=== PATIENT | female | born 1950 | race Caucasian/White ===

== ENCOUNTER 2022-04-02 15:48 | Inpatient (IN) ==
--- NOTE | 2022-04-02 16:11 | Emergency Department Note ---
HPI General Chief complaint: Recheck/Abnormal Lab/Rx Stated complaint: Covid Time Seen by Provider: 04/02/22 15:57 Source: patient Mode of arrival: wheelchair Limitations: no limitations History of Present Illness HPI Narrative: Narrative: This is a 71-year-old female who presents to the emergency department with a bnormal labs. Patient has been receiving IV daptomycin for a knee infection. She had lab work this morning that showed elevated kidney tests as well as elevated potassium. She was told to come to the emergency department for this. Patient states that her knee is doing better with the antibiotic. She denies any chest pain, shortness of breath, cough, nausea, vomiting, abdominal pain, or diarrhea. She had a mild sore throat this morning and took a home COVID test that was positive. She no longer has sore throat or any other COVID symptoms. Related Data Home Medications Medication Instructions Recorded Confirmed metoprolol succinate 50 mg capsule 50 mg PO QDAY 08/24/18 01/17/22 sprinkle, ext. release 24 hr losartan 50 mg tablet 50 mg PO QDAY 01/20/21 01/17/22 citalopram 40 mg tablet 40 mg PO QDAY 11/11/21 01/17/22 tramadol 50 mg tablet 50 mg PO TID PRN 11/11/21 01/17/22 Previous Rx's Medication Instructions Recorded albuterol sulfate 90 mcg/actuation 2 puff inhalation Q6H PRN 12/11/21 aerosol inhaler shortness of breath or wheezing #8.5 grams albuterol sulfate 90 mcg/actuation 2 puff inhalation .q4-6h PRN 01/17/22 aerosol inhaler (ProAir HFA) cough, shortness of breath, wheezing #8.5 grams prednisone 5 mg tablet See Rx Instructions PO .COMPLEX 01/17/22 #36 tabs Allergies Allergy/AdvReac Type Severity Reaction Status Date / Time Sulfa (Sulfonamide Allergy Severe ANAPHALAXIS Verified 04/02/22 15:55 Antibiotics) [SULFA (SULFONAMIDE ANTIBIOTICS)] latex [LATEX] Allergy Mild SWELLING/RE Verified 04/02/22 15:55 DNESS Cortisone Allergy Unknown "SICK" Verified 04/02/22 15:55 imiquimod Allergy Unknown Unknown Verified 04/02/22 15:55 sulfamethoxazole Allergy Unknown Unknown Verified 04/02/22 15:55 [From ] trimethoprim [From ] Allergy Unknown Unknown Verified 04/02/22 15:55 Carbonic Anhydrase Inhibitors AdvReac Unknown advise not Verified 04/02/22 15:55 to take due to r/o cdiff iv contrast Allergy Mild Hives Uncoded 01/17/22 13:55 Review of Systems ROS ROS Narrative: Narrative: All systems ED: reviewed and negative except as stated. [facility] Narrative Patient History Narrative: Narrative: Medical/Surgical/Family History All Active Problems (Updated 04/02/22 @ 22:37 by Philly Naqvi PA-C) COVID-19 (Acute) Hypoxia (Acute) Acute exacerbation of chronic obstructive pulmonary disease (Acute) Acute kidney injury (Acute) Acute hyperkalemia (Acute) Tinnitus (Acute) Headache (Acute) Sinusitis, acute (Acute) Cellulitis of right leg (Acute) History of arthroplasty of right knee (Acute) Acute exacerbation of chronic obstructive airways disease (Acute) Leg pain, right (Acute) Nocturnal hypoxia (Chronic) Hypersomnia (Chronic) Obesity (Chronic) Clostridium difficile colitis (Chronic) Chronic venous insufficiency (Chronic) Leg neuralgia (Chronic) Mixed incontinence urge and stress (Chronic) Recurrent acute sinusitis (Chronic) Generalized headaches (Chronic) Tremor, unspecified (Chronic) Nausea (Chronic) Bilateral thumb pain (Chronic) Abdominal pain, epigastric (Chronic) Dyspnea (Chronic) Incontinence of feces with fecal urgency (Chronic) Vesicular eczema of hands and feet (Chronic) Carpal tunnel syndrome, right upper limb (Chronic) Lumbar back pain (Chronic) Knee pain, right (Chronic) Basal cell carcinoma in situ of skin (Chronic) Dysuria (Chronic) Myalgia (Chronic) Pyelonephritis (Chronic) Anxiety (Chronic) Osteoarthrosis multiple sites, not specified as generalized (Chronic) COPD (chronic obstructive pulmonary disease) (Chronic) Paronychia (Acute) Abnormal liver function test (Chronic) Aortic aneurysm (Chronic) Dizziness (Chronic) Ocular migraine (Chronic) Stomach ache (Chronic) Recurrent Clostridium difficile diarrhea (Chronic) Hyperlipidemia (Chronic) Hypertension, essential (Chronic) Depression (Chronic) Joint pain (Chronic) Osteoarthritis (Chronic) Arthritis (Chronic) Tobacco use (Chronic) Medical History Abdominal pain, epigastric Abnormal liver function test Anxiety Aortic aneurysm Arthritis 2006 Basal cell carcinoma in situ of skin Shoulder Bilateral thumb pain Carpal tunnel syndrome, right upper limb Chronic venous insufficiency Clostridium difficile colitis COPD (chronic obstructive pulmonary disease) Depression 2006 Dizziness 2015 Dyspnea Dysuria Generalized headaches Headache Hepatitis HIV antibody positive Hyperlipidemia 2006 Hypersomnia Hypertension, essential 2006 Incontinence of feces with fecal urgency Joint pain 2006 Knee pain, right Leg neuralgia Lumbar back pain Mixed incontinence urge and stress Myalgia Nausea Nocturnal hypoxia Obesity Ocular migraine 2015 Osteoarthritis 2006 Osteoarthrosis multiple sites, not specified as generalized Pyelonephritis Recurrent acute sinusitis Recurrent Clostridium difficile diarrhea 2016 Sinusitis, acute Stomach ache 2016 following c-diff Tinnitus Tobacco use Tremor, unspecified Vesicular eczema of hands and feet Surgical History H/O colonoscopy (01/17/16) History of carpal tunnel surgery (~2012) Left History of total knee arthroplasty (~2012) Left S/P hip replacement (~2014) Left S/P knee replacement 2014 Family History Mother Arthritis Alzheimer's disease Stroke Heart disease Diabetes Father Arthritis Liver cancer Stroke Heart disease Sister Arthritis Alzheimer's disease Hypertension, essential Thyroid disease Social History Smoking Status: Current every day smoker Alcohol Intake Frequency: does not drink Substance Use: marijuana Exam Narrative Narrative: Narrative: General Limitations: no limitations General appearance: Present alert and obese Head Head: Present atraumatic and normocephalic Respiratory Respiratory: Present normal lung sounds bilaterally Cardiovascular Cardiovascular: Present regular rate, normal rhythm and normal heart sounds Adbominal Abdominal: Present soft; Absent tenderness Extremities Extremities: Present other (Well-healed scar over the left knee. Right knee has a Mepilex dressing over it. Mild swelling without erythema.) Course Vital Signs Vital signs: Vital Signs Temperature 97.0 F 04/02/22 15:51 Respiratory Rate 16 04/02/22 15:51 Blood Pressure 104/66 04/02/22 15:51 Oxygen Delivery Method Room Air 04/02/22 15:51 Temperature 97.0 F 04/02/22 15:51 Pulse Rate 82 04/02/22 20:29 Respiratory Rate 15 04/02/22 21:01 Blood Pressure 98/58 04/02/22 21:01 Pulse Oximetry (%) 92 04/02/22 20:29 Oxygen Delivery Method Room Air 04/02/22 15:51 MDM MDM Narrative Medical decision making narrative: Narrative: Chem-8 and EKG have been ordered. EKG is reviewed with the emergency room physician. There are no peaked T waves. Creatinine is 3.7, potassium 6. IV insulin, dextrose, and calcium gluconate were ordered. She is also treated with a liter of normal saline. I have discussed the patient with the emergency room physician. Plan is to admit the patient for acute kidney injury and hyper kalemia. Unfortunately there are no beds available at this hospital. I did speak with at [facility] in [facility]. He requested that a BMP be done at this time. If the patient's potassium and creatinine have improved she will be excepted at [facility]. A BMP was ordered. When results were available it became apparent that the labs were run on patient's original specimen. The results also showed a blood sugar of 29. This was rechecked and patient's blood sugar is 123 in the emergency department. I received a call while waiting on lab results from [facility] and after further discussion patient was not excepted at their hospital. A bed did not then become available at this hospital. I spoke with our bandoleer packer, Dr. Cisse, who stated that he would consult on this patient if the hospitalist were willing to admit this patient. I did speak with Dr. Lawson who is willing to accept this patient. Lab Data 04/02/22 16:58 Labs: Lab Results 04/02/22 04/02/22 04/02/22 Range/Units 16:28 16:58 18:11 WBC (4.5-11.0) K/mcL RBC (3.59-5.38) M/mcL Hgb (11.2-15.7) g/dL Hct (34.1-44.9) % POC Hct 26.0 L (36-48) MCV (80.0-100.0) fL MCH (26.0-34.0) pg MCHC (31.0-36.0) g/dL RDW (11.5-14.5) % Plt Count (140-440) K/mcL MPV (8.8-12.5) fL Immature Gran % (Auto) (0.0-0.5) % Neut % (Auto) (38.0-78.0) % Lymph % (Auto) (15.5-49.0) % [place] % (Auto) (1.0-12.0) % Eos % (Auto) (0.0-7.0) % Baso % (Auto) (0.0-2.0) % Lymph # (Auto) (1.50-4.80) K/mcL [place] # (Auto) (0.10-0.90) K/mcL Eos # (Auto) (0.00-0.70) K/mcL Baso # (Auto) (0.00-0.30) K/mcL Immature Gran # (0.00-0.05) K/mcl Absolute Neutrophils (1.80-8.00) K/mcL POC Sodium 134 (133-145) Sodium 133 (133-145) mmol/L POC Potassium 6.0 H* (3.3-5.1) Potassium 6.0 H* 5.7 H (3.3-5.1) mmol/L POC Chloride 104 (96-108) Chloride 100 (96-108) mmol/L Carbon Dioxide 23 (22-30) mmol/L POC Total CO2 25.0 (22-30) Anion Gap 10.0 (8.0-16.0) POC BUN 89 H (6-20) BUN 75 H (8-23) mg/dL Creatinine 2.9 H (0.6-1.1) mg/dL POC Creatinine 3.7 H (0.6-1.2) GFR Calculation 15 Glucose 99 (70-105) mg/dL POC Glucose 103 (70-105) Calcium 8.5 L (8.6-10.4) mg/dL POC WB Ioniz Calcium 1.18 (1.16-1.32) Total Bilirubin < 0.2 (0.1-1.0) mg/dL AST 15 (<32) U/L ALT 11 (<40) U/L Alkaline Phosphatase 138 H (39-117) U/L Total Protein 6.6 (5.9-8.4) gm/dL Albumin 3.0 L (3.2-5.2) gm/dL Globulin 3.6 (2.2-3.7) gm/dL Albumin/Globulin Ratio 0.8 L (1.0-2.3) 04/02/22 04/02/22 Range/Units 19:15 20:00 WBC 6.3 (4.5-11.0) K/mcL RBC 2.87 L (3.59-5.38) M/mcL Hgb 8.5 L (11.2-15.7) g/dL Hct 28.0 L (34.1-44.9) % POC Hct (36-48) MCV 97.6 (80.0-100.0) fL MCH 29.6 (26.0-34.0) pg MCHC 30.4 L (31.0-36.0) g/dL RDW 14.3 (11.5-14.5) % Plt Count 302 (140-440) K/mcL MPV 10.4 (8.8-12.5) fL Immature Gran % (Auto) 0.2 (0.0-0.5) % Neut % (Auto) 59.3 (38.0-78.0) % Lymph % (Auto) 22.2 (15.5-49.0) % [place] % (Auto) 11.5 (1.0-12.0) % Eos % (Auto) 6.3 (0.0-7.0) % Baso % (Auto) 0.5 (0.0-2.0) % Lymph # (Auto) 1.41 L (1.50-4.80) K/mcL [place] # (Auto) 0.73 (0.10-0.90) K/mcL Eos # (Auto) 0.40 (0.00-0.70) K/mcL Baso # (Auto) 0.03 (0.00-0.30) K/mcL Immature Gran # 0.01 (0.00-0.05) K/mcl Absolute Neutrophils 3.76 (1.80-8.00) K/mcL POC Sodium (133-145) Sodium 135 (133-145) mmol/L POC Potassium (3.3-5.1) Potassium 5.6 H (3.3-5.1) mmol/L POC Chloride (96-108) Chloride 101 (96-108) mmol/L Carbon Dioxide 22 (22-30) mmol/L POC Total CO2 (22-30) Anion Gap 12.0 (8.0-16.0) POC BUN (6-20) BUN 76 H (8-23) mg/dL Creatinine 3.0 H (0.6-1.1) mg/dL POC Creatinine (0.6-1.2) GFR Calculation 15 Glucose 29 L* (70-105) mg/dL POC Glucose (70-105) Calcium 8.8 (8.6-10.4) mg/dL POC WB Ioniz Calcium (1.16-1.32) Total Bilirubin (0.1-1.0) mg/dL AST (<32) U/L ALT (<40) U/L Alkaline Phosphatase (39-117) U/L Total Protein (5.9-8.4) gm/dL Albumin (3.2-5.2) gm/dL Globulin (2.2-3.7) gm/dL Albumin/Globulin Ratio (1.0-2.3) ED POC Tests ED POC Tests: PEDRO PABLO - SARS Antigen Negative Discharge Plan Patient/Caregiver Discharge Instructions Pt seen by FLIGHT SERVICE SPECIALIST/PA only: Yes Clinical Impression: Acute kidney injury, Acute hyperkalemia Patient Disposition: Xfer As Inpt ([facility]) Follow up with: Destiny Sarabia MD [Primary Care Provider] - Prescriptions: No Action metoprolol succinate 50 mg cap,susan,ER 24hr dose pack 50 mg PO QDAY citalopram 40 mg tablet 40 mg PO QDAY tramadol 50 mg tablet 50 mg PO TID PRN albuterol sulfate [ProAir HFA] 90 mcg/actuation HFA aerosol inhaler 2 puff inhalation .q4-6h PRN (Reason: cough, shortness of breath, wheezing) Qty: 8.5 0RF Rx Instructions: administer with spacer prednisone 5 mg tablet See Rx Instructions PO .COMPLEX Qty: 36 0RF Rx Instructions: prednisone 5 mg: take 8 tablets (40 mg) on Day 1; 7 tablets (35 mg) on Day 2; then decrease by 1 tablet every day until finished PO [id number] [Trelegy Ellipta] 100-62.5-25 mcg blister with device 1 inh inhalation QDAY 0RF losartan 50 mg tablet 50 mg PO QDAY albuterol sulfate 90 mcg/actuation HFA aerosol inhaler 2 puff inhalation Q6H PRN (Reason: shortness of breath or wheezing) Qty: 8.5 0RF
[2022-04-02 16:33] LABS: POC Calcium, Ionized 1.18 (1.16-1.32); POC Creatinine 3.7 (0.6-1.2)
[2022-04-02] MEDS ORDERED: INSULIN REGULAR, HUMAN 1 UNIT/0.01 ML UNIT IV ONE (16:46)
[2022-04-02] MEDS ORDERED: DEXTROSE 50% 50 ML VIAL IV ONE ×2 (16:46→20:54)
[2022-04-02] MEDS ORDERED: CALCIUM GLUCONATE 4.65 MEQ in DEXTROSE 5% IN WATER 50 ML IV ONE (16:54)
[2022-04-02 18:11] LABS: ALT/SGPT 11 U/L (<40); AST/SGOT 15 U/L (<32); Albumin/Globulin Ratio 0.8 (1.0-2.3); Alkaline Phosphatase 138 U/L (39-117); Bilirubin,Total < 0.2 mg/dL (0.1-1.0); Blood Urea Nitrogen 75 mg/dL (8-23); Calcium 8.5 mg/dL (8.6-10.4); Carbon Dioxide 23 mmol/L (22-30); Chloride 100 mmol/L (96-108); Globulin 3.6 gm/dL (2.2-3.7); Glomerular Filtration Rate 15; Glucose 99 mg/dL (70-105)
[2022-04-02] MEDS ORDERED: 0.9 % SODIUM CHLORIDE 1,000 ML IV ONE (18:34)
[2022-04-02 20:41] LABS: Basophils # (Auto) 0.03 K/mcL (0.00-0.30); Basophils % (Auto) 0.5 % (0.0-2.0); Eosinophils % (Auto) 6.3 % (0.0-7.0); Hemoglobin 8.5 g/dL (11.2-15.7); Lymphocytes # (Auto) 1.41 K/mcL (1.50-4.80); Lymphocytes % (Auto) 22.2 % (15.5-49.0); Mean Cell Volume 97.6 fL (80.0-100.0); Mean Corpuscular HGB Conc 30.4 g/dL (31.0-36.0); Mean Platelet Volume 10.4 fL (8.8-12.5); Monocytes # (Auto) 0.73 K/mcL (0.10-0.90); Monocytes % (Auto) 11.5 % (1.0-12.0); Neutrophils % (Auto) 59.3 % (38.0-78.0); Platelet Count 302 K/mcL (140-440); RBC 2.87 M/mcL (3.59-5.38); Red Cell Distribution Width 14.3 % (11.5-14.5); WBC 6.3 K/mcL (4.5-11.0)
[2022-04-02 20:55] LABS: Blood Urea Nitrogen 76 mg/dL (8-23); Calcium 8.8 mg/dL (8.6-10.4); Carbon Dioxide 22 mmol/L (22-30); Chloride 101 mmol/L (96-108); Glomerular Filtration Rate 15; Glucose 29 mg/dL (70-105)
[2022-04-02 21:29] LABS: Blood Urea Nitrogen 74 mg/dL (8-23); Calcium 8.2 mg/dL (8.6-10.4); Carbon Dioxide 22 mmol/L (22-30); Chloride 100 mmol/L (96-108); Glomerular Filtration Rate 16; Glucose 107 mg/dL (70-105)
--- NOTE | 2022-04-02 22:25 | Internal Med History&Physical ---
HPI History of Present Illness Patient information: Note initiated : 04/02/22 at 10:12 pm Service Date, if different from initiated Date: [] Patient: Corin Bryant a 71 y/o F admitted on for Covid. Chief Complaint: [] History of present illness: Ms. Bryant is a 71 year old F Patient presents to the ED sent in because she had abnormal labs. The labs were routine because she was on IV daptomycin for a knee infection. Patient had a revision of her right knee a week ago by Dr. Marcus at [place]. She was sent home on IV daptomycin infusions. Wound cultures that she showed grew MSSA. The only other new medications she started recently was torsemide several months ago when she started seeing Dr. Chowdhury for chronic kidney disease. She states that since she got out of the hospital she has had her good and bad days. She says since she has been out of the hospital she feels has not been drinking as much fluid as usual. She does have history of lower extremity edema which is improved since starting on the torsemide. She is found to have a creatinine of 2.9 and a potassium of 6.0. She received insulin and glucose in the ED. As well as calcium gluconate. She is also received IV fluids. Potassium did come down to 5.6. Patient also takes losartan. Review of Systems: Pertinent positives above plus constipation. Denies headache/fever/chills/nausea/vomiting/chest or abdominal pain/cough/dyspnea Remaining 10 point review of system reviewed negative PHYSICAL EXAM: General: Drowsy, Awakens, No acute Distress, obese Eyes/N/T: EOMI, no scleral icterus, PERRL, dry MM Head/Neck: neck supple, full ROM, normocephalic atraumatic CV: RRR, No murmurs, normal s1/s2 Pulm: Clear b/l, no wheezing/rhonchi/rales, no respiratory distress Abd: soft, nontender, +BS x4 Ext: no clubbing/cyanosis, trace b/l LE edema, Right knee incision dressing Neuro: Drowsy and sometimes forgetful or slow to respond, no focal deficits, moves all extremities, CN 2-12 grossly intact, sensations intact b/l upper/lower Psychiatric: Skin: warm/dry, normal color PFSH PFSH All Active Problems COVID-19 (Acute) Hypoxia (Acute) Acute exacerbation of chronic obstructive pulmonary disease (Acute) Tinnitus (Acute) Headache (Acute) Sinusitis, acute (Acute) Cellulitis of right leg (Acute) History of arthroplasty of right knee (Acute) Acute exacerbation of chronic obstructive airways disease (Acute) Leg pain, right (Acute) Nocturnal hypoxia (Chronic) Hypersomnia (Chronic) Obesity (Chronic) Clostridium difficile colitis (Chronic) Chronic venous insufficiency (Chronic) Leg neuralgia (Chronic) Mixed incontinence urge and stress (Chronic) Recurrent acute sinusitis (Chronic) Generalized headaches (Chronic) Tremor, unspecified (Chronic) Nausea (Chronic) Bilateral thumb pain (Chronic) Abdominal pain, epigastric (Chronic) Dyspnea (Chronic) Incontinence of feces with fecal urgency (Chronic) Vesicular eczema of hands and feet (Chronic) Carpal tunnel syndrome, right upper limb (Chronic) Lumbar back pain (Chronic) Knee pain, right (Chronic) Basal cell carcinoma in situ of skin (Chronic) Dysuria (Chronic) Myalgia (Chronic) Pyelonephritis (Chronic) Anxiety (Chronic) Osteoarthrosis multiple sites, not specified as generalized (Chronic) COPD (chronic obstructive pulmonary disease) (Chronic) Paronychia (Acute) Abnormal liver function test (Chronic) Aortic aneurysm (Chronic) Dizziness (Chronic) Ocular migraine (Chronic) Stomach ache (Chronic) Recurrent Clostridium difficile diarrhea (Chronic) Hyperlipidemia (Chronic) Hypertension, essential (Chronic) Depression (Chronic) Joint pain (Chronic) Osteoarthritis (Chronic) Arthritis (Chronic) Tobacco use (Chronic) Medical History Abdominal pain, epigastric Abnormal liver function test Anxiety Aortic aneurysm Arthritis 2006 Basal cell carcinoma in situ of skin Shoulder Bilateral thumb pain Carpal tunnel syndrome, right upper limb Chronic venous insufficiency Clostridium difficile colitis COPD (chronic obstructive pulmonary disease) Depression 2006 Dizziness 2015 Dyspnea Dysuria Generalized headaches Headache Hepatitis HIV antibody positive Hyperlipidemia 2006 Hypersomnia Hypertension, essential 2006 Incontinence of feces with fecal urgency Joint pain 2006 Knee pain, right Leg neuralgia Lumbar back pain Mixed incontinence urge and stress Myalgia Nausea Nocturnal hypoxia Obesity Ocular migraine 2015 Osteoarthritis 2006 Osteoarthrosis multiple sites, not specified as generalized Pyelonephritis Recurrent acute sinusitis Recurrent Clostridium difficile diarrhea 2016 Sinusitis, acute Stomach ache 2016 following c-diff Tinnitus Tobacco use Tremor, unspecified Vesicular eczema of hands and feet Surgical History H/O colonoscopy (01/17/16) History of carpal tunnel surgery (~2012) Left History of total knee arthroplasty (~2012) Left S/P hip replacement (~2014) Left S/P knee replacement 2014 Family History Mother Arthritis Alzheimer's disease Stroke Heart disease Diabetes Father Arthritis Liver cancer Stroke Heart disease Sister Arthritis Alzheimer's disease Hypertension, essential Thyroid disease Social History marital status: occupational status: employed occupation: [place] other: Children-4 smoking status: Current every day smoker tobacco type: cigarettes per day: 5 pack-years: 50 alcohol intake frequency: does not drink substance use type: marijuana MEDS/ALLERGIES Home Medications and Allergies Home Medications Medication Instructions Recorded Confirmed Type metoprolol succinate 50 mg capsule 50 mg PO QDAY 08/24/18 01/17/22 History sprinkle, ext. release 24 hr losartan 50 mg tablet 50 mg PO QDAY 01/20/21 01/17/22 History citalopram 40 mg tablet 40 mg PO QDAY 11/11/21 01/17/22 History tramadol 50 mg tablet 50 mg PO TID PRN 11/11/21 01/17/22 History albuterol sulfate 90 mcg/actuation 2 puff inhalation Q6H PRN 12/11/21 01/17/22 Rx aerosol inhaler shortness of breath or wheezing #8.5 grams albuterol sulfate 90 mcg/actuation 2 puff inhalation .q4-6h PRN 01/17/22 01/17/22 Rx aerosol inhaler (ProAir HFA) cough, shortness of breath, wheezing #8.5 grams prednisone 5 mg tablet See Rx Instructions PO .COMPLEX 01/17/22 01/17/22 Rx #36 tabs Allergies Allergy/AdvReac Type Severity Reaction Status Date / Time Sulfa (Sulfonamide Allergy Severe ANAPHALAXIS Verified 04/02/22 15:55 Antibiotics) [SULFA (SULFONAMIDE ANTIBIOTICS)] latex [LATEX] Allergy Mild SWELLING/RE Verified 04/02/22 15:55 DNESS Cortisone Allergy Unknown "SICK" Verified 04/02/22 15:55 imiquimod Allergy Unknown Unknown Verified 04/02/22 15:55 sulfamethoxazole Allergy Unknown Unknown Verified 04/02/22 15:55 [From ] trimethoprim [From ] Allergy Unknown Unknown Verified 04/02/22 15:55 Carbonic Anhydrase Inhibitors AdvReac Unknown advise not Verified 04/02/22 15:55 to take due to r/o cdiff iv contrast Allergy Mild Hives Uncoded 01/17/22 13:55 EXAM Constitutional Vitals: Temp Pulse Resp BP Pulse Ox O2 Del Method 97.0 F 82 16 96/82 92 Room Air 04/02/22 15:51 04/02/22 20:29 04/02/22 21:31 04/02/22 21:31 04/02/22 20:29 04/02/22 15:51 DATA Data Completed and Pending Labs: Labs from last 24 hours 04/02/22 04/02/22 04/02/22 20:00 20:00 19:15 WBC 6.3 RBC 2.87 L Hgb 8.5 L Hct 28.0 L POC Hct MCV 97.6 MCH 29.6 MCHC 30.4 L RDW 14.3 Plt Count 302 MPV 10.4 Immature Gran % (Auto) 0.2 Neut % (Auto) 59.3 Lymph % (Auto) 22.2 [place] % (Auto) 11.5 Eos % (Auto) 6.3 Baso % (Auto) 0.5 Lymph # (Auto) 1.41 L [place] # (Auto) 0.73 Eos # (Auto) 0.40 Baso # (Auto) 0.03 Immature Gran # 0.01 Absolute Neutrophils 3.76 POC Sodium Sodium 133 135 POC Potassium Potassium 5.8 H 5.6 H POC Chloride Chloride 100 101 Carbon Dioxide 22 22 POC Total CO2 Anion Gap 11.0 12.0 POC BUN BUN 74 H 76 H Creatinine 2.8 H 3.0 H POC Creatinine GFR Calculation 16 15 Glucose 107 H 29 L* POC Glucose Calcium 8.2 L 8.8 POC WB Ioniz Calcium Total Bilirubin AST ALT Alkaline Phosphatase Total Protein Albumin Globulin Albumin/Globulin Ratio 04/02/22 04/02/22 04/02/22 18:11 16:58 16:28 WBC RBC Hgb Hct POC Hct 26.0 L MCV MCH MCHC RDW Plt Count MPV Immature Gran % (Auto) Neut % (Auto) Lymph % (Auto) [place] % (Auto) Eos % (Auto) Baso % (Auto) Lymph # (Auto) [place] # (Auto) Eos # (Auto) Baso # (Auto) Immature Gran # Absolute Neutrophils POC Sodium 134 Sodium 133 POC Potassium 6.0 H* Potassium 5.7 H 6.0 H* POC Chloride 104 Chloride 100 Carbon Dioxide 23 POC Total CO2 25.0 Anion Gap 10.0 POC BUN 89 H BUN 75 H Creatinine 2.9 H POC Creatinine 3.7 H GFR Calculation 15 Glucose 99 POC Glucose 103 Calcium 8.5 L POC WB Ioniz Calcium 1.18 Total Bilirubin < 0.2 AST 15 ALT 11 Alkaline Phosphatase 138 H Total Protein 6.6 Albumin 3.0 L Globulin 3.6 Albumin/Globulin Ratio 0.8 L A/P Narrative A/P Narrative: A: *JORGE on CKD IV: 2/2 poor oral intake and volume depletion from diuretics + ARB *Hyperkalemia: 2/2 above, possibly component of daptomycin but more likely multifactorial from above *Encephalopathy(drowsy/forgetful): 2/2 above vs Uremia *Anemia, chronic: *HTN:soft on admit, monitor *COPD(not on home O2): cont home IH's, monitor *Depression/anxiety: cont ssri, monitor *s/p right knee revision d/t infection: on daptomycin outpt P: -IVF -kayexalate -hold ARB and BB for jorge and soft BP -hold torsemide -Monitor UOP, renal function, i/o -f/u chemistry/potassium, h&h -tele - -Home medication reconciliation -PT/OT -ppx: Heparin Time Spent With Patient Time: Total time spent is greater than 50% in coordination of care (as documented) at patient's floor/unit and/or counseling patient: Initial: Total time with patient: 75 - 90 minutes
[2022-04-03] MEDS ORDERED: SODIUM POLYSTYRENE SULFONATE 15 GM/60 ML SUSPENSION PO ONE ×2 (00:57→12:00)
[2022-04-03] MEDS ORDERED: 0.9 % SODIUM CHLORIDE 1,000 ML IV SCH ×2 (00:57→11:15)
[2022-04-03] MEDS ORDERED: ONDANSETRON 4 MG/2 ML VIAL IV PRN (00:57)
[2022-04-03] MEDS ORDERED: HYDROcodone/APAP 5/325MG TABLET PO PRN (00:57)
[2022-04-03] MEDS ORDERED: MAGNESIUM SULFATE 2 GM/50 ML BAG IV PRN (00:57)
[2022-04-03] MEDS ORDERED: POTASSIUM CHLORIDE 20 MEQ TABLET PO PRN ×2 (00:57)
[2022-04-03] MEDS ORDERED: LACTULOSE 20 GM/30 ML ORAL.SOL PO PRN (00:57)
[2022-04-03] MEDS ORDERED: POTASSIUM CHLORIDE 40 MEQ in DEXTROSE 5% IN WATER 500 ML IV PRN (00:57)
[2022-04-03] MEDS ORDERED: 0.9 % SODIUM CHLORIDE 500 ML IV ONE (00:57)
[2022-04-03] MEDS ORDERED: IPRATROPIUM/ALBUTEROL 3 ML AMPUL.NEB NEB PRN (00:57)
[2022-04-03] MEDS ORDERED: POLYETHYLENE GLYCOL 3350 17 GM PACKET PO PRN (00:57)
[2022-04-03] MEDS ORDERED: SENNOSIDES 1 TABLET PO PRN (00:57)
[2022-04-03] MEDS ORDERED: SODIUM POLYSTYRENE SULFONATE 15 GM/60 ML SUSPENSION ONE (01:09)
[2022-04-03] MEDS: 0.9 % SODIUM CHLORIDE 10 ML SYRINGE IV SCH ×6 (01:09→22:01)
[2022-04-03 06:20] LABS: Basophils # (Auto) 0.04 K/mcL (0.00-0.30); Basophils % (Auto) 0.6 % (0.0-2.0); Eosinophils # (Auto) 0.29 K/mcL (0.00-0.70); Eosinophils % (Auto) 4.4 % (0.0-7.0); Hematocrit 28.5 % (34.1-44.9); Hemoglobin 8.6 g/dL (11.2-15.7); Lymphocytes # (Auto) 1.76 K/mcL (1.50-4.80); Lymphocytes % (Auto) 26.8 % (15.5-49.0); Mean Cell Volume 96.9 fL (80.0-100.0); Mean Corpuscular HGB Conc 30.2 g/dL (31.0-36.0); Mean Platelet Volume 9.9 fL (8.8-12.5); Monocytes # (Auto) 0.78 K/mcL (0.10-0.90); Monocytes % (Auto) 11.9 % (1.0-12.0); Neutrophils % (Auto) 56.1 % (38.0-78.0); Platelet Count 268 K/mcL (140-440); RBC 2.94 M/mcL (3.59-5.38); Red Cell Distribution Width 14.5 % (11.5-14.5); WBC 6.6 K/mcL (4.5-11.0)
[2022-04-03 06:35] LABS: ALT/SGPT 14 U/L (<40); AST/SGOT 14 U/L (<32); Albumin/Globulin Ratio 0.8 (1.0-2.3); Alkaline Phosphatase 129 U/L (39-117); Bilirubin,Direct < 0.2 mg/dL (0-0.3); Bilirubin,Total 0.2 mg/dL (0.1-1.0); Blood Urea Nitrogen 68 mg/dL (8-23); Calcium 8.1 mg/dL (8.6-10.4); Carbon Dioxide 24 mmol/L (22-30); Chloride 103 mmol/L (96-108); Globulin 3.6 gm/dL (2.2-3.7); Glomerular Filtration Rate 18; Glucose 102 mg/dL (70-105); Lactate Dehydrogenase 263 U/L (135-225); Phosphorous 4.8 mg/dL (2.5-4.5); Triglycerides 207 mg/dL (<150); Uric Acid 7.9 mg/dL (2.5-8.0)
--- NOTE | 2022-04-03 07:17 | Nephrology Consult Note ---
HPI Date of Consult Consult Date: 04/03/22 Primary Care Provider: Destiny Sarabia Consult Narrative Chief complaint: Abnl Labs Reason for consult: Hyperkalemia and ARF on CKD 3 History of present illness: See Dr Lawson's note below: Patient presents to the ED sent in because she had abnormal labs. The labs were routine because she was on IV daptomycin for a knee infection. Patient had a revision of her right knee a week ago by Dr. Marcus at [place]. She was sent home on IV daptomycin infusions. Wound cultures that she showed grew MSSA. The only other new medications she started recently was torsemide several months ago when she started seeing Dr. Chowdhury for chronic kidney disease. She states that since she got out of the hospital she has had her good and bad days. She says since she has been out of the hospital she feels has not been drinking as much fluid as usual. She does have history of lower extremity edema which is improved since starting on the torsemide. She is found to have a creatinine of 2.9 and a potassium of 6.0. She received insulin and glucose in the ED. As well as calcium gluconate. She is also received IV fluids. Potassium did come down to 5.6. Patient also takes losartan. When I was called by ED staff, I was told BP 96/60. I advised the ER to stop LOSARTAN, Stop any NSAIDs and start to hydrate with IVF. More likely than ARF from Daptomycin would be ARF from diuresis, ARB, hypotension and vasodilation 2 /2 infection +/- NSAIDs. Also told 50% chance of needing Acute HD and if there is going to be improvement in GFR, it could take 72 hrs from last dose of losartan to see some improvement. Hears the history I was able to glean from the patient and some records from [facility]. Patient has a history of mild chronic kidney disease with creatinine about 1.[address] Chowdhury. When asked what her kidney disease is from all she can tell me is high blood pressure and smoking. Asked if she was 1 taking a lot of nonsteroidal anti-inflammatories for DJD she tells me no she has been told not to take those medicines. She does have obesity she apparently does not have diabetes or significant proteinuria. Orthopedic problems were initially addressed with right TKA in November [id number] by Dr. Marcus. When okay until she presented to the [facility] on 03/21/2022. There I see she was taking meloxicam 15 mg a day so this no doubt is an additional factor in her acute renal failure but the problem at that stay was that she had worsening knee pain swelling and redness she was placed on tramadol Percocet amoxicillin and Flagyl. Outpatient therapy apparently failed to improve her right knee pain. Hand notation in the chart on March 24, 2022 reports cultures from the knee with gram-positive cocci. On 03/24/2022 she will underwent a right knee irrigation and debridement and antibiotic bead placement and right knee revision with 1 component of the knee replaced. At time of opening the knee there was a gush of purulent fluid so there is no question of the diagnosis and the white count was 9800 at that time along with a BUN of 48 and a creatinine of 2.0 sodium was 132 potassium 4 9 albumin was 3.6 and cultures from the ninth were reported to grow Staph aureus which was pansensitive except for intermediate to tetracycline a PICC line was placed on the and ultimately she was placed on daptomycin every other day daily dosing. She was trained up to do it her self. When looking at the possibilities of how this could have been infected 2 years later it is obvious that this lady is having some sort of allergic reaction (meloxicam) and her body is covered with a red rash especially her lower extremities which is pruritic enough that she is excoriated and no doubt introduced bacteria into her knee by the rash and excoriation from itching. Also of the meloxicam is the missing link into why her renal function is declining as she is on both a Boone 2 inhibitor and a RAASI inhibitor which would lead to dysregulation of renal blood flow particularly if she had low blood pressure which she did in the emergency room as I was told of is in the 90s systolic. My advice would be absolutely no Boone 2 inhibitors aspirin or NSAIDs. Hydrate to get the blood pressure around 120/80 to 130/80 You can continue the metoprolol I will hold the tourism I had for a while Stop the losartan for at least 48 hours Since by history her rash started well before she was placed on daptomycin I would just continue without antibiotic unless she developed an eosinophilia or worsening renal function I expect both her kidney function and potassium to improve in 72 hours now that has been able to complete the history taking Serum Creatinine Serum Potassium cc:: CC: Ascencion Lawson Review of Systems Review of systems: As per Hx and Hospital med note Old records from ortho and [facility] reviewed (+) Meloxicam => RASH and now ARF on CKD 3 CKD 3 HTN and vascular disease [employer] Intern is [place]. PFSH PFSH All Active Problems (Updated 04/03/22 @ 14:29 by Ian Cisse MD) Infection of total knee replacement (Acute) Acute renal failure superimposed on chronic kidney disease (Acute) Allergic drug rash due to non-narcotic analgesic (Acute) Tobacco use (Chronic) Arthritis (Chronic) Osteoarthritis (Chronic) Joint pain (Chronic) Depression (Chronic) Hypertension, essential (Chronic) Hyperlipidemia (Chronic) Recurrent Clostridium difficile diarrhea (Chronic) Stomach ache (Chronic) Ocular migraine (Chronic) Dizziness (Chronic) Aortic aneurysm (Chronic) Abnormal liver function test (Chronic) Paronychia (Acute) COPD (chronic obstructive pulmonary disease) (Chronic) Osteoarthrosis multiple sites, not specified as generalized (Chronic) Anxiety (Chronic) Pyelonephritis (Chronic) Myalgia (Chronic) Dysuria (Chronic) Basal cell carcinoma in situ of skin (Chronic) Knee pain, right (Chronic) Lumbar back pain (Chronic) Carpal tunnel syndrome, right upper limb (Chronic) Vesicular eczema of hands and feet (Chronic) Incontinence of feces with fecal urgency (Chronic) Dyspnea (Chronic) Abdominal pain, epigastric (Chronic) Bilateral thumb pain (Chronic) Nausea (Chronic) Tremor, unspecified (Chronic) Generalized headaches (Chronic) Recurrent acute sinusitis (Chronic) Mixed incontinence urge and stress (Chronic) Leg neuralgia (Chronic) Chronic venous insufficiency (Chronic) Clostridium difficile colitis (Chronic) Obesity (Chronic) Hypersomnia (Chronic) Nocturnal hypoxia (Chronic) Leg pain, right (Acute) Cellulitis of right leg (Acute) History of arthroplasty of right knee (Acute) Acute exacerbation of chronic obstructive airways disease (Acute) Sinusitis, acute (Acute) Headache (Acute) Tinnitus (Acute) COVID-19 (Acute) Hypoxia (Acute) Acute exacerbation of chronic obstructive pulmonary disease (Acute) Acute kidney injury (Acute) Acute hyperkalemia (Acute) Medical History Abdominal pain, epigastric Abnormal liver function test Anxiety Aortic aneurysm Arthritis 2006 Basal cell carcinoma in situ of skin Shoulder Bilateral thumb pain Carpal tunnel syndrome, right upper limb Chronic venous insufficiency Clostridium difficile colitis COPD (chronic obstructive pulmonary disease) Depression 2006 Dizziness 2015 Dyspnea Dysuria Generalized headaches Headache Hepatitis HIV antibody positive Hyperlipidemia 2006 Hypersomnia Hypertension, essential 2006 Incontinence of feces with fecal urgency Joint pain 2006 Knee pain, right Leg neuralgia Lumbar back pain Mixed incontinence urge and stress Myalgia Nausea Nocturnal hypoxia Obesity Ocular migraine 2015 Osteoarthritis 2006 Osteoarthrosis multiple sites, not specified as generalized Pyelonephritis Recurrent acute sinusitis Recurrent Clostridium difficile diarrhea 2016 Sinusitis, acute Stomach ache 2016 following c-diff Tinnitus Tobacco use Tremor, unspecified Vesicular eczema of hands and feet Surgical History H/O colonoscopy (01/17/16) History of carpal tunnel surgery (~2012) Left History of total knee arthroplasty (~2012) Left S/P hip replacement (~2014) Left S/P knee replacement 2014 Family History Mother Arthritis Alzheimer's disease Stroke Heart disease Diabetes Father Arthritis Liver cancer Stroke Heart disease Sister Arthritis Alzheimer's disease Hypertension, essential Thyroid disease Social History marital status: occupational status: employed occupation: [place] other: Children-4 smoking status: Current every day smoker tobacco type: cigarettes per day: 5 pack-years: 50 alcohol intake frequency: does not drink substance use type: marijuana MEDS/ALLERGIES Home Medications and Allergies Home Medications Medication Instructions Recorded Confirmed Type metoprolol succinate 50 mg capsule 50 mg PO QDAY 08/24/18 04/03/22 History sprinkle, ext. release 24 hr losartan 50 mg tablet 50 mg PO QDAY 01/20/21 04/03/22 History citalopram 40 mg tablet 20 mg PO QDAY 11/11/21 04/03/22 History tramadol 50 mg tablet 50 mg PO TIDP PRN Pain 11/11/21 04/03/22 History albuterol sulfate 90 mcg/actuation 2 puff inhalation Q6H PRN 12/11/21 04/03/22 Rx aerosol inhaler shortness of breath or wheezing #8.5 grams albuterol sulfate 90 mcg/actuation 2 puff inhalation .q4-6h PRN 01/17/22 04/03/22 Rx aerosol inhaler (ProAir HFA) cough, shortness of breath, wheezing #8.5 grams aspirin 81 mg tablet 81 mg PO QHS 04/03/22 04/03/22 History cetirizine 10 mg tablet (Zyrtec) 10 mg PO QDAY 04/03/22 04/03/22 History daptomycin 425 mg IV 3XW 04/03/22 04/03/22 History gabapentin 300 mg capsule 300 mg PO QAM 04/03/22 04/03/22 History hydrocodone 10 mg-acetaminophen 1 - 2 tab PO Q4-6HP PRN Pain 04/03/22 04/03/22 History 325 mg tablet torsemide 20 mg tablet 40 mg PO QDAY 04/03/22 04/03/22 History Allergies Allergy/AdvReac Type Severity Reaction Status Date / Time Sulfa (Sulfonamide Allergy Severe ANAPHALAXIS Verified 04/02/22 15:55 Antibiotics) [SULFA (SULFONAMIDE ANTIBIOTICS)] latex [LATEX] Allergy Mild SWELLING/RE Verified 04/02/22 15:55 DNESS Cortisone Allergy Unknown "SICK" Verified 04/02/22 15:55 imiquimod Allergy Unknown Unknown Verified 04/02/22 15:55 sulfamethoxazole Allergy Unknown Unknown Verified 04/02/22 15:55 [From ] trimethoprim [From ] Allergy Unknown Unknown Verified 04/02/22 15:55 Carbonic Anhydrase Inhibitors AdvReac Unknown advise not Verified 04/02/22 15:55 to take due to r/o cdiff iv contrast Allergy Mild Hives Uncoded 01/17/22 13:55 Physical Examination Vital Signs Vital signs: Temp Pulse Resp BP Pulse Ox O2 Del Method 36.7 C 77 19 109/62 91 Room Air 04/03/22 04:01 04/03/22 04:01 04/03/22 06:01 04/03/22 06:01 04/03/22 06:01 04/03/22 00:31 General Appearance General appearance: appears started age and obese EENT EENT: ATNC and PERRL Neck Neck: no JVD and no carotid bruit Cardiovascular Cardiology: no murmurs, no rub and no gallops Gastrointestinal Gastrointestinal: normoactive bowel sounds and no tenderness Integumentary Integumentary: rash (Red rash involving the legs trunk and arms with excoriation from itching) Neurologic Neurologic: no focal deficit, no asterixis, strength 5/5 and CN 3-12 intact Musculoskeletal Musculoskeletal: deformities (Swollen right knee) and erythema Psychiatric Psychiatric: mood/affect appropriate Results Lab Results 04/03/22 05:30 04/03/22 05:30 Lab results: Most recent lab results Calcium 8.1 mg/dL (8.6-10.4) L 04/03/22 05:30 Phosphorus 4.8 mg/dL (2.5-4.5) H 04/03/22 05:30 Magnesium 1.6 mg/dL (1.6-2.5) 04/03/22 05:30 A/P Assessment and plan (1) Infection of total knee replacement: Status: Acute (2) Acute renal failure superimposed on chronic kidney disease: Status: Acute Comment: Acute renal failure seems likely due to the combination of meloxicam losartan and diuretics. Currently there is some low blood pressure in the ER which would add to renal hypoperfusion. Expect GFR to improve 24 to 72 hours after stopping losartan and meloxicam. Hydrate with normal saline Her underlying renal disease is mild and probably secondary to hypertension and/or vascular disease The differential diagnosis would be acute interstitial nephritis, acute renal hypoperfusion due to the combination of diuretics ARB's and meloxicam, ATN, or infective glomerular nephritis. The most likely explanation would be the drug combination and acute renal hypoperfusion (3) Allergic drug rash due to non-narcotic analgesic: Status: Acute Comment: By history this started before she began to use daptomycin, you have struggled before that was meloxicam Time Spent With Patient Time: Total time spent is greater than 50% in coordination of care (as documented) at patient's floor/unit and/or counseling patient: Initial: Total time with patient: 55 - 74 minutes
[2022-04-03] MEDS ORDERED: HYDROcodone/APAP 10/325MG TABLET PO PRN (08:12)
--- NOTE | 2022-04-03 08:13 | Internal Med Progress Note ---
SUBJECTIVE Subjective Patient information: Note initiated : 04/03/22 at 8:07 am Service Date, if different from initiated Date: [] Patient: Corin Bryant 71 y/o F admitted on 04/03/22 for Covid. Chief Complaint: [] Interval history: History of present illness: Ms. Bryant is a 71 year old F Patient presents to the ED sent in because she had abnormal labs. The labs were routine because she was on IV daptomycin for a knee infection. Patient had a revision of her right knee a week ago by Dr. Marcus at [place]. She was sent home on IV daptomycin infusions. Wound cultures that she showed grew MSSA. The only other new medications she started recently was torsemide several months ago when she started seeing Dr. Chowdhury for chronic kidney disease. She states that since she got out of the hospital she has had her good and bad days. She says since she has been out of the hospital she feels has not been drinking as much fluid as usual. She does have history of lower extremity edema which is improved since starting on the torsemide. She is found to have a creatinine of 2.9 and a potassium of 6.0. She received insulin and glucose in the ED. As well as calcium gluconate. She is also received IV fluids. Potassium did come down to 5.6. Patient also takes losartan. 04/03 Patient seems groggy this morning. Does awaken enough to answer questions. will hold gabapentin. Hemoglobin mid eights. Potassium still elevated but improvin g slowly. 5.6. Creatinine 2.5. Patient does report episode of diarrhea with the Kayexalate. Review of Systems: denies headache/fever/chills/nausea/vomiting/chest or abdominal pain/cough/dyspnea. Otherwise see above. PHYSICAL EXAM: General: Drowsy, Awakens, No acute Distress, obese Eyes/N/T: EOMI, no scleral icterus, Head/Neck: neck supple, full ROM, CV: RRR, No murmurs, Pulm: Clear b/l, no wheezing/rhonchi/rales, no respiratory distress Abd: soft, nontender, +BS x4 Ext: no clubbing/cyanosis, trace b/l LE edema, Right knee incision dressing Neuro: Drowsy and sometimes forgetful or slow to respond, no focal deficits, moves all extremities, sensations intact b/l upper/lower Psychiatric: Skin: warm/dry, normal color Constitutional Vitals: Vital Signs Temp Pulse Resp BP Pulse Ox O2 Del Method 98.1 F 77 19 109/62 91 Room Air 04/03/22 04:01 04/03/22 04:01 04/03/22 06:01 04/03/22 06:01 04/03/22 06:01 04/03/22 00:31 Period Temp Pulse Resp BP Sys/Mcmahon Pulse Ox O2 Del Method O2 Flow Rate Last 24 Hr 97.0 F-98.1 F 72-86 13-20 94-148/58-82 90-99 Room Air-Room Air Intake and Output 04/02/22 04/03/22 04/03/22 19:59 03:59 11:59 Intake Total 57 1503 Output Total 300 Balance 57 1203 Weight 65.771 kg 114.441 kg Intake & Output: Intake & Output 04/02/22 04/03/22 04/03/22 19:59 03:59 11:59 Intake Total 57 1503 Output Total 300 Balance 57 1203 Weight 65.771 kg 114.441 kg Intake: IV 57 1503 Sodium Chloride 0.9% 500 ml @ 1500 Wide Open IV BOLUS ONE Rx#: [id number] Calcium Gluconate 4.65 Meq In 57 3 Dextrose 5% in Water 50 ml @ 100 mls/hr IV ONCE ONE Rx#: [id number] Output: Void Amount 300 Other: Urine Appearance Cloudy Urine Color Bright Yellow Stool Size Copious Stool Color Brown Stool Consistency Soft Formed Liquid Watery Loose # Voids 1 # Bowel Movements 1 OBJ DATA Labs 04/03/22 05:30 04/03/22 05:30 Labs: Abnormal Lab Results 04/03/22 04/03/22 04/02/22 05:30 05:30 20:00 RBC 2.94 L Hgb 8.6 L Hct 28.5 L POC Hct MCHC 30.2 L Lymph # (Auto) POC Potassium Potassium 5.6 H 5.8 H POC BUN BUN 68 H 74 H Creatinine 2.5 H 2.8 H POC Creatinine Glucose 107 H Calcium 8.1 L 8.2 L Phosphorus 4.8 H Alkaline Phosphatase 129 H Lactate Dehydrogenase 263 H Albumin 3.0 L Albumin/Globulin Ratio 0.8 L Triglycerides 207 H 0204/02/22 04/02/22 20:00 19:15 18:11 RBC 2.87 L Hgb 8.5 L Hct 28.0 L POC Hct MCHC 30.4 L Lymph # (Auto) 1.41 L POC Potassium Potassium 5.6 H 5.7 H POC BUN BUN 76 H Creatinine 3.0 H POC Creatinine Glucose 29 L* Calcium Phosphorus Alkaline Phosphatase Lactate Dehydrogenase Albumin Albumin/Globulin Ratio Triglycerides 04/02/22 04/02/22 16:58 16:28 RBC Hgb Hct POC Hct 26.0 L MCHC Lymph # (Auto) POC Potassium 6.0 H* Potassium 6.0 H* POC BUN 89 H BUN 75 H Creatinine 2.9 H POC Creatinine 3.7 H Glucose Calcium 8.5 L Phosphorus Alkaline Phosphatase 138 H Lactate Dehydrogenase Albumin 3.0 L Albumin/Globulin Ratio 0.8 L Triglycerides Meds: Medications Acetaminophen (Acetaminophen 325 Mg Tablet) 650 mg PO Q6HP PRN; Protocol PRN Reason: Per Pain Protocol/Fever > 101 Hydrocodone Bitart/Acetaminophen (Hydrocodone/Apap 5/325mg Tablet) 1 tab PO Q4HP PRN PRN Reason: PAIN LEVEL 3-6 Albuterol/Ipratropium (Ipratropium/Albuterol 3 Ml Ampul.Neb) 3 ml NEB Q4HP PRN PRN Reason: Shortness Of Breath Docusate Sodium (Docusate Sodium 100 Mg Capsule) 100 mg PO BID [facility] Heparin Sodium (Porcine) (Heparin 5,000 Unit/Ml Vial) 5,000 unit SQ Q12 LOU Heparin Sodium (Porcine) (Heparin Flush 10 Units/Ml 5 Ml Syringe) 2 ml IV Q12 [facility] Potassium Chloride 40 meq/ (Dextrose) 520 mls @ 130 mls/hr IV UD PRN PRN Reason: Potassium < 3 Magnesium Sulfate (Magnesium Sulfate) 2 gm in 50 mls @ 50 mls/hr IV UD PRN PRN Reason: Magnesium </= 1.6 Sodium Chloride (Sodium Chloride 0.9%) 1,000 mls @ 100 mls/hr IV .Q10H [facility] Stop: 04/03/22 10:56 Last Admin: 04/03/22 01:09 Dose: 100 mls/hr Labetalol HCl (Labetalol 5 Mg/Ml Ml) 0 mg IV Q2HP PRN PRN Reason: Hypertension Lactulose (Lactulose 20 Gm/30 Ml Oral.Solange) 20 gm PO DAILYP PRN PRN Reason: Constipation Ondansetron HCl (Ondansetron 4 Mg/2 Ml Vial) 4 mg IV Q4HP PRN PRN Reason: Nausea And Vomiting Polyethylene Glycol (Polyethylene Glycol 3350 17 Gm Packet) 17 gm PO DAILYP PRN PRN Reason: Constipation Potassium Chloride (Potassium Chloride 20 Meq Tablet) 40 meq PO UD PRN PRN Reason: Potssium is 3-3.5 Potassium Chloride (Potassium Chloride 20 Meq Tablet) 40 meq PO UD PRN PRN Reason: Potassium < 3 Senna (Sennosides 1 Tablet) 2 tab PO DAILYP PRN PRN Reason: Constipation Sodium Chloride (0.9 % Sodium Chloride 10 Ml Syringe) 10 ml IV Q8 [facility] Last Admin: 04/03/22 05:37 Dose: 10 ml Sodium Chloride (0.9 % Sodium Chloride 10 Ml Syringe) 10 ml IV Q12 LOU A/P Narrative A/P Narrative: A: *JORGE on CKD IV: 2/2 poor oral intake and volume depletion from diuretics + ARB *Hyperkalemia: 2/2 above, possibly component of daptomycin but more likely multifactorial from above *Encephalopathy(drowsy/forgetful): 2/2 above vs Uremia *Anemia, chronic: *HTN:soft on admit, monitor *COPD(not on home O2): cont home IH's, monitor *Depression/anxiety: cont ssri, monitor *s/p right knee revision d/t infection: on daptomycin outpt *Obese: bmi 43 P: -IVF's -kayexalate -hold ARB and BB for jorge and soft BP -hold torsemide -Monitor UOP, renal function, i/o -f/u chemistry/potassium, h&h -tele - -PT/OT -ppx: Heparin Time Spent With Patient Time: Total time spent is greater than 50% in coordination of care (as documented) at patient's floor/unit and/or counseling patient: Subsequent: Total time with patient: 50 - 65 Minutes QUALITY VTE Deep Vein Thrombosis/Pulmonary Embolism Present on Admission: No
[2022-04-03] MEDS ORDERED: traMADol 50 MG TABLET PO PRN (08:20)
[2022-04-03] MEDS: DOCUSATE SODIUM 100 MG CAPSULE PO SCH ×2 (08:40→21:20)
[2022-04-03] MEDS: CITALOPRAM 20 MG TABLET PO SCH (08:48)
[2022-04-03] MEDS: HEPARIN 5,000 UNIT/ML VIAL SQ SCH ×2 (08:49→21:18)
[2022-04-03] MEDS ORDERED: GABAPENTIN 300 MG CAPSULE PO SCH (09:00)
[2022-04-03 11:01] LABS: Appearance,Urine SL CLOUDY (Clear); Bacteria,Urine MANY /hpf (0); Bilirubin,Urine NEGATIVE (Negative); Color,Urine LT. YELLOW; Culture Indicated,Urine yes; Glucose,Urine (UA) NEGATIVE (Negative); Ketones,Urine NEGATIVE (Negative); Leukocyte Esterase,Urine TRACE /uL (Negative); Nitrate,Urine Positive (Negative); PH,Urine 5.5 (5.0-9.0); Protein,Urine NEGATIVE (Negative); Urine Blood TRACE-INTACT ery/mcL (Negative); Urine Hyaline Cast 4 /lph (0-2); Urine RBC 1 /hpf (0-3); Urine Squamous Epithelial Cell 0 /hpf (0-4); Urine WBC 71 /hpf (0-4); Urobilinogen,Urine Normal
[2022-04-03] MEDS ORDERED: DAPTOMYCIN IV SCH (12:00)
[2022-04-03 13:48] LABS: Sodium, Urine Random 57 mmol/L
[2022-04-03 13:53] LABS: Creatinine,Urine Random 58.3 mg/dL (28.0-217.0)
[2022-04-03] MEDS ORDERED: DAPTOmycin 500 MG VIAL IV SCH (16:00)
[2022-04-03] MEDS: LABETALOL 5 MG/ML ML IV PRN (19:21)
[2022-04-03] MEDS ORDERED: ASPIRIN 81 MG TAB.CHEW PO SCH (21:00)
[2022-04-03] MEDS: BUDESONIDE 0.5 MG/2 ML AMPUL.NEB NEB SCH (21:25)
[2022-04-04] MEDS: ACETAMINOPHEN 325 MG TABLET PO PRN ×2 (02:36→07:34)
[2022-04-04] MEDS: 0.9 % SODIUM CHLORIDE 10 ML SYRINGE IV SCH ×2 (05:47→09:25)
[2022-04-04] MEDS: LABETALOL 5 MG/ML ML IV PRN (07:07)
[2022-04-04 07:08] LABS: Complement C3 131.6 mg/dL (90.0-180.0)
[2022-04-04 07:32] LABS: ALT/SGPT 10 U/L (<40); AST/SGOT 12 U/L (<32); Albumin 2.9 gm/dL (3.2-5.2); Albumin/Globulin Ratio 0.9 (1.0-2.3); Alkaline Phosphatase 115 U/L (39-117); Bilirubin,Direct < 0.2 mg/dL (0-0.3); Bilirubin,Total 0.2 mg/dL (0.1-1.0); Blood Urea Nitrogen 47 mg/dL (8-23); Calcium 8.6 mg/dL (8.6-10.4); Carbon Dioxide 24 mmol/L (22-30); Chloride 108 mmol/L (96-108); Globulin 3.1 gm/dL (2.2-3.7); Glomerular Filtration Rate 26; Glucose 86 mg/dL (70-105); Lactate Dehydrogenase 158 U/L (135-225); Phosphorous 3.8 mg/dL (2.5-4.5); Triglycerides 143 mg/dL (<150); Uric Acid 8.3 mg/dL (2.5-8.0)
--- NOTE | 2022-04-04 07:32 | EKG ---
[facility] Test Date: 2022-04-02 Pat Name: Corin Bryant Department: ED Room: Gender: Female Program Review Director: BERNIE : 1950 Requested By: Philly Naqvi Order Number: [id number] Reading MD: Benigno Beyer Measurements Intervals [place] Rate: 80 P: 145 ND: 192 QRS: 68 QRSD: 135 T: 34 QT: 361 QTc: 416 Interpretive Statements Sinus or ectopic atrial rhythm Right bundle branch block excessive artifact Electronically Signed On 04-04-2022 7:32:51 PST by Benigno Beyer /store/[id number]
--- NOTE | 2022-04-04 07:49 | Nephrology Progress Note ---
SUBJECTIVE Subjective Patient information: Note initiated : 04/04/22 at 7:47 am Service Date, if different from initiated Date: [] Patient: Corin Bryant 71 y/o F admitted on 04/03/22 for Covid-Hyper kalemia,Encephalopathy,JORGE. Chief Complaint:[ARF on CKD3] Principal diagnosis: ARF superimposed on CKD 3 with hyperkalemia Interval history: ARF on CKD [address] Chowdhury MSSA right need TKR with washout, ABx beads, component replacement and MSSA on cultue HTN on ARB Placed on MELOXICAM OUTPATIENT Developed rash arms, legs, trunk with itching and excoriation Placed on Daptomycin for infected knee Developed hyperkalemia and ARF For reasons not clear to me was sent to [facility] where none of the involved MDs work. ARF due to ARB, low BP (90's in ED), vasodilation from rash, meloxicam and torsemide. Fena <2% and TTKG c/w renal causes of hyperkalemia. No evidence of drug induced AIN. Rash is temporally related to Meloxicam. No lab evidence of infectious GN GFR better and hyperkalemia better and has received torsemide and losartan here. OK for discharge but if I strongly recommend STOPPING ACE1 and ARB as she is likely to have someone restart a NSAID or ROLLINS [address]. Also hold the furosemide since this was started about 3 months ago and could be inv olved in her drug-induced rash. Given some Solu-Medrol Dosepak as she has been on antibiotics 2 weeks ectomy is improving but the Rash is not. Pertinent ROS: itchy rash Additional PMFSH (Level 3 Only): N/A Constitutional Vitals: Vital Signs Temp Pulse Resp BP Pulse Ox O2 Del Method 36.6 C 100 H 16 162/87 95 Room Air 04/04/22 07:02 04/04/22 04:28 04/04/22 07:02 04/04/22 07:02 04/04/22 07:02 04/04/22 07:02 Period Temp Pulse Resp BP Sys/Mcmahon Pulse Ox O2 Del Method O2 Flow Rate Last 24 Hr 36.6 C-37.1 C 83-100 16-30 113-162/70-98 92-100 Room Air-Room Air Intake and Output 04/03/22 04/04/22 04/04/22 19:59 03:59 11:59 Intake Total 80 40 Output Total 725 15 Balance 80 -725 25 Weight 118.025 kg Intake & Output: Intake & Output 04/03/22 04/04/22 04/04/22 19:59 03:59 11:59 Intake Total 80 40 Output Total 725 15 Balance 80 -725 25 Weight 118.025 kg Intake: IV 50 IV - Manual Only 30 40 Output: Void Amount 725 Other 15 Other: Meal Lunch Percent of Meal Consumed 0% Urine Appearance Clear Cloudy Urine Color Yellow Yellow Urine Odor Normal Normal Stool Size Small Small Stool Color Yellow Brown Stool Consistency Soft Soft # Voids 2 # Bowel Movements 1 1 # of times incontinent of 1 Bowels General appearance: cooperative and obese Neck Neck exam: Present normal inspection; Absent lymphadenopathy or meningismus Respiratory Respiratory exam: Present CTAB Cardiovascular Cardiovascular exam: Present normal rate and rhythm, +S1 and +S2 GI/Abdominal GI/Abdominal exam: Present normal bowel sounds Extremities Exam Additional comments: Diffuse rash which is less red today and marked excoriations on the arms legs and trunk Neurological Exam Additional comments: Nonfocal Psychiatric Psychiatric exam: Present normal affect Skin Additional comments: Diffuse rash with excoriations involving trunk arms and legs A/P Assessment and plan (1) Infection of total knee replacement: Status: Acute (2) Acute renal failure superimposed on chronic kidney disease: Plan: Improving nicely Okay for discharge but stop the torsemide, losartan, and meloxicam which she states he does not think she was taking but it was clearly on her prescribed m edication list from the note at [facility] orthopedics 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 Currently there is some low blood pressure in the ER which would add to renal hypoperfusion. Expect GFR to improve 24 to 72 hours after stopping losartan and meloxicam. Hydrate with normal saline Her underlying renal disease is mild and probably secondary to hypertension and/or vascular disease The differential diagnosis would be acute interstitial nephritis, acute renal hypoperfusion due to the combination of diuretics ARB's and meloxicam, ATN, or infective glomerular nephritis. 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
--- NOTE | 2022-04-04 08:09 | Internal Med Progress Note ---
SUBJECTIVE Subjective Patient information: Note initiated : 04/04/22 at 8:05 am Service Date, if different from initiated Date: [] Patient: Corin Bryant 71 y/o F admitted on 04/03/22 for Covid-Hyper kalemia,Encephalopathy,JORGE. Chief Complaint: [] Principal diagnosis: ARF superimposed on CKD 3 with hyperkalemia Interval history: History of present illness: Ms. Bryant is a 71 year old F Patient presents to the ED sent in because she had abnormal labs. The labs were routine because she was on IV daptomycin for a knee infection. Patient had a revision of her right knee a week ago by Dr. Marcus at [place]. She was sent home on IV daptomycin infusions. Wound cultures that she showed grew MSSA. The only other new medications she started recently was torsemide several months ago when she started seeing Dr. Chowdhury for chronic kidney disease. She states that since she got out of the hospital she has had her good and bad days. She says since she has been out of the hospital she feels has not been drinking as much fluid as usual. She does have history of lower extremity edema which is improved since starting on the torsemide. She is found to have a creatinine of 2.9 and a potassium of 6.0. She received insulin and glucose in the ED. As well as calcium gluconate. She is also received IV fluids. Potassium did come down to 5.6. Patient also takes losartan. 04/03 Patient seems groggy this morning. Does awaken enough to answer questions. will hold gabapentin. Hemoglobin mid eights. Potassium still elevated but improving slowly. 5.6. Creatinine 2.5. Patient does report episode of diarrhea with the Kayexalate. 04/04 Patient seems to be feeling a bit better today. More alert and awake. Mentat ion more clear. She does not remember extremity from yesterday. Review of Systems: denies headache/fever/chills/nausea/vomiting/chest or abdominal pain/cough/dyspnea. Otherwise see above. PHYSICAL EXAM: General: Drowsy, Awakens, No acute Distress, obese Eyes/N/T: EOMI, no scleral icterus, Head/Neck: neck supple, full ROM, CV: RRR, No murmurs, Pulm: Clear b/l, no wheezing/rhonchi/rales, no respiratory distress Abd: soft, nontender, +BS x4 Ext: no clubbing/cyanosis, trace b/l LE edema, Right knee incision dressing Neuro: Drowsy and sometimes forgetful or slow to respond, no focal deficits, moves all extremities, sensations intact b/l upper/lower Psychiatric: Skin: warm/dry, normal color Constitutional Vitals: Vital Signs Temp Pulse Resp BP Pulse Ox O2 Del Method 97.9 F 100 H 16 162/87 95 Room Air 04/04/22 07:02 04/04/22 04:28 04/04/22 07:02 04/04/22 07:02 04/04/22 07:02 04/04/22 07:02 Period Temp Pulse Resp BP Sys/Mcmahon Pulse Ox O2 Del Method O2 Flow Rate Last 24 Hr 97.9 F-98.7 F 88-100 16-30 113-162/72-98 93-100 Room Air-Room Air Intake and Output 04/03/22 04/04/22 04/04/22 19:59 03:59 11:59 Intake Total 80 40 Output Total 725 15 Balance 80 -725 25 Weight 118.025 kg Intake & Output: Intake & Output 04/03/22 04/04/22 04/04/22 19:59 03:59 11:59 Intake Total 80 40 Output Total 725 15 Balance 80 -725 25 Weight 118.025 kg Intake: IV 50 IV - Manual Only 30 40 Output: Void Amount 725 Other 15 Other: Meal Lunch Percent of Meal Consumed 0% Urine Appearance Clear Cloudy Urine Color Yellow Yellow Urine Odor Normal Normal Stool Size Small Small Stool Color Yellow Brown Stool Consistency Soft Soft # Voids 2 # Bowel Movements 1 1 # of times incontinent of 1 Bowels OBJ DATA Labs 04/03/22 05:30 04/04/22 05:20 Labs: Abnormal Lab Results 04/04/22 04/03/22 04/03/22 05:20 09:40 09:40 RBC Hgb Hct POC Hct MCHC Lymph # (Auto) POC Potassium Potassium POC BUN BUN 47 H Creatinine 1.9 H POC Creatinine Glucose Uric Acid 8.3 H Calcium Phosphorus Alkaline Phosphatase Lactate Dehydrogenase Albumin 2.9 L Albumin/Globulin Ratio 0.9 L Triglycerides Urine Appearance Sl cloudy A Urine Occult Blood Trace-intact A Urine Nitrate Positive A Ur Leukocyte Esterase Trace A Urine WBC 71 H Urine Bacteria Many A Hyaline Casts 4 H Urine Eosinophils <1% A Ur Random Chloride 04/03/22 04/03/22 04/03/22 09:40 05:30 05:30 RBC 2.94 L Hgb 8.6 L Hct 28.5 L POC Hct MCHC 30.2 L Lymph # (Auto) POC Potassium Potassium 5.6 H POC BUN BUN 68 H Creatinine 2.5 H POC Creatinine Glucose Uric Acid Calcium 8.1 L Phosphorus 4.8 H Alkaline Phosphatase 129 H Lactate Dehydrogenase 263 H Albumin 3.0 L Albumin/Globulin Ratio 0.8 L Triglycerides 207 H Urine Appearance Urine Occult Blood Urine Nitrate Ur Leukocyte Esterase Urine WBC Urine Bacteria Hyaline Casts Urine Eosinophils Ur Random Chloride 43 L 04/02/22 04/02/22 04/02/22 20:00 20:00 19:15 RBC 2.87 L Hgb 8.5 L Hct 28.0 L POC Hct MCHC 30.4 L Lymph # (Auto) 1.41 L POC Potassium Potassium 5.8 H 5.6 H POC BUN BUN 74 H 76 H Creatinine 2.8 H 3.0 H POC Creatinine Glucose 107 H 29 L* Uric Acid Calcium 8.2 L Phosphorus Alkaline Phosphatase Lactate Dehydrogenase Albumin Albumin/Globulin Ratio Triglycerides Urine Appearance Urine Occult Blood Urine Nitrate Ur Leukocyte Esterase Urine WBC Urine Bacteria Hyaline Casts Urine Eosinophils Ur Random Chloride 04/02/22 04/02/22 04/02/22 18:11 16:58 16:28 RBC Hgb Hct POC Hct 26.0 L MCHC Lymph # (Auto) POC Potassium 6.0 H* Potassium 5.7 H 6.0 H* POC BUN 89 H BUN 75 H Creatinine 2.9 H POC Creatinine 3.7 H Glucose Uric Acid Calcium 8.5 L Phosphorus Alkaline Phosphatase 138 H Lactate Dehydrogenase Albumin 3.0 L Albumin/Globulin Ratio 0.8 L Triglycerides Urine Appearance Urine Occult Blood Urine Nitrate Ur Leukocyte Esterase Urine WBC Urine Bacteria Hyaline Casts Urine Eosinophils Ur Random Chloride Meds: Medications Acetaminophen (Acetaminophen 325 Mg Tablet) 650 mg PO Q6HP PRN; Protocol PRN Reason: Per Pain Protocol/Fever > 101 Last Admin: 04/04/22 07:34 Dose: 650 mg Albuterol/Ipratropium (Ipratropium/Albuterol 3 Ml Ampul.Neb) 3 ml NEB Q4HP PRN PRN Reason: Shortness Of Breath Aspirin (Aspirin 81 Mg Tab.Chew) 81 mg PO HS [facility] Last Admin: 04/03/22 21:21 Dose: 81 mg Budesonide (Budesonide 0.5 Mg/2 Ml Ampul.Neb) 0.5 mg NEB Q12 [facility] Last Admin: 04/03/22 21:25 Dose: 0.5 mg Citalopram Hydrobromide (Citalopram 20 Mg Tablet) 20 mg PO DAILY [facility] Last Admin: 04/03/22 08:48 Dose: 20 mg Daptomycin (Daptomycin 500 Mg Vial) 500 mg IV Q48H [facility]; Protocol Last Admin: 04/03/22 14:31 Dose: 500 mg Docusate Sodium (Docusate Sodium 100 Mg Capsule) 100 mg PO BID [facility] Last Admin: 04/03/22 21:20 Dose: Not Given Heparin Sodium (Porcine) (Heparin 5,000 Unit/Ml Vial) 5,000 unit SQ Q12 [facility] Last Admin: 04/03/22 21:18 Dose: 5,000 unit Heparin Sodium (Porcine) (Heparin Flush 10 Units/Ml 5 Ml Syringe) 2 ml IV Q12 [facility] Last Admin: 04/03/22 19:22 Dose: 2 ml Potassium Chloride 40 meq/ (Dextrose) 520 mls @ 130 mls/hr IV UD PRN PRN Reason: Potassium < 3 Magnesium Sulfate (Magnesium Sulfate) 2 gm in 50 mls @ 50 mls/hr IV UD PRN PRN Reason: Magnesium </= 1.6 Last Infusion: 04/03/22 17:45 Dose: Infused Labetalol HCl (Labetalol 5 Mg/Ml Ml) 0 mg IV Q2HP PRN PRN Reason: Hypertension Last Admin: 04/04/22 07:07 Dose: 5 mg Lactulose (Lactulose 20 Gm/30 Ml Oral.Solange) 20 gm PO DAILYP PRN PRN Reason: Constipation Ondansetron HCl (Ondansetron 4 Mg/2 Ml Vial) 4 mg IV Q4HP PRN PRN Reason: Nausea And Vomiting Polyethylene Glycol (Polyethylene Glycol 3350 17 Gm Packet) 17 gm PO DAILYP PRN PRN Reason: Constipation Potassium Chloride (Potassium Chloride 20 Meq Tablet) 40 meq PO UD PRN PRN Reason: Potssium is 3-3.5 Potassium Chloride (Potassium Chloride 20 Meq Tablet) 40 meq PO UD PRN PRN Reason: Potassium < 3 Senna (Sennosides 1 Tablet) 2 tab PO DAILYP PRN PRN Reason: Constipation Sodium Chloride (0.9 % Sodium Chloride 10 Ml Syringe) 10 ml IV Q8 [facility] Last Admin: 04/04/22 05:47 Dose: 10 ml Sodium Chloride (0.9 % Sodium Chloride 10 Ml Syringe) 10 ml IV Q12 [facility] Last Admin: 04/03/22 19:23 Dose: 10 ml Tramadol HCl (Tramadol 50 Mg Tablet) 50 mg PO TIDP PRN PRN Reason: Pain A/P Narrative A/P Narrative: A: *JORGE on CKD IV: 2/2 poor oral intake and volume depletion from diuretics + ARB + meloxicam -improved with IVF *Hyperkalemia: 2/2 above, possibly component of daptomycin but more likely multifactorial from above -improved *Encephalopathy(drowsy/forgetful): 2/2 above vs Uremia. better today *Anemia, chronic: *HTN:soft on admit, now high *COPD(not on home O2): cont home IH's, monitor *Depression/anxiety: cont ssri, monitor *s/p right knee revision d/t infection: on daptomycin outpt *Obese: bmi 43 P: -IVF's d/c -kayexalate yesterday -now bp up start BB and prn IV meds -hold torsemide -d/c home losartan, may switch to norvasc -Monitor UOP, renal function, i/o -f/u chemistry/potassium, h&h - -PT/OT -ppx: Heparin Plan of Treatment: As above Time Spent With Patient Time: Total time spent is greater than 50% in coordination of care (as documented) at patient's floor/unit and/or counseling patient: Subsequent: Total time with patient: 35 - 49 minutes QUALITY VTE Deep Vein Thrombosis/Pulmonary Embolism Present on Admission: No
[2022-04-04] MEDS ORDERED: METOPROLOL SUCCINATE 50 MG TAB.XL.24H PO SCH (09:00)
[2022-04-04] MEDS ORDERED: amLODIPine 5 MG TABLET PO SCH (09:00)
[2022-04-04] MEDS: DOCUSATE SODIUM 100 MG CAPSULE PO SCH (09:23)
[2022-04-04] MEDS: HEPARIN 5,000 UNIT/ML VIAL SQ SCH (09:23)
[2022-04-04] MEDS: CITALOPRAM 20 MG TABLET PO SCH (09:23)
--- NOTE | 2022-04-04 10:51 | Discharge Summary ---
Discharge Provider Provider IMPORTANT FOLLOW-UP INFORMATION FOR PCP: Patient information: Note initiated : 04/04/22 at 10:48 am Service Date, if different from initiated Date: [] Patient: Corin Bryant 71 y/o F admitted on 04/03/22 for Covid-Hyperkalemia,Encephalopathy,JORGE. Chief Complaint: [] Date of admission: 04/03/22 00:31 Discharge date: 04/04/22 Primary care physician: Destiny Sarabia Consults: 04/02/22 Consult to Physician [CONS] Stat Comment: Consulting Provider: Ascencion Lawson Reason For Exam: Physician to Consult Consult to Physician [CONS] Stat Comment: Consulting Provider: Ian Cisse Reason For Exam: Physician to Consult COURSE Hospital Course Hospital course: History of present illness: Ms. Bryant is a 71 year old F Patient presents to the ED sent in because she had abnormal labs. The labs were routine because she was on IV daptomycin for a knee infection. Patient had a revision of her right knee a week ago by Dr. Marcus at [place]. She was sent home on IV daptomycin infusions. Wound cultures that she showed grew MSSA. The only other new medications she started recently was torsemide several months ago when she started seeing Dr. Chowdhury for chronic kidney disease. She states that since she got out of the hospital she has had her good and bad days. She says since she has been out of the hospital she feels has not been drinking as much fluid as usual. She does have history of lower extremity edema which is improved since starting on the torsemide. She is found to have a creatinine of 2.9 and a potassium of 6.0. She received insulin and glucose in the ED. As well as calcium gluconate. She is also received IV fluids. Potassium did come down to 5.6. Patient also takes losartan. 04/03 Patient seems groggy this morning. Does awaken enough to answer questions. will hold gabapentin. Hemoglobin mid eights. Potassium still elevated but improving slowly. 5.6. Creatinine 2.5. Patient does report episode of diarrhea with the Kayexalate. 04/04 Patient seems to be feeling a bit better today. More alert and awake. Mentation more clear. She does not remember extremity from yesterday. A: *JORGE on CKD IV: 03/20 poor oral intake and volume depletion from diuretics + ARB + meloxicam (?was on) *Hyperkalemia: 2/2 above, possibly component of daptomycin but more likely multifactorial from above *Encephalopathy(drowsy/forgetful): 2/2 above vs Uremia. better today *Anemia, chronic: *HTN:soft on admit, now high *COPD(not on home O2): cont home IH's, monitor *Depression/anxiety: cont ssri, monitor *s/p right knee revision d/t infection: on daptomycin outpt *Obese: bmi 43 P: -d/c home losartan, switch to norvasc -Patient to monitor blood pressure twice daily, keep log and bring to PCP -f/u bmp Discharge diagnosis: Acute on chronic kidney disease hyperkalemia Encephalopathy Secondary discharge diagnosis: Chronic anemia hypertension COPD depression anxiety right knee revision on daptomycin obesity Time Spent with Patient Time attestation: Total time spent providing and/or coordinating discharge services: Time spent: Greater than 30 minutes EXAM Constitutional Vitals: Temp Pulse Resp BP Pulse Ox O2 Del Method 97.9 F 100 H 16 162/87 95 Room Air 04/04/22 07:02 04/04/22 04:28 04/04/22 07:02 04/04/22 07:02 04/04/22 07:02 04/04/22 07:02 Discharge Data Data Completed and Pending Labs on day of discharge: Labs from last 24 hours 04/04/22 04/04/22 04/04/22 05:20 05:20 05:20 ESR 61 H Sodium Potassium Chloride Carbon Dioxide Anion Gap BUN Creatinine GFR Calculation Glucose Uric Acid Calcium Phosphorus Magnesium Total Bilirubin Direct Bilirubin GGT AST ALT Alkaline Phosphatase Lactate Dehydrogenase Total Creatine Kinase 31 Total Protein Albumin Globulin Albumin/Globulin Ratio Triglycerides Urine Color Urine Appearance Urine pH Ur Specific Carleton Urine Protein Urine Glucose (UA) Urine Ketones Urine Occult Blood Urine Nitrate Urine Bilirubin Urine Urobilinogen Ur Leukocyte Esterase Urine RBC Urine WBC Ur Squamous Epith Cells Urine Bacteria Hyaline Casts Ur Culture Indicated? Urine Eosinophils Urine Osmolality Ur Random Creatinine Ur Random Sodium Ur Random Potassium Ur Random Chloride Complement C3 131.6 Complement C4 24.5 04/04/22 04/03/22 04/03/22 05:20 09:40 09:40 ESR Sodium 141 Potassium 4.5 Chloride 108 Carbon Dioxide 24 Anion Gap 9.0 BUN 47 H Creatinine 1.9 H GFR Calculation 26 Glucose 86 Uric Acid 8.3 H Calcium 8.6 Phosphorus 3.8 Magnesium 1.9 Total Bilirubin 0.2 Direct Bilirubin < 0.2 GGT 17 AST 12 ALT 10 Alkaline Phosphatase 115 Lactate Dehydrogenase 158 Total Creatine Kinase Total Protein 6.0 Albumin 2.9 L Globulin 3.1 Albumin/Globulin Ratio 0.9 L Triglycerides 143 Urine Color Lt. yellow Urine Appearance Sl cloudy A Urine pH 5.5 Ur Specific [place] 1.010 Urine Protein Negative Urine Glucose (UA) Negative Urine Ketones Negative Urine Occult Blood Trace-intact A Urine Nitrate Positive A Urine Bilirubin Negative Urine Urobilinogen Normal Ur Leukocyte Esterase Trace A Urine RBC 1 Urine WBC 71 H Ur Squamous Epith Cells 0 Urine Bacteria Many A Hyaline Casts 4 H Ur Culture Indicated? yes Urine Eosinophils <1% A Urine Osmolality Ur Random Creatinine Ur Random Sodium 57 Ur Random Potassium Ur Random Chloride Complement C3 Complement C4 04/03/22 09:40 ESR Sodium Potassium Chloride Carbon Dioxide Anion Gap BUN Creatinine GFR Calculation Glucose Uric Acid Calcium Phosphorus Magnesium Total Bilirubin Direct Bilirubin GGT AST ALT Alkaline Phosphatase Lactate Dehydrogenase Total Creatine Kinase Total Protein Albumin Globulin Albumin/Globulin Ratio Triglycerides Urine Color Urine Appearance Urine pH Ur Specific [place] Urine Protein Urine Glucose (UA) Urine Ketones Urine Occult Blood Urine Nitrate Urine Bilirubin Urine Urobilinogen Ur Leukocyte Esterase Urine RBC Urine WBC Ur Squamous Epith Cells Urine Bacteria Hyaline Casts Ur Culture Indicated? Urine Eosinophils Urine Osmolality 345 Ur Random Creatinine 58.3 Ur Random Sodium Ur Random Potassium 24.0 Ur Random Chloride 43 L Complement C3 Complement C4 Discharge Plan Patient/Caregiver Discharge Instructions Activity Restrictions/Additional Instructions: Monitor blood pressure twice daily, keep log and bring to PCP. Prescriptions: New amlodipine [Norvasc] 5 mg tablet 5 mg PO QDAY Qty: 30 0RF Continued metoprolol succinate 50 mg cappenniele,ER 24hr dose pack 50 mg PO QDAY citalopram 40 mg tablet 20 mg PO QDAY tramadol 50 mg tablet 50 mg PO TIDP PRN (Reason: Pain) albuterol sulfate [ProAir HFA] 90 mcg/actuation HFA aerosol inhaler 2 puff inhalation .q4-6h PRN (Reason: cough, shortness of breath, wheezing) Qty: 8.5 0RF Rx Instructions: administer with spacer [id number] [Trelegy Ellipta] 100-62.5-25 mcg blister with device 1 inh inhalation QDAY 0RF albuterol sulfate 90 mcg/actuation HFA aerosol inhaler 2 puff inhalation Q6H PRN (Reason: shortness of breath or wheezing) Qty: 8.5 0RF cetirizine [Zyrtec] 10 mg Tablet 10 mg PO QDAY hydrocodone-acetaminophen 10-325 mg Tablet 1 - 2 tab PO Q4-6HP PRN (Reason: Pain) gabapentin 300 mg capsule 300 mg PO QAM aspirin 81 mg Tablet 81 mg PO QHS daptomycin 425 mg IV 3XW Rx Instructions: Every other day. Dose due at 1600, 04/03/22. Changed torsemide 20 mg tablet 20 mg PO QDAY Qty: 1 0RF Discontinued losartan 50 mg tablet 50 mg PO QDAY Other Ambulatory Orders: Basic Metabolic Panel (Routine) Timeframe: 3 Days Facility: [facility] - Location: Laboratory Ordered By: Ascencion Lawson Follow Up Plan Follow up with: Destiny Sarabia MD [Primary Care Provider] - Patient Disposition: Home, Self-Care Plan of Treatment: As above Prognosis: Fair Overall status at discharge: patient is progressing back to baseline Discharge Orders: Discharge Order (Routine); Ordered 04/04/22 Ordered By: Ascencion Lawson QUALITY VTE Deep Vein Thrombosis/Pulmonary Embolism Present on Admission: No
[2022-04-04] MEDS: BUDESONIDE 0.5 MG/2 ML AMPUL.NEB NEB SCH (11:02)
[2022-04-05] MEDS ORDERED: methylPREDNISolone 1 PACKET TABLET PO SCH (09:00)
== END 2022-04-04 15:40 | disposition home health service (06) | DRG 682 ==
LOC: ED 15:48 → ICU 04-03 00:31 → MEDSUR 04-03 11:49
PROVIDERS: ADMIT Internal Medicine; ATTEND Internal Medicine

== ENCOUNTER 2022-04-18 22:13 | Inpatient (IN) ==
[2022-04-18] MEDS ORDERED: CALCIUM GLUCONATE 4.65 MEQ in DEXTROSE 5% IN WATER 50 ML IV ONE (22:34)
[2022-04-18] MEDS ORDERED: FUROSEMIDE 40 MG/4 ML VIAL IV ONE (22:34)
[2022-04-18] MEDS ORDERED: LACTATED RINGERS 500 ML IV ONE (22:40)
--- NOTE | 2022-04-18 22:48 | Emergency Department Note ---
HPI General Chief complaint: Recheck/Abnormal Lab/Rx Stated complaint: High K+ Time Seen by Provider: 04/18/22 22:17 Source: patient Mode of arrival: wheelchair Limitations: no limitations History of Present Illness HPI Narrative: Narrative: Patient presents the ED due to elevated potassium level. Patient states that her home health came out today and they checked labs and said that her potassium was 7.2 and advised to go to the ED right away. Patient denies any heart palpitation, cardiac chest pain, pain rating to her left arm or neck, shortness of breath, muscle spasms. Patient denies any other alleviating or aggravating factors. Patient reports that her potassium does go high from time to time. Related Data Home Medications Medication Instructions Recorded Confirmed metoprolol succinate 50 mg capsule 50 mg PO QDAY 08/24/18 04/03/22 sprinkle, ext. release 24 hr citalopram 40 mg tablet 20 mg PO QDAY 11/11/21 04/03/22 tramadol 50 mg tablet 50 mg PO TIDP PRN Pain 11/11/21 04/03/22 aspirin 81 mg tablet 81 mg PO QHS 04/03/22 04/03/22 cetirizine 10 mg tablet (Zyrtec) 10 mg PO QDAY 04/03/22 04/03/22 daptomycin 425 mg IV 3XW 04/03/22 04/03/22 gabapentin 300 mg capsule 300 mg PO QAM 04/03/22 04/03/22 hydrocodone 10 mg-acetaminophen 1 - 2 tab PO Q4-6HP PRN Pain 04/03/22 04/03/22 325 mg tablet Previous Rx's Medication Instructions Recorded albuterol sulfate 90 mcg/actuation 2 puff inhalation Q6H PRN 12/11/21 aerosol inhaler shortness of breath or wheezing #8.5 grams amlodipine 5 mg tablet (Norvasc) 5 mg PO QDAY #30 tabs 04/04/22 torsemide 20 mg tablet 20 mg PO QDAY #1 tab 04/04/22 Allergies Allergy/AdvReac Type Severity Reaction Status Date / Time Sulfa (Sulfonamide Allergy Severe ANAPHALAXIS Verified 04/18/22 22:23 Antibiotics) [SULFA (SULFONAMIDE ANTIBIOTICS)] latex [LATEX] Allergy Mild SWELLING/RE Verified 04/18/22 22:23 DNESS Cortisone Allergy Unknown "SICK" Verified 04/18/22 22:23 imiquimod Allergy Unknown Unknown Verified 04/18/22 22:23 sulfamethoxazole Allergy Unknown Unknown Verified 04/18/22 22:23 [From ] trimethoprim [From ] Allergy Unknown Unknown Verified 04/18/22 22:23 Carbonic Anhydrase Inhibitors AdvReac Unknown advise not Verified 04/18/22 22:23 to take due to r/o cdiff iv contrast Allergy Mild Hives Uncoded 01/17/22 13:55 Review of Systems ROS ROS Narrative: Narrative: All systems ED: reviewed and negative except as stated. [facility] Narrative Patient History Narrative: Narrative: Medical/Surgical/Family History All Active Problems (Updated 04/19/22 @ 06:57 by Lucien Jeffries DO) Tobacco use (Chronic) Arthritis (Chronic) Osteoarthritis (Chronic) Joint pain (Chronic) Depression (Chronic) Hypertension, essential (Chronic) Hyperlipidemia (Chronic) Recurrent Clostridium difficile diarrhea (Chronic) Stomach ache (Chronic) Ocular migraine (Chronic) Dizziness (Chronic) Aortic aneurysm (Chronic) Abnormal liver function test (Chronic) Paronychia (Acute) COPD (chronic obstructive pulmonary disease) (Chronic) Osteoarthrosis multiple sites, not specified as generalized (Chronic) Anxiety (Chronic) Pyelonephritis (Chronic) Myalgia (Chronic) Dysuria (Chronic) Basal cell carcinoma in situ of skin (Chronic) Knee pain, right (Chronic) Lumbar back pain (Chronic) Carpal tunnel syndrome, right upper limb (Chronic) Vesicular eczema of hands and feet (Chronic) Incontinence of feces with fecal urgency (Chronic) Dyspnea (Chronic) Abdominal pain, epigastric (Chronic) Bilateral thumb pain (Chronic) Nausea (Chronic) Tremor, unspecified (Chronic) Generalized headaches (Chronic) Recurrent acute sinusitis (Chronic) Mixed incontinence urge and stress (Chronic) Leg neuralgia (Chronic) Chronic venous insufficiency (Chronic) Clostridium difficile colitis (Chronic) Obesity (Chronic) Hypersomnia (Chronic) Nocturnal hypoxia (Chronic) Leg pain, right (Acute) Cellulitis of right leg (Acute) History of arthroplasty of right knee (Acute) Acute exacerbation of chronic obstructive airways disease (Acute) Sinusitis, acute (Acute) Headache (Acute) Tinnitus (Acute) COVID-19 (Acute) Hypoxia (Acute) Acute exacerbation of chronic obstructive pulmonary disease (Acute) Acute kidney injury (Acute) Acute hyperkalemia (Acute) Allergic drug rash due to non-narcotic analgesic (Acute) Acute renal failure superimposed on chronic kidney disease (Acute) Infection of total knee replacement (Acute) Acute hyperkalemia (Acute) Leukocytosis (Acute) Medical History Abdominal pain, epigastric Abnormal liver function test Anxiety Aortic aneurysm Arthritis 2006 Basal cell carcinoma in situ of skin Shoulder Bilateral thumb pain Carpal tunnel syndrome, right upper limb Chronic venous insufficiency Clostridium difficile colitis COPD (chronic obstructive pulmonary disease) Depression 2006 Dizziness 2015 Dyspnea Dysuria Generalized headaches Headache Hepatitis HIV antibody positive Hyperlipidemia 2006 Hypersomnia Hypertension, essential 2006 Incontinence of feces with fecal urgency Joint pain 2006 Knee pain, right Leg neuralgia Lumbar back pain Mixed incontinence urge and stress Myalgia Nausea Nocturnal hypoxia Obesity Ocular migraine 2015 Osteoarthritis 2006 Osteoarthrosis multiple sites, not specified as generalized Pyelonephritis Recurrent acute sinusitis Recurrent Clostridium difficile diarrhea 2016 Sinusitis, acute Stomach ache 2016 following c-diff Tinnitus Tobacco use Tremor, unspecified Vesicular eczema of hands and feet Surgical History H/O colonoscopy (01/17/16) History of carpal tunnel surgery (~2012) Left History of total knee arthroplasty (~2012) Left S/P hip replacement (~2014) Left S/P knee replacement 2014 Family History Mother Arthritis Alzheimer's disease Stroke Heart disease Diabetes Father Arthritis Liver cancer Stroke Heart disease Sister Arthritis Alzheimer's disease Hypertension, essential Thyroid disease Social History Smoking Status: Current every day smoker Alcohol Intake Frequency: does not drink Substance Use: marijuana Exam Narrative Narrative: Narrative: General Limitations: no limitations General appearance: Absent in distress ENT ENT: Present normal oropharynx and mucous membranes moist Chest Chest: Present normal inspection; Absent tenderness Respiratory Respiratory: Present normal lung sounds bilaterally; Absent respiratory distress Cardiovascular Cardiovascular: Present regular rate and normal rhythm Extremities Extremities: Present normal inspection and normal capillary refill Neurological Neurological: Present alert and oriented X3 Psychiatric Psychiatric: Present normal affect and normal mood Skin Skin: Present warm (WNL) and intact Course Course Course Narrative: Patient was evaluated after being sent over to the ED for complaints of elevated potassium. Patient's initial potassium was 6.9. Her renal function was near baseline there was no signs of acute kidney injury. Patient was bolused some IV fluids given IV insulin as well as IV dextrose bolus followed by dextrose drip. She also received Lasix calcium gluconate. Patient potassium initially trended down to 5.9. Then when it was later repeated increased up to 6.2. Patient blood sugar had dropped as low as 84 but stabilized at 90. Another round of IV insulin with dextrose bolus with continued dextrose drip was repeated. Unfortunately had no beds overnight to admit to the hospitalist but it seems that we may have some beds available later this morning so we will keep patient in the ED in hopes of admitting her to the hospitalist service. Patient will need her dose of daptomycin later today at 1600. Plan of care was discussed with patient and she expressed verbal understanding. Case will be signed out to Dr. Bonilla pending conversation with hospitalist later this morning for admission. Patient states that she has been getting daptomycin every 48 hours. Reevaluation(s) Reevaluation #1: Patient remains hemodynamically stable. No new complaints at this time. Time: 23:30 Vital Signs Vital signs: Vital Signs Temperature 97.7 F 04/18/22 22:14 Pulse Rate 90 04/18/22 22:14 Respiratory Rate 24 H 04/18/22 22:14 Blood Pressure 122/75 04/18/22 22:14 Pulse Oximetry (%) 95 04/18/22 22:14 Oxygen Delivery Method Room Air 04/18/22 22:14 Temperature 97.7 F 04/18/22 22:14 Pulse Rate 82 04/19/22 04:01 Respiratory Rate 15 04/19/22 06:31 Blood Pressure 112/88 04/19/22 06:31 Pulse Oximetry (%) 90 04/19/22 04:01 Oxygen Delivery Method Room Air 04/18/22 22:14 [facility] Narrative Medical decision making narrative: Narrative: Differential Diagnosis Differential Diagnosis: Hyperkalemia Medical Records Medical records reviewed: Yes I reviewed the patient's medical records. Lab Data Lab results reviewed: Yes I reviewed the patient's lab results. 04/18/22 22:35 Labs: Lab Results 04/18/22 04/18/22 04/19/22 Range/Units 22:35 23:59 00:00 WBC 20.9 H (4.5-11.0) K/mcL RBC 3.29 L (3.59-5.38) M/mcL Hgb 9.4 L (11.2-15.7) g/dL Hct 30.9 L (34.1-44.9) % POC Hct (36-48) MCV 93.9 (80.0-100.0) fL MCH 28.6 (26.0-34.0) pg MCHC 30.4 L (31.0-36.0) g/dL RDW 14.6 H (11.5-14.5) % Plt Count 516 H (140-440) K/mcL MPV 10.2 (8.8-12.5) fL Immature Gran % (Auto) 3.3 H (0.0-0.5) % Neut % (Auto) 82.9 H (38.0-78.0) % Lymph % (Auto) 7.9 L (15.5-49.0) % [place] % (Auto) 5.1 (1.0-12.0) % Eos % (Auto) 0.7 (0.0-7.0) % Baso % (Auto) 0.1 (0.0-2.0) % Lymph # (Auto) 1.66 (1.50-4.80) K/mcL [place] # (Auto) 1.07 H (0.10-0.90) K/mcL Eos # (Auto) 0.15 (0.00-0.70) K/mcL Baso # (Auto) 0.02 (0.00-0.30) K/mcL Immature Gran # 0.69 H (0.00-0.05) K/mcl Absolute Neutrophils 17.33 H (1.80-8.00) K/mcL POC Sodium (133-145) Sodium 133 (133-145) mmol/L POC Potassium (3.3-5.1) Potassium 6.6 H* (3.3-5.1) mmol/L POC Chloride (96-108) Chloride 98 (96-108) mmol/L Carbon Dioxide 26 (22-30) mmol/L POC Total CO2 (22-30) Anion Gap 9.0 (8.0-16.0) POC BUN (6-20) BUN 59 H (8-23) mg/dL Creatinine 1.9 H (0.6-1.1) mg/dL POC Creatinine (0.6-1.2) GFR Calculation 26 Glucose 90 (70-105) mg/dL POC Glucose (70-105) Calcium 9.3 (8.6-10.4) mg/dL POC WB Ioniz Calcium (1.16-1.32) Total Bilirubin < 0.2 (0.1-1.0) mg/dL AST 24 (<32) U/L ALT 41 H (<40) U/L Alkaline Phosphatase 201 H (39-117) U/L Total Protein 7.2 (5.9-8.4) gm/dL Albumin 3.1 L (3.2-5.2) gm/dL Globulin 4.1 H (2.2-3.7) gm/dL Albumin/Globulin Ratio 0.8 L (1.0-2.3) Procalcitonin 0.21 H (<0.10) ng/mL 04/19/22 04/19/22 04/19/22 Range/Units 00:37 03:46 06:34 WBC (4.5-11.0) K/mcL RBC (3.59-5.38) M/mcL Hgb (11.2-15.7) g/dL Hct (34.1-44.9) % POC Hct 28.0 L 26.0 L 31.0 L (36-48) MCV (80.0-100.0) fL MCH (26.0-34.0) pg MCHC (31.0-36.0) g/dL RDW (11.5-14.5) % Plt Count (140-440) K/mcL MPV (8.8-12.5) fL Immature Gran % (Auto) (0.0-0.5) % Neut % (Auto) (38.0-78.0) % Lymph % (Auto) (15.5-49.0) % [place] % (Auto) (1.0-12.0) % Eos % (Auto) (0.0-7.0) % Baso % (Auto) (0.0-2.0) % Lymph # (Auto) (1.50-4.80) K/mcL [place] # (Auto) (0.10-0.90) K/mcL Eos # (Auto) (0.00-0.70) K/mcL Baso # (Auto) (0.00-0.30) K/mcL Immature Gran # (0.00-0.05) K/mcl Absolute Neutrophils (1.80-8.00) K/mcL POC Sodium 133 134 134 (133-145) Sodium (133-145) mmol/L POC Potassium 6.9 H* 5.9 H* 6.3 H* (3.3-5.1) Potassium (3.3-5.1) mmol/L POC Chloride 101 103 100 (96-108) Chloride (96-108) mmol/L Carbon Dioxide (22-30) mmol/L POC Total CO2 29.0 28.0 29.0 (22-30) Anion Gap (8.0-16.0) POC BUN 56 H 55 H 56 H (6-20) BUN (8-23) mg/dL Creatinine (0.6-1.1) mg/dL POC Creatinine 2.4 H 2.2 H 2.1 H (0.6-1.2) GFR Calculation Glucose (70-105) mg/dL POC Glucose 96 72 91 (70-105) Calcium (8.6-10.4) mg/dL POC WB Ioniz Calcium 1.21 1.22 1.25 (1.16-1.32) Total Bilirubin (0.1-1.0) mg/dL AST (<32) U/L ALT (<40) U/L Alkaline Phosphatase (39-117) U/L Total Protein (5.9-8.4) gm/dL Albumin (3.2-5.2) gm/dL Globulin (2.2-3.7) gm/dL Albumin/Globulin Ratio (1.0-2.3) Procalcitonin (<0.10) ng/mL EKG Data EKG #1: EKG attestation: Yes I reviewed and interpreted this EKG. EKG shows normal: sinus rhythm Rate: normal Rhythm: NSR [place]/QRS: RBBB Heart block present: None ST segment elevation in: None ST segment depression in: None QTc: normal QRS morphology: Present normal When compared to previous EKG there are: no significant changes Interpretation: no acute changes Core Measures AMI Core Measures Followed: Yes Discharge Plan Patient/Caregiver Discharge Instructions Pt seen by PRODUCTION MACHINE TENDER/PA only: No Clinical Impression: Acute hyperkalemia, Leukocytosis Patient Disposition: Still a Patient Condition: Fair Follow up with: Destiny Sarabia MD [Primary Care Provider] - Prescriptions: No Action metoprolol succinate 50 mg cap,susan,ER 24hr dose pack 50 mg PO QDAY citalopram 40 mg tablet 20 mg PO QDAY tramadol 50 mg tablet 50 mg PO TIDP PRN (Reason: Pain) [id number] [Trelegy Ellipta] 100-62.5-25 mcg blister with device 1 inh inhalation QDAY 0RF albuterol sulfate 90 mcg/actuation HFA aerosol inhaler 2 puff inhalation Q6H PRN (Reason: shortness of breath or wheezing) Qty: 8.5 0RF cetirizine [Zyrtec] 10 mg Tablet 10 mg PO QDAY hydrocodone-acetaminophen 10-325 mg Tablet 1 - 2 tab PO Q4-6HP PRN (Reason: Pain) gabapentin 300 mg capsule 300 mg PO QAM aspirin 81 mg Tablet 81 mg PO QHS daptomycin 425 mg IV 3XW Rx Instructions: Every other day. Dose due at 1600, 04/03/22. amlodipine [Norvasc] 5 mg tablet 5 mg PO QDAY Qty: 30 0RF torsemide 20 mg tablet 20 mg PO QDAY Qty: 1 0RF
[2022-04-18 23:18] LABS: Basophils # (Auto) 0.02 K/mcL (0.00-0.30); Basophils % (Auto) 0.1 % (0.0-2.0); Eosinophils # (Auto) 0.15 K/mcL (0.00-0.70); Eosinophils % (Auto) 0.7 % (0.0-7.0); Hematocrit 30.9 % (34.1-44.9); Hemoglobin 9.4 g/dL (11.2-15.7); Lymphocytes # (Auto) 1.66 K/mcL (1.50-4.80); Lymphocytes % (Auto) 7.9 % (15.5-49.0); Mean Cell Volume 93.9 fL (80.0-100.0); Mean Corpuscular HGB Conc 30.4 g/dL (31.0-36.0); Mean Platelet Volume 10.2 fL (8.8-12.5); Monocytes # (Auto) 1.07 K/mcL (0.10-0.90); Monocytes % (Auto) 5.1 % (1.0-12.0); Neutrophils % (Auto) 82.9 % (38.0-78.0); Platelet Count 516 K/mcL (140-440); RBC 3.29 M/mcL (3.59-5.38); Red Cell Distribution Width 14.6 % (11.5-14.5); WBC 20.9 K/mcL (4.5-11.0)
[2022-04-19 00:33] LABS: ALT/SGPT 41 U/L (<40); AST/SGOT 24 U/L (<32); Albumin 3.1 gm/dL (3.2-5.2); Albumin/Globulin Ratio 0.8 (1.0-2.3); Alkaline Phosphatase 201 U/L (39-117); Bilirubin,Total < 0.2 mg/dL (0.1-1.0); Blood Urea Nitrogen 59 mg/dL (8-23); Calcium 9.3 mg/dL (8.6-10.4); Carbon Dioxide 26 mmol/L (22-30); Chloride 98 mmol/L (96-108); Globulin 4.1 gm/dL (2.2-3.7); Glomerular Filtration Rate 26; Glucose 90 mg/dL (70-105)
[2022-04-19 00:42] LABS: POC Calcium, Ionized 1.21 (1.16-1.32); POC Creatinine 2.4 (0.6-1.2); POC Potassium 6.9 (3.3-5.1)
[2022-04-19] MEDS ORDERED: INSULIN REGULAR, HUMAN 1 UNIT/0.01 ML UNIT IV ONE ×2 (00:48→06:39)
[2022-04-19] MEDS ORDERED: DEXTROSE 50% 50 ML SYRINGE IV ONE ×2 (00:53→06:39)
[2022-04-19] MEDS ORDERED: 0.9 % SODIUM CHLORIDE 1,000 ML IV ONE (00:55)
[2022-04-19] MEDS ORDERED: DEXTROSE 10 % IN WATER 1,000 ML IV SCH (01:00)
[2022-04-19 03:51] LABS: POC Calcium, Ionized 1.22 (1.16-1.32); POC Creatinine 2.2 (0.6-1.2); POC Potassium 5.9 (3.3-5.1)
[2022-04-19 06:36] LABS: POC Calcium, Ionized 1.25 (1.16-1.32); POC Creatinine 2.1 (0.6-1.2); POC Potassium 6.3 (3.3-5.1)
[2022-04-19] MEDS ORDERED: 0.9 % SODIUM CHLORIDE 500 ML IV ONE (06:39)
[2022-04-19] MEDS ORDERED: SODIUM POLYSTYRENE SULFONATE 15 GM/60 ML SUSPENSION PO ONE (08:21)
--- NOTE | 2022-04-19 08:28 | Emergency Department Note ---
Course Course Course Narrative: Patient is a 71-year-old female with a complex history who presents to the emergency department due to hyperkalemia. Patient was signed out to me by Dr. Jeffries. Briefly, patient was found to have high potassium outpatient, so was told to come to the emergency department. She continued to have high potassium in the emergency department. Overnight there were no beds available, so that availability was pending. Vital Signs Vital signs: Vital Signs Temperature 97.7 F 04/18/22 22:14 Pulse Rate 90 04/18/22 22:14 Respiratory Rate 24 H 04/18/22 22:14 Blood Pressure 122/75 04/18/22 22:14 Pulse Oximetry (%) 95 04/18/22 22:14 Oxygen Delivery Method Room Air 04/18/22 22:14 Temperature 97.7 F 04/18/22 22:14 Pulse Rate 82 04/19/22 04:01 Respiratory Rate 16 04/19/22 08:44 Blood Pressure 127/81 04/19/22 08:30 Pulse Oximetry (%) 90 04/19/22 04:01 Oxygen Delivery Method Room Air 04/18/22 22:14 [facility] MDM Narrative Medical decision making narrative: Narrative: Patient is a 71-year-old female who presented to the emergency department due to hyperkalemia. I have spoken with the warehouse supervisor who states that there are beds available now. I have spoken to Dr. Yepez who recommends [facility] and t hat he feels the patient can be accepted here. He will see the patient. I have spoken to Dr. Lawson who has agreed to see and evaluate patient for admission. Lab Data 04/18/22 22:35 04/19/22 00:00 Labs: Lab Results 04/18/22 04/18/22 04/19/22 Range/Units 22:35 23:59 00:00 WBC 20.9 H (4.5-11.0) K/mcL RBC 3.29 L (3.59-5.38) M/mcL Hgb 9.4 L (11.2-15.7) g/dL Hct 30.9 L (34.1-44.9) % POC Hct (36-48) MCV 93.9 (80.0-100.0) fL MCH 28.6 (26.0-34.0) pg MCHC 30.4 L (31.0-36.0) g/dL RDW 14.6 H (11.5-14.5) % Plt Count 516 H (140-440) K/mcL MPV 10.2 (8.8-12.5) fL Immature Gran % (Auto) 3.3 H (0.0-0.5) % Neut % (Auto) 82.9 H (38.0-78.0) % Lymph % (Auto) 7.9 L (15.5-49.0) % [place] % (Auto) 5.1 (1.0-12.0) % Eos % (Auto) 0.7 (0.0-7.0) % Baso % (Auto) 0.1 (0.0-2.0) % Lymph # (Auto) 1.66 (1.50-4.80) K/mcL [place] # (Auto) 1.07 H (0.10-0.90) K/mcL Eos # (Auto) 0.15 (0.00-0.70) K/mcL Baso # (Auto) 0.02 (0.00-0.30) K/mcL Immature Gran # 0.69 H (0.00-0.05) K/mcl Absolute Neutrophils 17.33 H (1.80-8.00) K/mcL POC Sodium (133-145) Sodium 133 (133-145) mmol/L POC Potassium (3.3-5.1) Potassium 6.6 H* (3.3-5.1) mmol/L POC Chloride (96-108) Chloride 98 (96-108) mmol/L Carbon Dioxide 26 (22-30) mmol/L POC Total CO2 (22-30) Anion Gap 9.0 (8.0-16.0) POC BUN (6-20) BUN 59 H (8-23) mg/dL Creatinine 1.9 H (0.6-1.1) mg/dL POC Creatinine (0.6-1.2) GFR Calculation 26 Glucose 90 (70-105) mg/dL POC Glucose (70-105) Calcium 9.3 (8.6-10.4) mg/dL POC WB Ioniz Calcium (1.16-1.32) Total Bilirubin < 0.2 (0.1-1.0) mg/dL AST 24 (<32) U/L ALT 41 H (<40) U/L Alkaline Phosphatase 201 H (39-117) U/L Total Protein 7.2 (5.9-8.4) gm/dL Albumin 3.1 L (3.2-5.2) gm/dL Globulin 4.1 H (2.2-3.7) gm/dL Albumin/Globulin Ratio 0.8 L (1.0-2.3) Procalcitonin 0.21 H (<0.10) ng/mL 04/19/22 04/19/22 04/19/22 Range/Units 00:37 03:46 06:34 WBC (4.5-11.0) K/mcL RBC (3.59-5.38) M/mcL Hgb (11.2-15.7) g/dL Hct (34.1-44.9) % POC Hct 28.0 L 26.0 L 31.0 L (36-48) MCV (80.0-100.0) fL MCH (26.0-34.0) pg MCHC (31.0-36.0) g/dL RDW (11.5-14.5) % Plt Count (140-440) K/mcL MPV (8.8-12.5) fL Immature Gran % (Auto) (0.0-0.5) % Neut % (Auto) (38.0-78.0) % Lymph % (Auto) (15.5-49.0) % [place] % (Auto) (1.0-12.0) % Eos % (Auto) (0.0-7.0) % Baso % (Auto) (0.0-2.0) % Lymph # (Auto) (1.50-4.80) K/mcL [place] # (Auto) (0.10-0.90) K/mcL Eos # (Auto) (0.00-0.70) K/mcL Baso # (Auto) (0.00-0.30) K/mcL Immature Gran # (0.00-0.05) K/mcl Absolute Neutrophils (1.80-8.00) K/mcL POC Sodium 133 134 134 (133-145) Sodium (133-145) mmol/L POC Potassium 6.9 H* 5.9 H* 6.3 H* (3.3-5.1) Potassium (3.3-5.1) mmol/L POC Chloride 101 103 100 (96-108) Chloride (96-108) mmol/L Carbon Dioxide (22-30) mmol/L POC Total CO2 29.0 28.0 29.0 (22-30) Anion Gap (8.0-16.0) POC BUN 56 H 55 H 56 H (6-20) BUN (8-23) mg/dL Creatinine (0.6-1.1) mg/dL POC Creatinine 2.4 H 2.2 H 2.1 H (0.6-1.2) GFR Calculation Glucose (70-105) mg/dL POC Glucose 96 72 91 (70-105) Calcium (8.6-10.4) mg/dL POC WB Ioniz Calcium 1.21 1.22 1.25 (1.16-1.32) Total Bilirubin (0.1-1.0) mg/dL AST (<32) U/L ALT (<40) U/L Alkaline Phosphatase (39-117) U/L Total Protein (5.9-8.4) gm/dL Albumin (3.2-5.2) gm/dL Globulin (2.2-3.7) gm/dL Albumin/Globulin Ratio (1.0-2.3) Procalcitonin (<0.10) ng/mL 04/19/22 Range/Units 08:28 WBC (4.5-11.0) K/mcL RBC (3.59-5.38) M/mcL Hgb (11.2-15.7) g/dL Hct (34.1-44.9) % POC Hct 29.0 L (36-48) MCV (80.0-100.0) fL MCH (26.0-34.0) pg MCHC (31.0-36.0) g/dL RDW (11.5-14.5) % Plt Count (140-440) K/mcL MPV (8.8-12.5) fL Immature Gran % (Auto) (0.0-0.5) % Neut % (Auto) (38.0-78.0) % Lymph % (Auto) (15.5-49.0) % [place] % (Auto) (1.0-12.0) % Eos % (Auto) (0.0-7.0) % Baso % (Auto) (0.0-2.0) % Lymph # (Auto) (1.50-4.80) K/mcL [place] # (Auto) (0.10-0.90) K/mcL Eos # (Auto) (0.00-0.70) K/mcL Baso # (Auto) (0.00-0.30) K/mcL Immature Gran # (0.00-0.05) K/mcl Absolute Neutrophils (1.80-8.00) K/mcL POC Sodium 135 (133-145) Sodium (133-145) mmol/L POC Potassium 6.1 H* (3.3-5.1) Potassium (3.3-5.1) mmol/L POC Chloride 101 (96-108) Chloride (96-108) mmol/L Carbon Dioxide (22-30) mmol/L POC Total CO2 27.0 (22-30) Anion Gap (8.0-16.0) POC BUN 54 H (6-20) BUN (8-23) mg/dL Creatinine (0.6-1.1) mg/dL POC Creatinine 2.0 H (0.6-1.2) GFR Calculation Glucose (70-105) mg/dL POC Glucose 90 (70-105) Calcium (8.6-10.4) mg/dL POC WB Ioniz Calcium 1.25 (1.16-1.32) Total Bilirubin (0.1-1.0) mg/dL AST (<32) U/L ALT (<40) U/L Alkaline Phosphatase (39-117) U/L Total Protein (5.9-8.4) gm/dL Albumin (3.2-5.2) gm/dL Globulin (2.2-3.7) gm/dL Albumin/Globulin Ratio (1.0-2.3) Procalcitonin (<0.10) ng/mL Discharge Plan Patient/Caregiver Discharge Instructions Pt seen by SMALL EQUIPMENT OPERATOR/PA only: No Clinical Impression: Acute hyperkalemia, Leukocytosis Patient Disposition: Xfer As Inpt ([facility]) Condition: Fair Follow up with: Destiny Sarabia MD [Primary Care Provider] - Prescriptions: No Action metoprolol succinate 50 mg cap,susan,ER 24hr dose pack 50 mg PO QDAY citalopram 40 mg tablet 20 mg PO QDAY tramadol 50 mg tablet 50 mg PO TIDP PRN (Reason: Pain) [id number] [Trelegy Ellipta] 100-62.5-25 mcg blister with device 1 inh inhalation QDAY 0RF albuterol sulfate 90 mcg/actuation HFA aerosol inhaler 2 puff inhalation Q6H PRN (Reason: shortness of breath or wheezing) Qty: 8.5 0RF cetirizine [Zyrtec] 10 mg Tablet 10 mg PO QDAY hydrocodone-acetaminophen 10-325 mg Tablet 1 - 2 tab PO Q4-6HP PRN (Reason: Pain) gabapentin 300 mg capsule 300 mg PO QAM aspirin 81 mg Tablet 81 mg PO QHS daptomycin 425 mg IV 3XW Rx Instructions: Every other day. Dose due at 1600, 04/03/22. amlodipine [Norvasc] 5 mg tablet 5 mg PO QDAY Qty: 30 0RF torsemide 20 mg tablet 20 mg PO QDAY Qty: 1 0RF
[2022-04-19 08:33] LABS: POC Calcium, Ionized 1.25 (1.16-1.32); POC Potassium 6.1 (3.3-5.1)
--- NOTE | 2022-04-19 08:42 | Nephrology Consult Note ---
HPI Date of Consult Consult Date: 04/19/22 Requesting physician: Ernie Bundy Primary Care Provider: Destiny Sarabia Consult Narrative Chief complaint: Hyperkalemia Reason for consult: Hyperkalemia History of present illness: Corin Bryant is a 71-year-old female with chronic kidney disease stage 3-4 who was sent to the emergency department for hyperkalemia. Patient has been receiving IV daptomycin for a knee infection. She was recently admitted for hyperkalemia at [facility] (04/02/22 to 04/04/22). It was attributed to losartan and meloxicam which were discontinued. Nephrology consultation was requested for hyperkalemia. cc:: CC: Constitutional Constitutional: Present weakness; Absent fever(s) EENT Nose, mouth and throat: Absent nasal congestion or sore throat Cardiovascular Cardiovascular: Absent chest pain or palpatations Respiratory Respiratory: Absent dyspnea or wheezing Gastrointestinal Gastrointestinal: Absent nausea or vomiting Integumentary Integumentary: Absent erythema or rash Neurological Neurological: Present weakness; Absent confusion Psychiatric Psychiatric: Absent anxiety or panic attacks Hematologic/Lymphatic Hematologic/Lymphatic: Absent easy bleeding or easy bruising Allergic/Immunologic Allergic/Immunologic: Absent tongue swelling or uticaria PFSH PFSH All Active Problems (Updated 04/19/22 @ 08:40 by Ella Martinez MD) CKD (chronic kidney disease) stage 4, GFR 15-29 ml/min (Chronic) Tobacco use (Chronic) Arthritis (Chronic) Osteoarthritis (Chronic) Joint pain (Chronic) Depression (Chronic) Hypertension, essential (Chronic) Hyperlipidemia (Chronic) Recurrent Clostridium difficile diarrhea (Chronic) Stomach ache (Chronic) Ocular migraine (Chronic) Dizziness (Chronic) Aortic aneurysm (Chronic) Abnormal liver function test (Chronic) Paronychia (Acute) COPD (chronic obstructive pulmonary disease) (Chronic) Osteoarthrosis multiple sites, not specified as generalized (Chronic) Anxiety (Chronic) Pyelonephritis (Chronic) Myalgia (Chronic) Dysuria (Chronic) Basal cell carcinoma in situ of skin (Chronic) Knee pain, right (Chronic) Lumbar back pain (Chronic) Carpal tunnel syndrome, right upper limb (Chronic) Vesicular eczema of hands and feet (Chronic) Incontinence of feces with fecal urgency (Chronic) Dyspnea (Chronic) Abdominal pain, epigastric (Chronic) Bilateral thumb pain (Chronic) Nausea (Chronic) Tremor, unspecified (Chronic) Generalized headaches (Chronic) Recurrent acute sinusitis (Chronic) Mixed incontinence urge and stress (Chronic) Leg neuralgia (Chronic) Chronic venous insufficiency (Chronic) Clostridium difficile colitis (Chronic) Obesity (Chronic) Hypersomnia (Chronic) Nocturnal hypoxia (Chronic) Leg pain, right (Acute) Cellulitis of right leg (Acute) History of arthroplasty of right knee (Acute) Acute exacerbation of chronic obstructive airways disease (Acute) Sinusitis, acute (Acute) Headache (Acute) Tinnitus (Acute) COVID-19 (Acute) Hypoxia (Acute) Acute exacerbation of chronic obstructive pulmonary disease (Acute) Acute kidney injury (Acute) Acute hyperkalemia (Acute) Allergic drug rash due to non-narcotic analgesic (Acute) Acute renal failure superimposed on chronic kidney disease (Acute) Infection of total knee replacement (Acute) Acute hyperkalemia (Acute) Leukocytosis (Acute) Medical History Abdominal pain, epigastric Abnormal liver function test Anxiety Aortic aneurysm Arthritis 2006 Basal cell carcinoma in situ of skin Shoulder Bilateral thumb pain Carpal tunnel syndrome, right upper limb Chronic venous insufficiency Clostridium difficile colitis COPD (chronic obstructive pulmonary disease) Depression 2006 Dizziness 2015 Dyspnea Dysuria Generalized headaches Headache Hepatitis HIV antibody positive Hyperlipidemia 2006 Hypersomnia Hypertension, essential 2006 Incontinence of feces with fecal urgency Joint pain 2006 Knee pain, right Leg neuralgia Lumbar back pain Mixed incontinence urge and stress Myalgia Nausea Nocturnal hypoxia Obesity Ocular migraine 2015 Osteoarthritis 2006 Osteoarthrosis multiple sites, not specified as generalized Pyelonephritis Recurrent acute sinusitis Recurrent Clostridium difficile diarrhea 2016 Sinusitis, acute Stomach ache 2016 following c-diff Tinnitus Tobacco use Tremor, unspecified Vesicular eczema of hands and feet Surgical History H/O colonoscopy (01/17/16) History of carpal tunnel surgery (~2012) Left History of total knee arthroplasty (~2012) Left S/P hip replacement (~2014) Left S/P knee replacement 2015 Family History Mother Arthritis Alzheimer's disease Stroke Heart disease Diabetes Father Arthritis Liver cancer Stroke Heart disease Sister Arthritis Alzheimer's disease Hypertension, essential Thyroid disease Social History marital status: occupational status: employed occupation: [employer] other: Children-4 smoking status: Current every day smoker tobacco type: cigarettes per day: 5 pa ck-years: 50 alcohol intake frequency: does not drink substance use type: marijuana MEDS/ALLERGIES Home Medications and Allergies Home Medications Medication Instructions Recorded Confirmed Type metoprolol succinate 50 mg capsule 50 mg PO QDAY 08/24/18 04/03/22 History sprinkle, ext. release 24 hr citalopram 40 mg tablet 20 mg PO QDAY 11/11/21 04/03/22 History tramadol 50 mg tablet 50 mg PO TIDP PRN Pain 11/11/21 04/03/22 History albuterol sulfate 90 mcg/actuation 2 puff inhalation Q6H PRN 12/11/21 04/03/22 Rx aerosol inhaler shortness of breath or wheezing #8.5 grams aspirin 81 mg tablet 81 mg PO QHS 04/03/22 04/03/22 History cetirizine 10 mg tablet (Zyrtec) 10 mg PO QDAY 04/03/22 04/03/22 History daptomycin 425 mg IV 3XW 04/03/22 04/03/22 History gabapentin 300 mg capsule 300 mg PO QAM 04/03/22 04/03/22 History hydrocodone 10 mg-acetaminophen 1 - 2 tab PO Q4-6HP PRN Pain 04/03/22 04/03/22 History 325 mg tablet amlodipine 5 mg tablet (Norvasc) 5 mg PO QDAY #30 tabs 04/04/22 Rx torsemide 20 mg tablet 20 mg PO QDAY #1 tab 04/04/22 Rx Allergies Allergy/AdvReac Type Severity Reaction Status Date / Time Sulfa (Sulfonamide Allergy Severe ANAPHALAXIS Verified 04/18/22 22:23 Antibiotics) [SULFA (SULFONAMIDE ANTIBIOTICS)] latex [LATEX] Allergy Mild SWELLING/RE Verified 04/18/22 22:23 DNESS Cortisone Allergy Unknown "SICK" Verified 04/18/22 22:23 imiquimod Allergy Unknown Unknown Verified 04/18/22 22:23 sulfamethoxazole Allergy Unknown Unknown Verified 04/18/22 22:23 [From ] trimethoprim [From ] Allergy Unknown Unknown Verified 04/18/22 22:23 Carbonic Anhydrase Inhibitors AdvReac Unknown advise not Verified 04/18/22 22:23 to take due to r/o cdiff iv contrast Allergy Mild Hives Uncoded 01/17/22 13:55 Physical Examination Vital Signs Vital signs: Temp Pulse Resp BP Pulse Ox O2 Del Method 97.7 F 82 15 120/67 90 Room Air 04/18/22 22:14 04/19/22 04:01 04/19/22 07:31 04/19/22 07:31 04/19/22 04:01 04/18/22 22:14 General Appearance General appearance: well-developed, well-nourished, appears started age and obese EENT EENT: mucous membranes moist Neck Neck: no JVD Respiratory Respiratory: clear Cardiovascular Cardiology: no edema, regular rate and regular rhythm Gastrointestinal Gastrointestinal: no tenderness Integumentary Integumentary: warm and dry Neurologic Neurologic: no focal deficit and alert and oriented x3 Psychiatric Psychiatric: mood/affect appropriate and cooperative Results Lab Results 04/18/22 22:35 04/19/22 00:00 Lab results: Most recent lab results Calcium 9.3 mg/dL (8.6-10.4) 04/19/22 00:00 A/P Assessment and plan (1) CKD (chronic kidney disease) stage 4, GFR 15-29 ml/min: Assessment and plan: Corin Bryant is a 71-year-old female with chronic kidney disease stage 3-4 who was sent to the emergency department for hyperkalemia. Patient has been receiving IV daptomycin for a knee infection. She was recently admitted for hyperkalemia at [facility] (04/02/22 to 04/04/22). It was attributed to losartan and meloxicam which were discontinued. Nephrology consultation was requested for hyperkalemia. Chronic kidney disease stage 3-4 with hyperkalemia, possible acute component, present on arrival. There is no recent history of IV contrast administration or NSAID use. Previous work up: Urinalysis on 04/03/22: Yellow, Cloudy, pH 5.5, SG 1.010, protein negative, blood trace-intact, leukocyte esterase trace. CT Abdomen and Pelvis without contrast on 10/13/22: There is mild parenchymal scarring in the upper pole the right kidney with atrophy. Exophytic 1.8 cm cyst is present in the lower pole the right kidney. Left kidney is normal. There is no kidney stone or hydronephrosis. 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 Urine eosinophil on 04/03/22: <1%. Progress: Serum creatinine 1.9 on 04/19/22. Baseline serum creatinine: 1.9 (eGFR 26) on 04/04/22. Urine output: 50 ml reported in the ED. Hyperkalemia. No fluid overload. No uremic symptoms. Recommendations/Plan: Avoid LR which contains potassium. No urgent acute hemodialysis need. Kayexalate 30 g PO x 1. Continue loop diuretics. Avoid BRYAN/ARB and potassium sparing diuretics. Avoid NSAIDs, nephrotoxic medications and IV contrast. Monitor BMP and urine output. Scheduled with Dr. Chowdhury for outpatient nephrology follow up. Status: Chronic Time Spent With Patient Time: Total time spent is greater than 50% in coordination of care (as documented) at patient's floor/unit and/or counseling patient:
[2022-04-19] MEDS ORDERED: 0.9 % SODIUM CHLORIDE 1,000 ML IV SCH ×2 (08:45→10:53)
[2022-04-19] MEDS ORDERED: IPRATROPIUM/ALBUTEROL 3 ML AMPUL.NEB NEB ONE ×2 (10:28→10:35)
[2022-04-19] MEDS ORDERED: 0.9 % SODIUM CHLORIDE 10 ML SYRINGE IV PRN (10:31)
--- NOTE | 2022-04-19 10:39 | Internal Med History&Physical ---
HPI History of Present Illness Patient information: Note initiated : 04/19/22 at 10:29 am Service Date, if different from initiated Date: [] Patient: Corin Bryant a 71 y/o F admitted on 04/19/22 for High K+. Chief Complaint: [] History of present illness: Ms. Bryant is a 71 year old F Patient sent to the emergency room for hyperkalemia which is reported as 7.2. Patient has a history of hyperkalemia and chronic kidney disease stage IV. She was seen in the ED and treated with IV fluids glucose and insulin and Lasix. Potassium come down to 6. Case was discussed with Dr. Martinez who requested admission and to give Kayexalate. She was recently admitted for acute kidney injury and was noted to have hyperkalemia on that admit as well but was felt was related to NSAID and ARB which were stopped. Patient is on IV daptomycin for knee infection. Patient denies any recent illnesses otherwise stating that sometimes she has good days and sometimes she has bad days. She does have occasional headaches. She has a chronic cough and shortness of breath but otherwise no new acute complaints Review of Systems: Pertinent positives as above. Denies fever/chills/nausea/vomiting/chest or abdominal pain/diarrhea. Remaining 10 point review of system reviewed negative. PHYSICAL EXAM General: Alert, Awake, No acute Distress, obese Eyes/N/T: EOMI, no scleral icterus, PERRL, MM Head/Neck: neck supple, full ROM, normocephalic atraumatic CV: RRR, No murmurs, normal s1/s2 Pulm: Few squeaks bilaterally but otherwise clear b/l, no wheezing, no respiratory distress Abd: soft, nontender, +BS x4 Ext: no clubbing/cyanosis, mild b/l LE edema, nontender, right knee dressings intact Neuro: Alert, no focal deficits, moves all extremities, CN 2-12 grossly intact, sensations intact b/l upper/lower Psychiatric: Skin: warm/dry, normal color PFSH PFSH All Active Problems (Updated 04/19/22 @ 08:40 by Ella Martinez MD) CKD (chronic kidney disease) stage 4, GFR 15-29 ml/min (Chronic) Tobacco use (Chronic) Arthritis (Chronic) Osteoarthritis (Chronic) Joint pain (Chronic) Depression (Chronic) Hypertension, essential (Chronic) Hyperlipidemia (Chronic) Recurrent Clostridium difficile diarrhea (Chronic) Stomach ache (Chronic) Ocular migraine (Chronic) Dizziness (Chronic) Aortic aneurysm (Chronic) Abnormal liver function test (Chronic) Paronychia (Acute) COPD (chronic obstructive pulmonary disease) (Chronic) Osteoarthrosis multiple sites, not specified as generalized (Chronic) Anxiety (Chronic) Pyelonephritis (Chronic) Myalgia (Chronic) Dysuria (Chronic) Basal cell carcinoma in situ of skin (Chronic) Knee pain, right (Chronic) Lumbar back pain (Chronic) Carpal tunnel syndrome, right upper limb (Chronic) Vesicular eczema of hands and feet (Chronic) Incontinence of feces with fecal urgency (Chronic) Dyspnea (Chronic) Abdominal pain, epigastric (Chronic) Bilateral thumb pain (Chronic) Nausea (Chronic) Tremor, unspecified (Chronic) Generalized headaches (Chronic) Recurrent acute sinusitis (Chronic) Mixed incontinence urge and stress (Chronic) Leg neuralgia (Chronic) Chronic venous insufficiency (Chronic) Clostridium difficile colitis (Chronic) Obesity (Chronic) Hypersomnia (Chronic) Nocturnal hypoxia (Chronic) Leg pain, right (Acute) Cellulitis of right leg (Acute) History of arthroplasty of right knee (Acute) Acute exacerbation of chronic obstructive airways disease (Acute) Sinusitis, acute (Acute) Headache (Acute) Tinnitus (Acute) COVID-19 (Acute) Hypoxia (Acute) Acute exacerbation of chronic obstructive pulmonary disease (Acute) Acute kidney injury (Acute) Acute hyperkalemia (Acute) Allergic drug rash due to non-narcotic analgesic (Acute) Acute renal failure superimposed on chronic kidney disease (Acute) Infection of total knee replacement (Acute) Acute hyperkalemia (Acute) Leukocytosis (Acute) Medical History Abdominal pain, epigastric Abnormal liver function test Anxiety Aortic aneurysm Arthritis 2006 Basal cell carcinoma in situ of skin Shoulder Bilateral thumb pain Carpal tunnel syndrome, right upper limb Chronic venous insufficiency Clostridium difficile colitis COPD (chronic obstructive pulmonary disease) Depression 2006 Dizziness 2015 Dyspnea Dysuria Generalized headaches Headache Hepatitis HIV antibody positive Hyperlipidemia 2006 Hypersomnia Hypertension, essential 2006 Incontinence of feces with fecal urgency Joint pain 2006 Knee pain, right Leg neuralgia Lumbar back pain Mixed incontinence urge and stress Myalgia Nausea Nocturnal hypoxia Obesity Ocular migraine 2015 Osteoarthritis 2006 Osteoarthrosis multiple sites, not specified as generalized Pyelonephritis Recurrent acute sinusitis Recurrent Clostridium difficile diarrhea 2016 Sinusitis, acute Stomach ache 2016 following c-diff Tinnitus Tobacco use Tremor, unspecified Vesicular eczema of hands and feet Surgical History H/O colonoscopy (01/17/16) History of carpal tunnel surgery (~2012) Left History of total knee arthroplasty (~2012) Left S/P hip replacement (~2014) Left S/P knee replacement 2014 Family History Mother Arthritis Alzheimer's disease Stroke Heart disease Diabetes Father Arthritis Liver cancer Stroke Heart disease Sister Arthritis Alzheimer's disease Hypertension, essential Thyroid disease Social History marital status: occupational status: employed occupation: [employer] other: Children-4 smoking status: Current every day smoker tobacco type: cigarettes per day: 5 pack-years: 50 alcohol intake frequency: does not drink substance use type: marijuana MEDS/ALLERGIES Home Medications and Allergies Home Medications Medication Instructions Recorded Confirmed Type metoprolol succinate 50 mg capsule 50 mg PO QDAY 08/24/18 04/19/22 History sprinkle, ext. release 24 hr citalopram 40 mg tablet 30 mg PO QDAY 11/11/21 04/19/22 History tramadol 50 mg tablet 50 mg PO TIDP PRN Pain 11/11/21 04/19/22 History albuterol sulfate 90 mcg/actuation 2 puff inhalation Q6H PRN 12/11/21 04/19/22 Rx aerosol inhaler shortness of breath or wheezing #8.5 grams aspirin 81 mg tablet 81 mg PO QHS 04/03/22 04/19/22 History cetirizine 10 mg tablet (Zyrtec) 10 mg PO QDAY 04/03/22 04/19/22 History daptomycin 425 mg IV Q48 04/03/22 04/19/22 History gabapentin 300 mg capsule 300 mg PO BID 04/03/22 04/19/22 History hydrocodone 10 mg-acetaminophen 1 - 2 tab PO Q4-6HP PRN Pain 04/03/22 04/19/22 History 325 mg tablet amlodipine 5 mg tablet (Norvasc) 5 mg PO QDAY #30 tabs 04/04/22 04/19/22 Rx torsemide 20 mg tablet 20 mg PO QDAY #1 tab 04/04/22 04/19/22 Rx Allergies Allergy/AdvReac Type Severity Reaction Status Date / Time Sulfa (Sulfonamide Allergy Severe ANAPHALAXIS Verified 04/19/22 10:41 Antibiotics) [SULFA (SULFONAMIDE ANTIBIOTICS)] latex [LATEX] Allergy Mild SWELLING/RE Verified 04/19/22 10:41 DNESS Cortisone Allergy Unknown "SICK" Verified 04/19/22 10:41 imiquimod Allergy Unknown Unknown Verified 04/19/22 10:41 sulfamethoxazole Allergy Unknown Unknown Verified 04/19/22 10:41 [From ] trimethoprim [From ] Allergy Unknown Unknown Verified 04/19/22 10:41 Carbonic Anhydrase Inhibitors AdvReac Unknown advise not Verified 04/19/22 10:41 to take due to r/o cdiff iv contrast Allergy Mild Hives Uncoded 01/17/22 13:55 EXAM Constitutional Vitals: Temp Pulse Resp BP Pulse Ox O2 Del Method 97.7 F 82 16 127/81 90 Room Air 04/18/22 22:14 04/19/22 04:01 04/19/22 09:28 04/19/22 08:30 04/19/22 04:01 04/18/22 22:14 DATA Data Completed and Pending Labs: Labs from last 24 hours 04/19/22 04/19/22 04/19/22 08:28 06:34 03:46 WBC RBC Hgb Hct POC Hct 29.0 L 31.0 L 26.0 L MCV MCH MCHC RDW Plt Count MPV Immature Gran % (Auto) Neut % (Auto) Lymph % (Auto) [place] % (Auto) Eos % (Auto) Baso % (Auto) Lymph # (Auto) [place] # (Auto) Eos # (Auto) Baso # (Auto) Immature Gran # Absolute Neutrophils POC Sodium 135 134 134 Sodium POC Potassium 6.1 H* 6.3 H* 5.9 H* Potassium POC Chloride 101 100 103 Chloride Carbon Dioxide POC Total CO2 27.0 29.0 28.0 Anion Gap POC BUN 54 H 56 H 55 H BUN Creatinine POC Creatinine 2.0 H 2.1 H 2.2 H GFR Calculation Glucose POC Glucose 90 91 72 Calcium POC WB Ioniz Calcium 1.25 1.25 1.22 Total Bilirubin AST ALT Alkaline Phosphatase Total Protein Albumin Globulin Albumin/Globulin Ratio Procalcitonin 04/19/22 04/19/22 04/18/22 00:37 00:00 23:59 WBC RBC Hgb Hct POC Hct 28.0 L MCV MCH MCHC RDW Plt Count MPV Immature Gran % (Auto) Neut % (Auto) Lymph % (Auto) [place] % (Auto) Eos % (Auto) Baso % (Auto) Lymph # (Auto) [place] # (Auto) Eos # (Auto) Baso # (Auto) Immature Gran # Absolute Neutrophils POC Sodium 133 Sodium 133 POC Potassium 6.9 H* Potassium 6.6 H* POC Chloride 101 Chloride 98 Carbon Dioxide 26 POC Total CO2 29.0 Anion Gap 9.0 POC BUN 56 H BUN 59 H Creatinine 1.9 H POC Creatinine 2.4 H GFR Calculation 26 Glucose 90 POC Glucose 96 Calcium 9.3 POC WB Ioniz Calcium 1.21 Total Bilirubin < 0.2 AST 24 ALT 41 H Alkaline Phosphatase 201 H Total Protein 7.2 Albumin 3.1 L Globulin 4.1 H Albumin/Globulin Ratio 0.8 L Procalcitonin 0.21 H 04/18/22 22:35 WBC 20.9 H RBC 3.29 L Hgb 9.4 L Hct 30.9 L POC Hct MCV 93.9 MCH 28.6 MCHC 30.4 L RDW 14.6 H Plt Count 516 H MPV 10.2 Immature Gran % (Auto) 3.3 H Neut % (Auto) 82.9 H Lymph % (Auto) 7.9 L [place] % (Auto) 5.1 Eos % (Auto) 0.7 Baso % (Auto) 0.1 Lymph # (Auto) 1.66 [place] # (Auto) 1.07 H Eos # (Auto) 0.15 Baso # (Auto) 0.02 Immature Gran # 0.69 H Absolute Neutrophils 17.33 H POC Sodium Sodium POC Potassium Potassium POC Chloride Chloride Carbon Dioxide POC Total CO2 Anion Gap POC BUN BUN Creatinine POC Creatinine GFR Calculation Glucose POC Glucose Calcium POC WB Ioniz Calcium Total Bilirubin AST ALT Alkaline Phosphatase Total Protein Albumin Globulin Albumin/Globulin Ratio Procalcitonin A/P Narrative A/P Narrative: A: *Hyperkalemia: -Patient found to have hyperkalemia on recent admission but had acute kidney injury as well and was on losartan and meloxicam and diuretics, which were stopped. Patient still on IV daptomycin for knee infection. *JORGE on CKD IV: *Leukocytosis/thrombocytosis: ?reactive, afebrile, nontoxic, pct low *Anemia, chronic: *HTN: *COPD(not on home O2): cont home IH's, monitor *Depression/anxiety: cont ssri, monitor *s/p right knee revision d/t infection (MSSA): on daptomycin outpt by Dr. Marcus *Obese: bmi 43 P: -Nephrology following -Kayexalate -f/u potassium -Avoid ACEI/ARB/potassium sparing diuretics/NSAIDs/nephrotoxic medications -diuretics per nephrology -May need to switch daptomycin to alternative antibiotic >> discussed with , will switch to cefazolin bid (renal) -Monitor UOP, renal function, I/O -IVF -check man diff and f/u cbc -cont norvasc/BB -Home medication reconciliation -PT/OT -ppx: Heparin Time Spent With Patient Time: Total time spent is greater than 50% in coordination of care (as documented) at patient's floor/unit and/or counseling patient:
[2022-04-19] MEDS ORDERED: IPRATROPIUM/ALBUTEROL 3 ML AMPUL.NEB NEB PRN (10:48)
[2022-04-19] MEDS ORDERED: POTASSIUM CHLORIDE 20 MEQ TABLET PO PRN ×2 (10:48)
[2022-04-19] MEDS ORDERED: POTASSIUM CHLORIDE 40 MEQ in DEXTROSE 5% IN WATER 500 ML IV PRN (10:48)
[2022-04-19] MEDS ORDERED: MAGNESIUM SULFATE 2 GM/50 ML BAG IV PRN (10:48)
[2022-04-19] MEDS ORDERED: SENNOSIDES 1 TABLET PO PRN (10:48)
[2022-04-19] MEDS ORDERED: ACETAMINOPHEN 325 MG TABLET PO PRN (10:48)
[2022-04-19] MEDS ORDERED: ONDANSETRON 4 MG/2 ML VIAL IV PRN (10:48)
[2022-04-19] MEDS ORDERED: POLYETHYLENE GLYCOL 3350 17 GM PACKET PO PRN (10:48)
[2022-04-19] MEDS: ceFAZolin 1 GM VIAL IP SCH ×2 (11:55→21:06)
--- NOTE | 2022-04-19 13:26 | Discharge Summary ---
Discharge Provider Provider IMPORTANT FOLLOW-UP INFORMATION FOR PCP: P: -Nephrology f/u for potassium monitoring -per nephro > stop ASA, stop BB and increase norvasc from 5mg to 10mg -switched daptomycin to cefazolin bid (renal) Patient information: Note initiated : 04/19/22 at 1:24 pm Service Date, if different from initiated Date: [] Patient: Corin Bryant 71 y/o F admitted on 04/19/22 for High K+. Chief Complaint: [] Date of admission: 04/19/22 10:10 Discharge date: 04/21/22 Primary care physician: Destiny Sarabia Consults: 04/19/22 Consult to Physician [CONS] Stat Comment: Consulting Provider: Ascencion Lawson Reason For Exam: Physician to Consult 04/19/22 08:59 Consult to Physician [CONS] Stat Comment: Consulting Provider: Ella Martinez Reason For Exam: Physician to Consult COURSE Hospital Course Hospital course: History of present illness: Ms. Bryant is a 71 year old F Patient sent to the emergency room for hyperkalemia which is reported as 7.2. Patient has a history of hyperkalemia and chronic kidney disease stage IV. She was seen in the ED and treated with IV fluids glucose and insulin and Lasix. Potassium come down to 6. Case was discussed with Dr. Martinez who requested admission and to give Kayexalate. She was recently admitted for acute kidney injury and was noted to have hyperkalemia on that admit as well but was felt was related to NSAID and ARB which were stopped. Patient is on IV daptomycin for knee infection. Patient denies any recent illnesses otherwise stating that sometimes she has good days and sometimes she has bad days. She does have occasional headaches. She has a chronic cough and shortness of breath but otherwise no new acute complaints 3/5 Leukocytosis improving without antibiotics, and no bandemia. Vital signs stable. Potassium down to 5.5. Further recommendations for treatment per nephrology. Renal function improving. Hypomagnesemia noted. Switch daptomycin to cefazolin twice daily and will discharge on this medication. Nurse did note that the patient desats while sleeping but has good oxygenation while awake. Patient will need referral to pulmonology for sleep study. 3/6 Patient doing well. Potassium down to 5.2. No overnight event or new complaints. Continue on cefazolin. Medication adjustments per nephrology recommendations. Leukocytosis resolved. Renal function now appears baseline A: *Hyperkalemia: improving -Patient found to have hyperkalemia on recent admission but had acute kidney injury as well and was on losartan and meloxicam which were stopped, was also on diuretics. Patient still on IV daptomycin for knee infection. *JORGE on CKD IV: improving *Leukocytosis(no bandemia)/thrombocytosis: ?reactive, afebrile, nontoxic, pct low, improving w/o abx *Anemia, chronic: *HTN: *COPD(not on home O2): cont home IH's, monitor -has been low at times *Depression/anxiety: cont ssri, monitor *s/p right knee revision d/t infection (MSSA): on daptomycin outpt by Dr. Marcus *Obese: bmi 43 *JAMIE likely: P: -Nephrology f/u for potassium monitoring -per nephro > stop ASA, stop BB and increase norvasc from 5mg to 10mg -switched daptomycin to cefazolin bid (renal) -home RT O2 eval Discharge diagnosis: Hyperkalemia acute on chronic kidney disease Secondary discharge diagnosis: Anemia hypertension COPD depression anxiety right knee infection on IV antibiotics outpatient obesity Time Spent with Patient Time attestation: Total time spent providing and/or coordinating discharge services: Time spent: Greater than 30 minutes EXAM Constitutional Vitals: Temp Pulse Resp BP Pulse Ox O2 Del Method O2 Flow Rate 97.5 F 89 18 97/58 96 Nasal Cannula 2 04/19/22 10:31 04/19/22 12:01 04/19/22 12:06 04/19/22 12:01 04/19/22 12:06 04/19/22 11:01 04/19/22 11:01 Discharge Data Data Completed and Pending Labs on day of discharge: Labs from last 24 hours 04/19/22 04/19/22 04/19/22 08:28 06:40 06:34 WBC RBC Hgb Hct POC Hct 29.0 L 31.0 L MCV MCH MCHC RDW Plt Count MPV Immature Gran % (Auto) Neut % (Auto) Lymph % (Auto) Worth % (Auto) Eos % (Auto) Baso % (Auto) Lymph # (Auto) Worth # (Auto) Eos # (Auto) Baso # (Auto) Immature Gran # Absolute Neutrophils Platelet Estimate Pending RBC Morphology Pending POC Sodium 135 134 Sodium POC Potassium 6.1 H* 6.3 H* Potassium POC Chloride 101 100 Chloride Carbon Dioxide POC Total CO2 27.0 29.0 Anion Gap POC BUN 54 H 56 H BUN Creatinine POC Creatinine 2.0 H 2.1 H GFR Calculation Glucose POC Glucose 90 91 Calcium POC WB Ioniz Calcium 1.25 1.25 Total Bilirubin AST ALT Alkaline Phosphatase Total Protein Albumin Globulin Albumin/Globulin Ratio Procalcitonin 04/19/22 04/19/22 04/19/22 03:46 00:37 00:00 WBC RBC Hgb Hct POC Hct 26.0 L 28.0 L MCV MCH MCHC RDW Plt Count MPV Immature Gran % (Auto) Neut % (Auto) Lymph % (Auto) Worth % (Auto) Eos % (Auto) Baso % (Auto) Lymph # (Auto) Worth # (Auto) Eos # (Auto) Baso # (Auto) Immature Gran # Absolute Neutrophils Platelet Estimate RBC Morphology POC Sodium 134 133 Sodium 133 POC Potassium 5.9 H* 6.9 H* Potassium 6.6 H* POC Chloride 103 101 Chloride 98 Carbon Dioxide 26 POC Total CO2 28.0 29.0 Anion Gap 9.0 POC BUN 55 H 56 H BUN 59 H Creatinine 1.9 H POC Creatinine 2.2 H 2.4 H GFR Calculation 26 Glucose 90 POC Glucose 72 96 Calcium 9.3 POC WB Ioniz Calcium 1.22 1.21 Total Bilirubin < 0.2 AST 24 ALT 41 H Alkaline Phosphatase 201 H Total Protein 7.2 Albumin 3.1 L Globulin 4.1 H Albumin/Globulin Ratio 0.8 L Procalcitonin 04/18/22 04/18/22 23:59 22:35 WBC 20.9 H RBC 3.29 L Hgb 9.4 L Hct 30.9 L POC Hct MCV 93.9 MCH 28.6 MCHC 30.4 L RDW 14.6 H Plt Count 516 H MPV 10.2 Immature Gran % (Auto) 3.3 H Neut % (Auto) 82.9 H Lymph % (Auto) 7.9 L Worth % (Auto) 5.1 Eos % (Auto) 0.7 Baso % (Auto) 0.1 Lymph # (Auto) 1.66 Worth # (Auto) 1.07 H Eos # (Auto) 0.15 Baso # (Auto) 0.02 Immature Gran # 0.69 H Absolute Neutrophils 17.33 H Platelet Estimate RBC Morphology POC Sodium Sodium POC Potassium Potassium POC Chloride Chloride Carbon Dioxide POC Total CO2 Anion Gap POC BUN BUN Creatinine POC Creatinine GFR Calculation Glucose POC Glucose Calcium POC WB Ioniz Calcium Total Bilirubin AST ALT Alkaline Phosphatase Total Protein Albumin Globulin Albumin/Globulin Ratio Procalcitonin 0.21 H Discharge Plan Patient/Caregiver Discharge Instructions Activity: increase activity as tolerated Diet: Regular Diet and Renal Instructions: Chronic Kidney Disease (DC), Chronic Kidney Disease Diet (DC), Hypertension (DC) Activity Restrictions/Additional Instructions: Follow-up with Dr. Marcus for the knee infection and antibiotics as needed. Home oxygen for underlying COPD. Prescriptions: New cefazolin 1 gram recon soln 1 g IV Q12H Qty: 28 0RF Continued citalopram 40 mg tablet 30 mg PO QDAY tramadol 50 mg tablet 50 mg PO TIDP PRN (Reason: Pain) [id number] [Trelegy Ellipta] 100-62.5-25 mcg blister with device 1 inh inhalation QDAY 0RF albuterol sulfate 90 mcg/actuation HFA aerosol inhaler 2 puff inhalation Q6H PRN (Reason: shortness of breath or wheezing) Qty: 8.5 0RF cetirizine [Zyrtec] 10 mg Tablet 10 mg PO QDAY hydrocodone-acetaminophen 10-325 mg Tablet 1 - 2 tab PO Q4-6HP PRN (Reason: Pain) Patient Comments: "has not been taking it for weeks." Was taking after her knee surgery. gabapentin 300 mg capsule 300 mg PO BID torsemide 20 mg tablet 20 mg PO QDAY Qty: 1 0RF Patient Comments: "arthritis pain" lamotrigine 25 mg tablet 25 mg PO QDAY Changed amlodipine [Norvasc] 5 mg tablet 10 mg PO QDAY Qty: 30 0RF Discontinued metoprolol succinate 50 mg susan hood,ER 24hr dose pack 50 mg PO QDAY aspirin 81 mg Tablet 81 mg PO QHS daptomycin 425 mg IV Q48 Rx Instructions: Every other day. Dose due at 1600, 04/19/22. losartan 50 mg tablet 50 mg PO QDAY Patient Comments: Pt told RN that she,"has not been taking this for weeks." Follow Up Plan Follow up with: Destiny Sarabia MD [Primary Care Provider] - 04/25/22 10:00 am (Hospital Follow up) Uriel Marcus MD [Physician] - 05/13/22 (This appt was already scheduled before hospital visit.Call office if any change and need to be seen sooner.) Ruben Chowdhury MD [Physician] - 04/22/22 4:00 pm () Patient Disposition: Home, Self-Care Plan of Treatment: ABOVE RENAL FOLLOW UP WITH DR CHOWDHURY Prognosis: Fair Overall status at discharge: patient is progressing back to baseline Discharge Orders: Discharge Order (Routine); Ordered 04/21/22 Ordered By: Ascencion Lawson
[2022-04-19] MEDS: 0.9 % SODIUM CHLORIDE 10 ML SYRINGE IV SCH ×3 (13:54→21:09)
[2022-04-19 15:06] LABS: Lymphocytes % 8 % (15-49); Monocytes % (Manual) 7 % (1-12); Platelet Estimate NORMAL (Normal); RBC Morphology NORMAL (Normal); Segmented Neutrophils % 85 % (38-78)
[2022-04-19] MEDS ORDERED: METOPROLOL SUCCINATE 50 MG TAB.XL.24H PO SCH (15:15)
[2022-04-19] MEDS ORDERED: TORSEMIDE 20 MG TABLET PO SCH (15:15)
[2022-04-19] MEDS ORDERED: HYDROcodone/APAP 10/325MG TABLET PO PRN (15:37)
[2022-04-19] MEDS ORDERED: traMADol 50 MG TABLET PO PRN (15:42)
[2022-04-19 16:22] LABS: POC Calcium, Ionized 1.17 (1.16-1.32); POC Creatinine 2.1 (0.6-1.2); POC Potassium 5.8 (3.3-5.1)
[2022-04-19] MEDS ORDERED: ASPIRIN 81 MG TAB.CHEW PO SCH (21:00)
[2022-04-19] MEDS: HEPARIN 5,000 UNIT/ML VIAL SQ SCH (21:06)
[2022-04-19] MEDS: GABAPENTIN 300 MG CAPSULE PO SCH (21:07)
[2022-04-19] MEDS: DOCUSATE SODIUM 100 MG CAPSULE PO SCH (21:07)
[2022-04-20] MEDS: 0.9 % SODIUM CHLORIDE 10 ML SYRINGE IV SCH ×5 (06:31→20:08)
[2022-04-20 07:09] LABS: Hematocrit 31.4 % (34.1-44.9); Hemoglobin 9.3 g/dL (11.2-15.7); Mean Cell Volume 96.9 fL (80.0-100.0); Mean Corpuscular HGB Conc 29.6 g/dL (31.0-36.0); Mean Platelet Volume 10.1 fL (8.8-12.5); Platelet Count 442 K/mcL (140-440); RBC 3.24 M/mcL (3.59-5.38); Red Cell Distribution Width 15.1 % (11.5-14.5); WBC 12.2 K/mcL (4.5-11.0)
[2022-04-20 07:46] LABS: ALT/SGPT 25 U/L (<40); AST/SGOT 17 U/L (<32); Albumin 2.8 gm/dL (3.2-5.2); Albumin/Globulin Ratio 0.8 (1.0-2.3); Alkaline Phosphatase 153 U/L (39-117); Bilirubin,Direct < 0.2 mg/dL (0-0.3); Bilirubin,Total < 0.2 mg/dL (0.1-1.0); Blood Urea Nitrogen 46 mg/dL (8-23); Carbon Dioxide 28 mmol/L (22-30); Chloride 99 mmol/L (96-108); Globulin 3.6 gm/dL (2.2-3.7); Glomerular Filtration Rate 32; Glucose 70 mg/dL (70-105); Lactate Dehydrogenase 182 U/L (135-225); Phosphorous 3.5 mg/dL (2.5-4.5); Triglycerides 185 mg/dL (<150); Uric Acid 6.3 mg/dL (2.5-8.0)
--- NOTE | 2022-04-20 08:27 | Internal Med Progress Note ---
SUBJECTIVE Subjective Patient information: Note initiated : 04/20/22 at 8:23 am Service Date, if different from initiated Date: [] Patient: Corin Bryant 71 y/o F admitted on 04/19/22 for High K+. Chief Complaint: [] Interval history: History of present illness: Ms. Bryant is a 71 year old F Patient sent to the emergency room for hyperkalemia which is reported as 7.2. Patient has a history of hyperkalemia and chronic kidney disease stage IV. She was seen in the ED and treated with IV fluids glucose and insulin and Lasix. Potassium come down to 6. Case was discussed with Dr. Martinez who requested admission and to give Kayexalate. She was recently admitted for acute kidney injury and was noted to have hyperkalemia on that admit as well but was felt was related to NSAID and ARB which were stopped. Patient is on IV daptomycin for knee infection. Patient denies any recent illnesses otherwise stating that sometimes she has good days and sometimes she has bad days. She does have occasional headaches. She has a chronic cough and shortness of breath but otherwise no new acute complaints 3/5 Leukocytosis improving without antibiotics, and no bandemia. Vital signs stable. Potassium down to 5.5. Further recommendations for treatment per nephrology. Renal function improving. Hypomagnesemia noted. Switch daptomycin to cefazolin twice daily and will discharge on this medication. Nurse did note that the patient desats while sleeping but has good oxygenation while awake. Patient will need referral to pulmonology for sleep study. Review of Systems: Denies fever/chills/nausea/vomiting/chest or abdominal pain/diarrhea. Oth erwise as above PHYSICAL EXAM General: Alert, Awake, No acute Distress, obese Eyes/N/T: EOMI, no scleral icterus, Head/Neck: neck supple, full ROM, CV: RRR, No murmurs, Pulm: clear b/l, no wheezing, no respiratory distress Abd: soft, nontender, +BS x4 Ext: no clubbing/cyanosis, mild b/l LE edema, nontender, right knee dressings intact Neuro: Alert, no focal deficits, moves all extremities, sensations intact b/l upper/lower Psychiatric: Constitutional Vitals: Vital Signs Temp Pulse Resp BP Pulse Ox O2 Del Method O2 Flow Rate 97.9 F 96 H 24 H 135/94 94 Nasal Cannula 2 04/20/22 08:02 04/20/22 08:02 04/20/22 08:02 04/20/22 08:02 04/20/22 08:02 04/20/22 07:21 04/20/22 07:21 Period Temp Pulse Resp BP Sys/Mcmahon Pulse Ox O2 Del Method O2 Flow Rate Last 24 Hr 97.5 F-98.7 F 85-106 15-24 93-142/58-94 84-98 Nasal Cannula- Room Air 2-2 Intake and Output 04/19/22 04/20/22 04/20/22 19:59 03:59 11:59 Intake Total 240 1240 Output Total 1975 1200 550 Balance -1735 40 -550 Weight 112.99 kg Intake & Output: Intake & Output 04/19/22 04/20/22 04/20/22 19:59 03:59 11:59 Intake Total 240 1240 Output Total 1975 1200 550 Balance -1735 40 -550 Weight 112.99 kg Intake: IV 1000 Sodium Chloride 0.9% 1,000 ml @ 1000 100 mls/hr IV .Q10H COUNTS INCLUDE 234 BEDS AT THE [facility] Rx#: [id number] Oral 240 240 Output: Void Amount 875 1150 550 Urine/Stool Mix 1000 Stool 100 50 Other: Meal Dinner Percent of Meal Consumed 100% Feeding Ability Independent Urine Appearance Clear Clear Clear Urine Color Yellow Pale Yellow Pale Pale Urine Odor Normal Normal Normal Stool Size Copious Stool Color Yellow Brown Stool Consistency Liquid Loose OBJ DATA Labs 04/20/22 05:26 04/20/22 05:25 Labs: Abnormal Lab Results 04/20/22 04/20/22 04/19/22 05:26 05:25 16:19 WBC 12.2 H RBC 3.24 L Hgb 9.3 L Hct 31.4 L POC Hct 28.0 L MCHC 29.6 L RDW 15.1 H Plt Count 442 H Immature Gran % (Auto) Neut % (Auto) Lymph % (Auto) Titus # (Auto) Seg Neutrophils % Lymphocytes % Immature Gran # Absolute Neutrophils POC Potassium 5.8 H Potassium 5.5 H POC BUN 50 H BUN 46 H Creatinine 1.6 H POC Creatinine 2.1 H Magnesium 1.5 L ALT Alkaline Phosphatase 153 H Albumin 2.8 L Globulin Albumin/Globulin Ratio 0.8 L Triglycerides 185 H Procalcitonin 03/04/23 03/04/23 03/04/23 08:28 06:40 06:34 WBC RBC Hgb Hct POC Hct 29.0 L 31.0 L MCHC RDW Plt Count Immature Gran % (Auto) Neut % (Auto) Lymph % (Auto) Titus # (Auto) Seg Neutrophils % 85 H Lymphocytes % 8 L Immature Gran # Absolute Neutrophils POC Potassium 6.1 H* 6.3 H* Potassium POC BUN 54 H 56 H BUN Creatinine POC Creatinine 2.0 H 2.1 H Magnesium ALT Alkaline Phosphatase Albumin Globulin Albumin/Globulin Ratio Triglycerides Procalcitonin 04/19/22 04/19/22 04/19/22 03:46 00:37 00:00 WBC RBC Hgb Hct POC Hct 26.0 L 28.0 L MCHC RDW Plt Count Immature Gran % (Auto) Neut % (Auto) Lymph % (Auto) Titus # (Auto) Seg Neutrophils % Lymphocytes % Immature Gran # Absolute Neutrophils POC Potassium 5.9 H* 6.9 H* Potassium 6.6 H* POC BUN 55 H 56 H BUN 59 H Creatinine 1.9 H POC Creatinine 2.2 H 2.4 H Magnesium ALT 41 H Alkaline Phosphatase 201 H Albumin 3.1 L Globulin 4.1 H Albumin/Globulin Ratio 0.8 L Triglycerides Procalcitonin 04/18/22 04/18/22 23:59 22:35 WBC 20.9 H RBC 3.29 L Hgb 9.4 L Hct 30.9 L POC Hct MCHC 30.4 L RDW 14.6 H Plt Count 516 H Immature Gran % (Auto) 3.3 H Neut % (Auto) 82.9 H Lymph % (Auto) 7.9 L Titus # (Auto) 1.07 H Seg Neutrophils % Lymphocytes % Immature Gran # 0.69 H Absolute Neutrophils 17.33 H POC Potassium Potassium POC BUN BUN Creatinine POC Creatinine Magnesium ALT Alkaline Phosphatase Albumin Globulin Albumin/Globulin Ratio Triglycerides Procalcitonin 0.21 H Meds: Medications Acetaminophen (Acetaminophen 325 Mg Tablet) 650 mg PO Q6HP PRN; Protocol PRN Reason: Per Pain Protocol/Fever > 101 Hydrocodone Bitart/Acetaminophen (Hydrocodone/Apap 10/325mg Tablet) 1 - 2 tab PO Q4-6HP PRN; Protocol PRN Reason: Pain Albuterol/Ipratropium (Ipratropium/Albuterol 3 Ml Ampul.Neb) 3 ml NEB Q4HP PRN PRN Reason: Shortness Of Breath Amlodipine Besylate (Amlodipine 5 Mg Tablet) 5 mg PO QDAY COUNTS INCLUDE 234 BEDS AT THE [facility] Aspirin (Aspirin 81 Mg Tab.Chew) 81 mg PO QHS COUNTS INCLUDE 234 BEDS AT THE [facility] Last Admin: 04/19/22 21:07 Dose: 81 mg Cefazolin Sodium (Cefazolin 1 Gm Vial) 1 gm IP Q12H COUNTS INCLUDE 234 BEDS AT THE [facility] Last Admin: 04/19/22 21:06 Dose: 1 gm Citalopram Hydrobromide (Citalopram 20 Mg Tablet) 30 mg PO QDAY COUNTS INCLUDE 234 BEDS AT THE [facility] Docusate Sodium (Docusate Sodium 100 Mg Capsule) 100 mg PO BID COUNTS INCLUDE 234 BEDS AT THE [facility] Last Admin: 04/19/22 21:07 Dose: 100 mg Gabapentin (Gabapentin 300 Mg Capsule) 300 mg PO BID COUNTS INCLUDE 234 BEDS AT THE [facility] Last Admin: 04/19/22 21:07 Dose: 300 mg Heparin Sodium (Porcine) (Heparin Flush 10 Units/Ml 5 Ml Syringe) 2 ml IV Q12 COUNTS INCLUDE 234 BEDS AT THE [facility] Last Admin: 04/19/22 21:07 Dose: 2 ml Heparin Sodium (Porcine) (Heparin 5,000 Unit/Ml Vial) 5,000 unit SQ Q12 COUNTS INCLUDE 234 BEDS AT THE [facility] Last Admin: 04/19/22 21:06 Dose: 5,000 unit Potassium Chloride 40 meq/ (Dextrose) 520 mls @ 130 mls/hr IV UD PRN PRN Reason: Potassium < 3 Magnesium Sulfate (Magnesium Sulfate) 2 gm in 50 mls @ 50 mls/hr IV UD PRN PRN Reason: Magnesium </= 1.6 Metoprolol Succinate (Metoprolol Succinate 50 Mg Tab.Xl.24h) 50 mg PO DAILY COUNTS INCLUDE 234 BEDS AT THE [facility] Ondansetron HCl (Ondansetron 4 Mg/2 Ml Vial) 4 mg IV Q4HP PRN PRN Reason: Nausea And Vomiting Last Admin: 04/19/22 11:14 Dose: 4 mg Polyethylene Glycol (Polyethylene Glycol 3350 17 Gm Packet) 17 gm PO DAILYP PRN PRN Reason: Constipation Potassium Chloride (Potassium Chloride 20 Meq Tablet) 40 meq PO UD PRN PRN Reason: Potssium is 3-3.5 Potassium Chloride (Potassium Chloride 20 Meq Tablet) 40 meq PO UD PRN PRN Reason: Potassium < 3 Senna (Sennosides 1 Tablet) 2 tab PO DAILYP PRN PRN Reason: Constipation Sodium Chloride (0.9 % Sodium Chloride 10 Ml Syringe) 10 ml IV Q12 COUNTS INCLUDE 234 BEDS AT THE [facility] Last Admin: 04/19/22 21:08 Dose: 10 ml Sodium Chloride (0.9 % Sodium Chloride 10 Ml Syringe) 10 ml IV UD PRN PRN Reason: FLUSH Sodium Chloride (0.9 % Sodium Chloride 10 Ml Syringe) 10 ml IV Q8 COUNTS INCLUDE 234 BEDS AT THE [facility] Last Admin: 04/20/22 06:31 Dose: Not Given Tramadol HCl (Tramadol 50 Mg Tablet) 50 mg PO TIDP PRN PRN Reason: Pain A/P Narrative A/P Narrative: A: *Hyperkalemia: improving -Patient found to have hyperkalemia on recent admission but had acute kidney injury as well and was on losartan and meloxicam which were stopped, was also on diuretics. Patient still on IV daptomycin for knee infection. *JORGE on CKD IV: improving *Leukocytosis(no bandemia)/thrombocytosis: ?reactive, afebrile, nontoxic, pct low, improving w/o abx *Anemia, chronic: *HTN: *COPD(not on home O2): cont home IH's, monitor *Depression/anxiety: cont ssri, monitor *s/p right knee revision d/t infection (MSSA): on daptomycin outpt by Dr. Marcus *Obese: bmi 43 *JAMIE likely: P: -Nephrology following, further recs per nephro -s/p Kayexalate yesterday -f/u potassium -Avoid ACEI/ARB/potassium sparing diuretics/NSAIDs/nephrotoxic medications -diuretics per nephrology -May need to switch daptomycin to alternative antibiotic >> discussed with , will switch to cefazolin bid (renal) -Monitor UOP, renal function, I/O -IVF d/c -cont norvasc/BB, d/c home ARB -PT/OT -Referral to pulmonology for sleep study -ppx: Heparin Time Spent With Patient Time: Total time spent is greater than 50% in coordination of care (as documented) at patient's floor/unit and/or counseling patient:
[2022-04-20 08:30] LABS: Band Neutrophils % 1 % (0-10); Eosinophils % (Manual) 12 % (0-7); Hypochromasia 1+ (None Seen); Lymphocytes % 16 % (15-49); Monocytes % (Manual) 4 % (1-12); Platelet Estimate INCREASED (Normal); RBC Morphology ABNORMAL (Normal); Segmented Neutrophils % 67 % (38-78)
[2022-04-20] MEDS ORDERED: TORSEMIDE 20 MG TABLET PO SCH (09:00)
[2022-04-20] MEDS ORDERED: METOPROLOL SUCCINATE 50 MG TAB.XL.24H PO SCH (09:00)
[2022-04-20] MEDS: ceFAZolin 1 GM VIAL IP SCH (09:00)
[2022-04-20] MEDS ORDERED: amLODIPine 5 MG TABLET PO SCH (09:00)
[2022-04-20] MEDS: DOCUSATE SODIUM 100 MG CAPSULE PO SCH ×2 (09:01→20:07)
[2022-04-20] MEDS: CITALOPRAM 20 MG TABLET PO SCH (09:01)
[2022-04-20] MEDS: GABAPENTIN 300 MG CAPSULE PO SCH ×2 (09:01→20:07)
[2022-04-20] MEDS: lamoTRIgine 25 MG TABLET PO SCH (09:01)
[2022-04-20] MEDS: HEPARIN 5,000 UNIT/ML VIAL SQ SCH ×2 (09:01→20:07)
--- NOTE | 2022-04-20 10:42 | Nephrology Progress Note ---
SUBJECTIVE Subjective Patient information: Note initiated : 04/20/22 at 10:42 am Service Date, if different from initiated Date: [] Patient: Corin Bryant 71 y/o F admitted on 04/19/22 for High K+. Chief Complaint: [high potassium level] Principal diagnosis: Hyperkalemia Interval history: Prior Consult 04/03/2022: Consult Narrative Chief complaint: Abnl Labs Reason for consult: Hyperkalemia and ARF on CKD 3 History of present illness: See Dr Lawson's note below: Patient presents to the ED sent in because she had abnormal labs. The labs were routine because she was on IV daptomycin for a knee infection. Patient had a revision of her right knee a week ago by Dr. Marcus at [facility]. She was sent home on IV daptomycin infusions. Wound cultures that she showed grew MSSA. The only other new medications she started recently was torsemide several months ago when she started seeing Dr. Chowdhury for chronic kidney disease. She states that since she got out of the hospital she has had her good and bad days. She says since she has been out of the hospital she feels has not been drinking as much fluid as usual. She does have history of lower extremity edema which is improved since starting on the torsemide. She is found to have a creatinine of 2.9 and a potassium of 6.0. She received insulin and glucose in the ED. As well as calcium gluconate. She is also received IV fluids. Potassium did come down to 5.6. Patient also takes losartan. When I was called by ED staff, I was told BP 96/60. I advised the ER to stop LOSARTAN, Stop any NSAIDs and start to hydrate with IVF. More likely than ARF from Daptomycin would be ARF from diuresis, ARB, hypotension and vasodilation 2/2 infection +/- NSAIDs. Also told 50% chance of needing Acute HD and if there is going to be improvement in GFR, it could take 72 hrs from last dose of losartan to see some improvement. Hears the history I was able to glean from the patient and some records from [facility]. Patient has a history of mild chronic kidney disease with creatinine about 1.[address] Chowdhury. When asked what her kidney disease is from all she can tell me is high blood pressure and smoking. Asked if she was 1 taking a lot of nonsteroidal anti-inflammatories for DJD she tells me no she has been told not to take those medicines. She does have obesity she apparently does not have diabetes or significant proteinuria. Orthopedic problems were initially addressed with right TKA in November [id number] by Dr. Marcus. When okay until she presented to the [facility] on 03/21/2022. There I see she was taking meloxicam 15 mg a day so this no doubt is an additional factor in her acute renal failure but the problem at that stay was that she had worsening knee pain swelling and redness she was placed on tramadol Percocet amoxicillin and Flagyl. Outpatient therapy apparently failed to improve her right knee pain. Hand notation in the chart on March 24, 2022 reports cultures from the knee with gram-positive cocci. On 03/24/2022 she will underwent a right knee irrigation and debridement and antibiotic bead placement and right knee revision with 1 component of the knee replaced. At time of opening the knee there was a gush of purulent fluid so there is no question of the diagnosis and the white count was 9800 at that time along with a BUN of 48 and a creatinine of 2.0 sodium was 132 potassium 4 9 albumin was 3.6 and cultures from the ninth were reported to grow Staph aureus which was pansensitive except for intermediate to tetracycline a PICC line was placed on the and ultimately she was placed on daptomycin every other day daily dosing. She was trained up to do it herself. When looking at the possibilities of how this could have been infected 2 years later it is obvious that this lady is having some sort of allergic reaction (meloxicam) and her body is covered with a red rash especially her lower extremities which is pruritic enough that she is excoriated and no doubt intro duced bacteria into her knee by the rash and excoriation from itching. Also of the meloxicam is the missing link into why her renal function is declining as she is on both a Rollins 2 inhibitor and a RAASI inhibitor which would lead to dysregulation of renal blood flow particularly if she had low blood pressure which she did in the emergency room as I was told of is in the 90s systolic. My advice would be absolutely no Rollins 2 inhibitors aspirin or NSAIDs. Hydrate to get the blood pressure around 120/80 to 130/80 You can continue the metoprolol I will hold the tourism I had for a while Stop the losartan for at least 48 hours Since by history her rash started well before she was placed on daptomycin I would just continue without antibiotic unless she developed an eosinophilia or worsening renal function I expect both her kidney function and potassium to improve in 72 hours now that has been able to complete the history taking Renal F/U: 04/04/22 Principal diagnosis: ARF superimposed on CKD 3 with hyperkalemia Interval history: ARF on CKD [address] Chowdhury MSSGeovanna right need TKR with washout, ABx beads, component replacement and MSSA on cultue HTN on ARB Placed on MELOXICAM OUTPATIENT Developed rash arms, legs, trunk with itching and excoriation Placed on Daptomycin for infected knee Developed hyperkalemia and ARF For reasons not clear to me was sent to [facility] where none of the involved MDs work. ARF due to ARB, low BP (90's in ED), vasodilation from rash, meloxicam and torsemide. Fena <2% and TTKG c/w renal causes of hyperkalemia. No evidence of drug induced AIN. Rash is temporally related to Meloxicam. No lab evidence of infectious GN GFR better and hyperkalemia better and has received torsemide and losartan here. OK for discharge but if I strongly recommend STOPPING ACE1 and ARB as she is lik ivan to have someone restart a NSAID or ROLLINS [address]. Also hold the furosemide since this was started about 3 months ago and could be involved in her drug-induced rash. Given some Solu-Medrol Dosepak as she has been on antibiotics 2 weeks ectomy is improving but the Rash is not. Nephrology consult 04/19/2021: Corin Bryant is a 71-year-old female with chronic kidney disease stage 3-4 who was sent to the emergency department for hyperkalemia. Patient has been receiving IV daptomycin for a knee infection. She was recently admitted for hyperkalemia at [facility] (04/02/22 to 04/04/22). It was attributed to losartan and meloxicam which were discontinued. Nephrology consultation was requested for hyperkalemia. Chronic kidney disease stage 3-4 with hyperkalemia, possible acute component, present on arrival. There is no recent history of IV contrast administration or NSAID use. Previous work up: Urinalysis on 04/03/22: Yellow, Cloudy, pH 5.5, SG 1.010, protein negative, blood trace-intact, leukocyte esterase trace. CT Abdomen and Pelvis without contrast on 10/13/22: There is mild parenchymal scarring in the upper pole the right kidney with atrophy. Exophytic 1.8 cm cyst is present in the lower pole the right kidney. Left kidney is normal. There is no kidney stone or hydronephrosis. 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 Urine eosinophil on 04/03/22: <1%. Progress: Serum creatinine 1.9 on 04/19/22. Baseline serum creatinine: 1.9 (eGFR 26) on 04/04/22. Urine output: 50 ml reported in the ED. Hyperkalemia. No fluid overload. No uremic symptoms. Recommendations/Plan: Avoid LR which contains potassium. No urgent acute hemodialysis need. Kayexalate 30 g PO x 1. Continue loop diuretics. Avoid BRYAN/ARB and potassium sparing diuretics. Avoid NSAIDs, nephrotoxic medications and IV contrast. Monitor BMP and urine output. Scheduled with Dr. Chowdhury for outpatient nephrology follow up. Serum Creatinine Serum Potassium So what's causing her hyperkalemia? Her son has ESRD so she knows all about dietary restriction of potassium ACEi, bactrim and ROLLINS II inbitors/ NSAIDs have beens stopped. Daptomycin has been associated with Rhabdomyolysis, ARF and hyperkalemia but this does not appear to be at play here. I'm left with B-blockers and interference with cellular uptake of potassium by fat , muscle, RBCs etc so stop metoprolol and increase amlodipine to 10 mg qD. Finally, PSEUDOHYPERKALEIA with THROMBOCYTOSIS and LYSIS OF PLATELETS dev drawn thru PICC LINE is possible. So peripheral blood draws at home are advised. OK for dischage home tomorrow on AMLODIPINE 10 mg nga;y, NO METOPROLOL, and periprheral blood draws no PICC line draws to avoid lysis of platelets. Pertinent ROS: Diet reviewd Home meds reviewed Patient unsatisfied with medication reconciliation at discharge leading to confusion but she knows what she is doing Additional PMFSH (Level 3 Only): Son with ESRD s/P RTX Constitutional Vitals: Vital Signs Temp Pulse Resp BP Pulse Ox O2 Del Method O2 Flow Rate 36.6 C 79 16 144/83 94 Nasal Cannula 2 04/20/22 08:02 04/20/22 10:00 04/20/22 10:00 04/20/22 10:00 04/20/22 10:00 04/20/22 07:21 04/20/22 07:21 Period Temp Pulse Resp BP Sys/Mcmahon Pulse Ox O2 Del Method O2 Flow Rate Last 24 Hr 36.4 C-37.1 C 79-106 16-24 93-144/58-94 84-98 Nasal Cannula- Nasal Cannula 2-2 Intake and Output 04/19/22 04/20/22 04/20/22 19:59 03:59 11:59 Intake Total 240 1240 Output Total 1974 1200 550 Balance -1735 40 -550 Weight 112.99 kg Intake & Output: Intake & Output 04/19/22 04/20/22 04/20/22 19:59 03:59 11:59 Intake Total 240 1240 Output Total 1974 1200 550 Balance -1735 40 -550 Weight 112.99 kg Intake: IV 1000 Sodium Chloride 0.9% 1,000 ml @ 1000 100 mls/hr IV .Q10H [facility] Rx#: [id number] Oral 240 240 Output: Void Amount 875 1150 550 Urine/Stool Mix 1000 Stool 100 50 Other: Meal Dinner Percent of Meal Consumed 100% Feeding Ability Independent Urine Appearance Clear Clear Clear Urine Color Yellow Pale Yellow Pale Pale Urine Odor Normal Normal Normal Stool Size Copious Stool Color Yellow Brown Stool Consistency Liquid Loose General appearance: average body habitus Head Head exam: Present normal inspection Eye Eye exam: Present EOMI and PERRL ENT ENT exam: Present mucous membranes moist Respiratory Respiratory exam: Present CTAB Cardiovascular Cardiovascular exam: Present normal rate and rhythm, +S1 and +S2; Absent JVD GI/Abdominal GI/Abdominal exam: Present normal bowel sounds Neurological Exam Neurological exam: Present CN II-XII intact Additional comments: nonfocal Psychiatric Psychiatric exam: Present normal affect A/P Assessment and plan (1) Hypertension, essential: Status: Chronic Comment: 2005 (2) Acute hyperkalemia: Status: Acute Comment: Drug effect Diet seems to NOT be the issue GFR has improved while K went back up before this re-admission DISCONTINUE B-BLOCKERS HIGH PLATELET COUNT COUNT CONTRIBUTE TO PSEUDOHYPERKALEMIA BY LYSIS OF PLATELETS WHEN DRAWN THRU A PICC CATHETER OR LONG TRANSPORT TIME - TELL HOME HEALTH TO DRAW BLOOD VIA PERIPHERAL VENIPUNCTURE AND TRANSPORT IMMEDIATELY TO LAB OR TRANSPORT ON ICE. USE 18 GAUGE NEEDLE OR LARGER TO AVOID LYSIS. Plan 1 Hyperkalemia: DISCONTINUE B-BLOCKERS HIGH PLATELET COUNT COUNT CONTRIBUTE TO PSEUDOHYPERKALEMIA BY LYSIS OF PLATELETS WHEN DRAWN THRU A PICC CATHETER OR LONG TRANSPORT TIME - TELL HOME HEALTH TO DRAW BLOOD VIA PERIPHERAL VENIPUNCTURE AND TRANSPORT IMMEDIATELY TO LAB OR TRANSPORT ON ICE. USE 18 GAUGE NEEDLE OR LARGER TO AVOID LYSIS. 2. HTN STOP METOPROLOL DISCHARGE ON AMLODIPINE 10 MG A DAY IN PLACE OF PRIOR DOSE OF 5 MG QD 3. ARF ON CKD 4 BACK TO BASELINE AVOID RAASI THERAPY GOAL BP 130/80 AVOIDING RASSI THERAPY AND B-BLOCKERS NO NSAIDS OR ROLLINS II INHIBITORS Narrative A/P Narrative: ABOVE Plan of Treatment: ABOVE RENAL FOLLOW UP WITH DR CHOWDHURY Time Spent With Patient Time: Total time spent is greater than 50% in coordination of care (as documented) at patient's floor/unit and/or counseling patient: Initial: Total time with patient: 40 - 54 minutes
[2022-04-20] MEDS: ceFAZolin 1 GM VIAL IV SCH (20:07)
--- NOTE | 2022-04-20 20:36 | EKG ---
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
[2022-04-21] MEDS: 0.9 % SODIUM CHLORIDE 10 ML SYRINGE IV SCH ×2 (05:27→09:00)
[2022-04-21 06:36] LABS: Basophils # (Auto) 0.04 K/mcL (0.00-0.30); Basophils % (Auto) 0.4 % (0.0-2.0); Eosinophils # (Auto) 1.73 K/mcL (0.00-0.70); Eosinophils % (Auto) 16.4 % (0.0-7.0); Hematocrit 28.9 % (34.1-44.9); Hemoglobin 8.6 g/dL (11.2-15.7); Lymphocytes # (Auto) 1.72 K/mcL (1.50-4.80); Lymphocytes % (Auto) 16.3 % (15.5-49.0); Mean Cell Volume 95.7 fL (80.0-100.0); Mean Corpuscular HGB Conc 29.8 g/dL (31.0-36.0); Mean Platelet Volume 9.9 fL (8.8-12.5); Monocytes # (Auto) 0.54 K/mcL (0.10-0.90); Monocytes % (Auto) 5.1 % (1.0-12.0); Neutrophils % (Auto) 59.5 % (38.0-78.0); Platelet Count 408 K/mcL (140-440); RBC 3.02 M/mcL (3.59-5.38); Red Cell Distribution Width 14.8 % (11.5-14.5); WBC 10.6 K/mcL (4.5-11.0)
[2022-04-21 07:10] LABS: ALT/SGPT 16 U/L (<40); AST/SGOT 16 U/L (<32); Albumin 2.5 gm/dL (3.2-5.2); Albumin/Globulin Ratio 0.7 (1.0-2.3); Alkaline Phosphatase 135 U/L (39-117); Bilirubin,Direct < 0.2 mg/dL (0-0.3); Bilirubin,Total < 0.2 mg/dL (0.1-1.0); Blood Urea Nitrogen 34 mg/dL (8-23); Calcium 8.9 mg/dL (8.6-10.4); Carbon Dioxide 28 mmol/L (22-30); Chloride 100 mmol/L (96-108); Globulin 3.5 gm/dL (2.2-3.7); Glomerular Filtration Rate 41; Glucose 86 mg/dL (70-105); Lactate Dehydrogenase 134 U/L (135-225); Phosphorous 3.3 mg/dL (2.5-4.5); Triglycerides 168 mg/dL (<150); Uric Acid 5.9 mg/dL (2.5-8.0)
[2022-04-21] MEDS ORDERED: SODIUM POLYSTYRENE SULFONATE 15 GM/60 ML SUSPENSION PO SCH (08:03)
[2022-04-21] MEDS: GABAPENTIN 300 MG CAPSULE PO SCH (08:32)
[2022-04-21] MEDS: lamoTRIgine 25 MG TABLET PO SCH (08:32)
[2022-04-21] MEDS: CITALOPRAM 20 MG TABLET PO SCH (08:32)
[2022-04-21] MEDS: ceFAZolin 1 GM VIAL IV SCH (08:33)
[2022-04-21] MEDS: HEPARIN 5,000 UNIT/ML VIAL SQ SCH (08:33)
[2022-04-21] MEDS: DOCUSATE SODIUM 100 MG CAPSULE PO SCH (09:00)
[2022-04-21] MEDS ORDERED: amLODIPine 10 MG TABLET PO SCH (09:00)
--- NOTE | 2022-04-21 12:26 | Nephrology Progress Note ---
SUBJECTIVE Subjective Patient information: Note initiated : 04/21/22 at 12:20 pm Service Date, if different from initiated Date: [] Patient: Corin Bryant 71 y/o F admitted on 04/19/22 for High K+. Chief Complaint: [Abnormal labs] Principal diagnosis: Hyperkalemia Interval history: Potassium to upper limit of normal. 1. Stop metoprolol due to its potential for increasing potassium by inhibiting cellular uptake 2. Increase the amlodipine from 5 to 10 mg daily to make up for the difference in metoprolol which was discontinued 3. Due to a platelet count greater than 500,000, the possibility exists that her platelets are lysing and releasing potassium elevating spuriously the serum potassium level... All blood work to be drawn from a peripheral stick with an 18-gauge or larger needle and avoid using her PICC line to do her serum chemistry labs. 4. Note the correlation between the development of thrombocytosis and hyperkalemia...This may all be pseudohyperkalemia Serum Potassium Platlete Count Pertinent ROS: Well versed on potassium restricted diet Additional PMFSH (Level 3 Only): Son with ESRD Her GFR is too good to explain her problems with potassium Constitutional Vitals: Vital Signs Temp Pulse Resp BP Pulse Ox O2 Del Method O2 Flow Rate 36.7 C 85 20 131/85 91 Nasal Cannula 2 04/21/22 11:30 04/21/22 11:30 04/21/22 11:30 04/21/22 11:30 04/21/22 11:30 04/21/22 11:30 04/21/22 11:30 Period Temp Pulse Resp BP Sys/Mcmahon Pulse Ox O2 Del Method O2 Flow Rate Last 24 Hr 36.2 C-36.8 C 84-91 16-20 113-143/63-89 88-97 Nasal Cannula- Room Air, Nasal Cannula 2-2 Intake and Output 04/21/22 04/21/22 04/21/22 03:59 11:59 19:59 Intake Total 750 Output Total 750 375 Balance 0 -375 Weight 111.221 kg Intake & Output: Intake & Output 04/21/22 04/21/22 04/21/22 03:59 11:59 19:59 Intake Total 750 Output Total 750 375 Balance 0 -375 Weight 111.221 kg Intake: IV 50 Oral 700 Output: Void Amount 750 375 Other: Urine Appearance Clear Clear Urine Color Bright Yellow Yellow General appearance: average body habitus Head Head exam: Present normal inspection Eye Eye exam: Present EOMI and PERRL ENT ENT exam: Present mucous membranes moist Respiratory Respiratory exam: Present CTAB Cardiovascular Cardiovascular exam: Present normal rate and rhythm, +S1 and +S2; Absent JVD GI/Abdominal GI/Abdominal exam: Present normal bowel sounds Neurological Exam Neurological exam: Present CN II-XII intact Additional comments: nonfocal Psychiatric Psychiatric exam: Present normal affect A/P Assessment and plan (1) Hypertension, essential: Status: Chronic Comment: 2005 (2) Acute hyperkalemia: Status: Acute Comment: Drug effect Diet seems to NOT be the issue GFR has improved while K went back up before this re-admission DISCONTINUE B-BLOCKERS HIGH PLATELET COUNT COUNT CONTRIBUTE TO PSEUDOHYPERKALEMIA BY LYSIS OF PLATELETS WHEN DRAWN THRU A PICC CATHETER OR LONG TRANSPORT TIME - TELL HOME HEALTH TO DRAW BLOOD VIA PERIPHERAL VENIPUNCTURE AND TRANSPORT IMMEDIATELY TO LAB OR TRANSPORT ON ICE. USE 18 GAUGE NEEDLE OR LARGER TO AVOID LYSIS. Plan 1 Hyperkalemia: DISCONTINUE B-BLOCKERS HIGH PLATELET COUNT COUNT CONTRIBUTE TO PSEUDOHYPERKALEMIA BY LYSIS OF PLATELETS WHEN DRAWN THRU A PICC CATHETER OR LONG TRANSPORT TIME - TELL HOME HEALTH TO DRAW BLOOD VIA PERIPHERAL VENIPUNCTURE AND TRANSPORT IMMEDIATELY TO LAB OR TRANSPORT ON ICE. USE 18 GAUGE NEEDLE OR LARGER TO AVOID LYSIS. 2. HTN STOP METOPROLOL DISCHARGE ON AMLODIPINE 10 MG A DAY IN PLACE OF PRIOR DOSE OF 5 MG QD 3. ARF ON CKD 4 BACK TO BASELINE AVOID RAASI THERAPY GOAL BP 130/80 AVOIDING RASSI THERAPY AND B-BLOCKERS NO NSAIDS OR ROLLINS II INHIBITORS Narrative A/P Narrative: ABOVE Plan of Treatment: ABOVE RENAL FOLLOW UP WITH DR MENDOZA No objection to discharge with medication changes and changes in technique of blood drawing as outlined above Time Spent With Patient Time: Total time spent is greater than 50% in coordination of care (as documented) at patient's floor/unit and/or counseling patient: Initial: Total time with patient: 40 - 54 minutes
== END 2022-04-21 12:40 | disposition home or self-care (01) | DRG 641 ==
LOC: ED 22:13 → ICU 04-19 10:10
PROVIDERS: ADMIT Internal Medicine; ATTEND Internal Medicine

== ENCOUNTER 2022-05-27 01:24 | Inpatient (IN) ==
[2022-05-27 01:51] LABS: POC Blood Urea Nitrogen 38 (6-20); POC Calcium, Ionized 0.97 (1.16-1.32); POC Chloride 98 (96-108); POC Creatinine 2.9 (0.6-1.2); POC Glucose, Random 90 (70-105); POC Potassium < 2.0 (3.3-5.1); POC Sodium 137 (133-145)
[2022-05-27] MEDS ORDERED: POTASSIUM CHLORIDE 20 MEQ in DEXTROSE 5% IN WATER 250 ML IV ONE (02:27)
[2022-05-27] MEDS ORDERED: 0.9 % SODIUM CHLORIDE 500 ML IV ONE (02:27)
[2022-05-27] MEDS ORDERED: POTASSIUM CHLORIDE 20 MEQ TABLET PO ONE ×2 (02:27→09:24)
[2022-05-27 02:57] LABS: Basophils # (Auto) 0.05 K/mcL (0.00-0.30); Basophils % (Auto) 0.6 % (0.0-2.0); Eosinophils # (Auto) 0.19 K/mcL (0.00-0.70); Eosinophils % (Auto) 2.2 % (0.0-7.0); Hematocrit 24.6 % (34.1-44.9); Hemoglobin 8.1 g/dL (11.2-15.7); Lymphocytes % (Auto) 14.8 % (15.5-49.0); Mean Cell Volume 89.5 fL (80.0-100.0); Mean Corpuscular HGB Conc 32.9 g/dL (31.0-36.0); Mean Platelet Volume 9.7 fL (8.8-12.5); Monocytes # (Auto) 0.75 K/mcL (0.10-0.90); Monocytes % (Auto) 8.5 % (1.0-12.0); Neutrophils % (Auto) 73.4 % (38.0-78.0); Platelet Count 421 K/mcL (140-440); RBC 2.75 M/mcL (3.59-5.38); Red Cell Distribution Width 16.5 % (11.5-14.5); WBC 8.8 K/mcL (4.5-11.0)
[2022-05-27] MEDS ORDERED: MAGNESIUM SULFATE 2 GM/50 ML BAG IV ONE (03:32)
--- NOTE | 2022-05-27 03:33 | Emergency Department Note ---
Recheck HPI General Chief Complaint: Recheck/Abnormal Lab/Rx Stated Complaint: Hypokalemia Time Seen by Provider: 05/27/22 01:50 Source: family Mode of arrival: wheelchair History of Present Illness HPI Narrative: The patient is a 72-year-old female with a history of CKD, COPD, aortic aneurysm, recurrent C. 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 Patient was sent in after her home health nurse found her to be hypokalemic on routine labs at home. The patient has no complaints. Specifically, she denies any palpitations, dizziness, weakness, paralysis. She has actually been hospitalized here twice over the last few months with hyperkalemia thought to be secondary to her antibiotics her blood pressure medications versus pseudo hyperkalemia secondary to thrombocytosis. Her metoprolol was recently stopped and her amlodipine was increased from 5 to 10 mg. She was also changed to a different antibiotic for her recurrent right knee infection (cefazolin). Related Data Home Medications Medication Instructions Recorded Confirmed citalopram 40 mg tablet 30 mg PO QDAY 11/11/21 05/27/22 tramadol 50 mg tablet 50 mg PO TIDP PRN Pain 11/11/21 05/27/22 cetirizine 10 mg tablet (Zyrtec) 10 mg PO QDAY 04/03/22 05/27/22 gabapentin 300 mg capsule 300 mg PO BID 04/03/22 05/27/22 hydrocodone 10 mg-acetaminophen 1 - 2 tab PO Q4-6HP PRN Pain 04/03/22 05/27/22 325 mg tablet lamotrigine 25 mg tablet 25 mg PO QDAY 04/20/22 05/27/22 Previous Rx's Medication Instructions Recorded albuterol sulfate 90 mcg/actuation 2 puff inhalation Q6H PRN 12/11/21 aerosol inhaler shortness of breath or wheezing #8.5 grams torsemide 20 mg tablet 20 mg PO QDAY #1 tab 04/04/22 cefazolin 1 gram solution for 1 g IV Q12H #28 ea 04/21/22 injection Allergies Allergy/AdvReac Type Severity Reaction Status Date / Time Sulfa (Sulfonamide Allergy Severe ANAPHALAXIS Verified 04/19/22 10:41 Antibiotics) [SULFA (SULFONAMIDE ANTIBIOTICS)] latex [LATEX] Allergy Mild SWELLING/RE Verified 04/19/22 10:41 DNESS Cortisone Allergy Unknown "SICK" Verified 04/19/22 10:41 imiquimod Allergy Unknown Unknown Verified 04/19/22 10:41 sulfamethoxazole Allergy Unknown Unknown Verified 04/19/22 10:41 [From ] trimethoprim [From ] Allergy Unknown Unknown Verified 04/19/22 10:41 Carbonic Anhydrase Inhibitors AdvReac Unknown advise not Verified 04/19/22 10:41 to take due to r/o cdiff iv contrast Allergy Mild Hives Uncoded 01/17/22 13:55 Review of Systems ROS ROS Narrative: Narrative: All systems ED: reviewed and negative except as stated. (10 point ROS) PFSH Narrative Patient History Narrative: Narrative: Medical/Surgical/Family History All Active Problems (Updated 05/27/22 @ 04:57 by Chandrakant Parks MD) Acute hypokalemia (Acute) QT prolongation (Acute) CKD (chronic kidney disease) stage 4, GFR 15-29 ml/min (Chronic) Tobacco use (Chronic) Arthritis (Chronic) Osteoarthritis (Chronic) Joint pain (Chronic) Depression (Chronic) Hypertension, essential (Chronic) Hyperlipidemia (Chronic) Recurrent Clostridium difficile diarrhea (Chronic) Stomach ache (Chronic) Ocular migraine (Chronic) Dizziness (Chronic) Aortic aneurysm (Chronic) Abnormal liver function test (Chronic) Paronychia (Acute) COPD (chronic obstructive pulmonary disease) (Chronic) Osteoarthrosis multiple sites, not specified as generalized (Chronic) Anxiety (Chronic) Pyelonephritis (Chronic) Myalgia (Chronic) Dysuria (Chronic) Basal cell carcinoma in situ of skin (Chronic) Knee pain, right (Chronic) Lumbar back pain (Chronic) Carpal tunnel syndrome, right upper limb (Chronic) Vesicular eczema of hands and feet (Chronic) Incontinence of feces with fecal urgency (Chronic) Dyspnea (Chronic) Abdominal pain, epigastric (Chronic) Bilateral thumb pain (Chronic) Nausea (Chronic) Tremor, unspecified (Chronic) Generalized headaches (Chronic) Recurrent acute sinusitis (Chronic) Mixed incontinence urge and stress (Chronic) Leg neuralgia (Chronic) Chronic venous insufficiency (Chronic) Clostridium difficile colitis (Chronic) Obesity (Chronic) Hypersomnia (Chronic) Nocturnal hypoxia (Chronic) Leg pain, right (Acute) Cellulitis of right leg (Acute) History of arthroplasty of right knee (Acute) Acute exacerbation of chronic obstructive airways disease (Acute) Sinusitis, acute (Acute) Headache (Acute) Tinnitus (Acute) COVID-19 (Acute) Hypoxia (Acute) Acute exacerbation of chronic obstructive pulmonary disease (Acute) Acute kidney injury (Acute) Acute hyperkalemia (Acute) Allergic drug rash due to non-narcotic analgesic (Acute) Acute renal failure superimposed on chronic kidney disease (Acute) Infection of total knee replacement (Acute) Acute hyperkalemia (Acute) Leukocytosis (Acute) Medical History Abdominal pain, epigastric Abnormal liver function test Anxiety Aortic aneurysm Arthritis 2006 Basal cell carcinoma in situ of skin Shoulder Bilateral thumb pain Carpal tunnel syndrome, right upper limb Chronic venous insufficiency Clostridium difficile colitis COPD (chronic obstructive pulmonary disease) Depression 2006 Dizziness 2015 Dyspnea Dysuria Generalized headaches Headache Hepatitis HIV antibody positive Hyperlipidemia 2006 Hypersomnia Hypertension, essential 2006 Incontinence of feces with fecal urgency Joint pain 2006 Knee pain, right Leg neuralgia Lumbar back pain Mixed incontinence urge and stress Myalgia Nausea Nocturnal hypoxia Obesity Ocular migraine 2015 Osteoarthritis 2006 Osteoarthrosis multiple sites, not specified as generalized Pyelonephritis Recurrent acute sinusitis Recurrent Clostridium difficile diarrhea 2016 Sinusitis, acute Stomach ache 2016 following c-diff Tinnitus Tobacco use Tremor, unspecified Vesicular eczema of hands and feet Surgical History H/O colonoscopy (01/17/16) History of carpal tunnel surgery (~2012) Left History of total knee arthroplasty (~2012) Left S/P hip replacement (~2014) Left S/P knee replacement 2015 Family History Mother Arthritis Alzheimer's disease Stroke Heart disease Diabetes Father Arthritis Liver cancer Stroke Heart disease Sister Arthritis Alzheimer's disease Hypertension, essential Thyroid disease Social History Smoking Status: Current every day smoker Alcohol Intake Frequency: does not drink Substance Use: marijuana Exam Narrative Narrative: Constitutional: Well-nourished, well-developed. No acute distress. HEENT: Normocephalic. Atraumatic. EOMI. Conjunctive are clear bilaterally. OP clear. Uvula midline. Tacky mucous membranes. Cardiovascular: Regular rate and rhythm. No murmurs, rubs, gallops. Pulmonary: No increased work of breathing. Lung sounds clear to auscultation bilaterally. No wheezing, rales, or rhonchi. Abdomen: Soft, nondistended, nontender. No HSM. Musculoskeletal: Normal muscular development. 2+ right lower extremity edema. 1+ left lower extremity edema. Large surgical incision site appreciated over the right anterior knee with david in place. Incision site is closed and well approximated and seems to be healing appropriately. She has circumferential erythema in the right lower extremity from the ankle to the knee. Skin: Warm, dry. See above. Neurologic: Awake, alert, and oriented. Motor function grossly intact. Afocal. Course Course Course Narrative: The patient is HD stable. 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 She does have a prolonged QTc interval at 603 ms. QRS also prolonged at 162 ms. Patient's QRS on her EKG on 04/18/2022 was 146 ms and her QTc was WNL at that time. Right bundle branch block is not new. Patient's creatinine is 2.9 today. Creatinine has ranged from 1.6-3.7 over the past 1 year. Potassium is now 1.9. Mg 1.6. Platelets 421. Hemoglobin stable at 8.1. The patient is HD stable. Her blood pressures have been soft which she states has been the case at home for the last several days. She states that her right knee is actually feeling much better. She has no fevers. She was given 500 cc NS, 20 mEq IV potassium and 40 mEq of p.o. potassium here in the ED as well as 2 mg IV magnesium. She does not take a potassium supplement but does take daily torsemide. Her beta-eliane was recently stopped and her antibiotic was changed to cefazolin due to concern that these may have been contributing to her previous episodes of hyperkalemia. Nonetheless she is hypokalemic today with changes on her EKG and given her CKD and history of hyperkalemia as well as EKG changes, Dr. Rocha did agree to admit the patient for further observation and treatment. Reevaluation(s) Reevaluation #1: Patient remains HD stable. Blood pressure 98/50 when sleeping. Patient has no complaints at this time. Time: 04:45 Consultations Consultation #1: Dr. Rocha, hospitalist agrees to admit patient for hypokalemia Time: 04:50 Vital Signs Vital signs: Vital Signs Temperature 97.3 F 05/27/22 01:26 Pulse Rate 68 05/27/22 01:26 Respiratory Rate 14 05/27/22 01:26 Blood Pressure 93/53 05/27/22 01:26 Pulse Oximetry (%) 95 05/27/22 01:26 Oxygen Delivery Method Room Air 05/27/22 01:26 Temperature 97.3 F 05/27/22 01:26 Pulse Rate 87 05/27/22 04:46 Respiratory Rate 17 05/27/22 04:46 Blood Pressure 98/50 05/27/22 04:46 Pulse Oximetry (%) 93 05/27/22 04:46 Oxygen Delivery Method Room Air 05/27/22 01:26 MDM MDM Narrative Medical decision making narrative: Narrative: Differential Diagnosis Differential Diagnosis: Bradycardia, QRS prolongation, QT prolongation, arrhythmia Medical Records Medical records reviewed: Yes I reviewed the patient's medical records. Medical records narrative: I reviewed the patient's previous hospitalization notes including her discharge summary from 04/21/2022 as well as her nephrology progress note from 04/21/2022 when patient was hospitalized here with hyperkalemia. Her beta-eliane was stopped. Her amlodipine was increased. Her antibiotic was recently changed to cefazolin. Lab Data Lab results reviewed: Yes I reviewed the patient's lab results. 05/27/22 02:23 05/27/22 03:33 Labs: Lab Results 05/27/22 05/27/22 05/27/22 Range/Units 01:46 02:23 02:23 WBC 8.8 (4.5-11.0) K/mcL RBC 2.75 L (3.59-5.38) M/mcL Hgb 8.1 L (11.2-15.7) g/dL Hct 24.6 L (34.1-44.9) % POC Hct 27.0 L (36-48) MCV 89.5 (80.0-100.0) fL MCH 29.5 (26.0-34.0) pg MCHC 32.9 (31.0-36.0) g/dL RDW 16.5 H (11.5-14.5) % Plt Count 421 (140-440) K/mcL MPV 9.7 (8.8-12.5) fL Immature Gran % (Auto) 0.5 (0.0-0.5) % Neut % (Auto) 73.4 (38.0-78.0) % Lymph % (Auto) 14.8 L (15.5-49.0) % Ward % (Auto) 8.5 (1.0-12.0) % Eos % (Auto) 2.2 (0.0-7.0) % Baso % (Auto) 0.6 (0.0-2.0) % Lymph # (Auto) 1.30 L (1.50-4.80) K/mcL Ward # (Auto) 0.75 (0.10-0.90) K/mcL Eos # (Auto) 0.19 (0.00-0.70) K/mcL Baso # (Auto) 0.05 (0.00-0.30) K/mcL Immature Gran # 0.04 (0.00-0.05) K/mcl Absolute Neutrophils 6.46 (1.80-8.00) K/mcL POC Sodium 137 (133-145) Sodium (133-145) mmol/L POC Potassium < 2.0 L* (3.3-5.1) Potassium (3.3-5.1) mmol/L POC Chloride 98 (96-108) Chloride (96-108) mmol/L Carbon Dioxide (22-30) mmol/L POC Total CO2 25.0 (22-30) Anion Gap (8.0-16.0) POC BUN 38 H (6-20) BUN (8-23) mg/dL Creatinine (0.6-1.1) mg/dL POC Creatinine 2.9 H (0.6-1.2) GFR Calculation Glucose (70-105) mg/dL POC Glucose 90 (70-105) Calcium (8.6-10.4) mg/dL POC WB Ioniz Calcium 0.97 L (1.16-1.32) Magnesium 1.6 (1.6-2.5) mg/dL Total Bilirubin (0.1-1.0) mg/dL AST (<32) U/L ALT (<40) U/L Alkaline Phosphatase (39-117) U/L Total Protein (5.9-8.4) gm/dL Albumin (3.2-5.2) gm/dL Globulin (2.2-3.7) gm/dL Albumin/Globulin Ratio (1.0-2.3) 05/27/22 Range/Units 03:33 WBC (4.5-11.0) K/mcL RBC (3.59-5.38) M/mcL Hgb (11.2-15.7) g/dL Hct (34.1-44.9) % POC Hct (36-48) MCV (80.0-100.0) fL MCH (26.0-34.0) pg MCHC (31.0-36.0) g/dL RDW (11.5-14.5) % Plt Count (140-440) K/mcL MPV (8.8-12.5) fL Immature Gran % (Auto) (0.0-0.5) % Neut % (Auto) (38.0-78.0) % Lymph % (Auto) (15.5-49.0) % Ward % (Auto) (1.0-12.0) % Eos % (Auto) (0.0-7.0) % Baso % (Auto) (0.0-2.0) % Lymph # (Auto) (1.50-4.80) K/mcL Ward # (Auto) (0.10-0.90) K/mcL Eos # (Auto) (0.00-0.70) K/mcL Baso # (Auto) (0.00-0.30) K/mcL Immature Gran # (0.00-0.05) K/mcl Absolute Neutrophils (1.80-8.00) K/mcL POC Sodium (133-145) Sodium 134 (133-145) mmol/L POC Potassium (3.3-5.1) Potassium 1.9 L* (3.3-5.1) mmol/L POC Chloride (96-108) Chloride 94 L (96-108) mmol/L Carbon Dioxide 23 (22-30) mmol/L POC Total CO2 (22-30) Anion Gap 17.0 H (8.0-16.0) POC BUN (6-20) BUN 40 H (8-23) mg/dL Creatinine 2.4 H (0.6-1.1) mg/dL POC Creatinine (0.6-1.2) GFR Calculation 19 Glucose 88 (70-105) mg/dL POC Glucose (70-105) Calcium 7.5 L (8.6-10.4) mg/dL POC WB Ioniz Calcium (1.16-1.32) Magnesium (1.6-2.5) mg/dL Total Bilirubin 0.3 (0.1-1.0) mg/dL AST 20 (<32) U/L ALT 7 (<40) U/L Alkaline Phosphatase 109 (39-117) U/L Total Protein 6.0 (5.9-8.4) gm/dL Albumin 3.0 L (3.2-5.2) gm/dL Globulin 3.0 (2.2-3.7) gm/dL Albumin/Globulin Ratio 1.0 (1.0-2.3) EKG Data EKG #1: EKG attestation: Yes I reviewed and interpreted this EKG. EKG results narrative: Sinus rhythm. Rate 80s. Normal axis. Right bundle branch block (unchanged from previous EKG). Nonspecific lateral ST changes. QTc 603 ms. Premature atrial complex. Discharge Plan Patient/Caregiver Discharge Instructions Pt seen by VIDEOTAPE OPERATOR/PA only: No Clinical Impression: Acute hypokalemia, QT prolongation Patient Disposition: Xfer As Inpt ([facility]) Condition: Good Follow up with: Destiny Sarabia MD [Primary Care Provider] - Prescriptions: No Action citalopram 40 mg tablet 30 mg PO QDAY tramadol 50 mg tablet 50 mg PO TIDP PRN (Reason: Pain) [id number] [Trelegy Ellipta] 100-62.5-25 mcg blister with device 1 inh inhalation QDAY 0RF albuterol sulfate 90 mcg/actuation HFA aerosol inhaler 2 puff inhalation Q6H PRN (Reason: shortness of breath or wheezing) Qty: 8.5 0RF cetirizine [Zyrtec] 10 mg Tablet 10 mg PO QDAY hydrocodone-acetaminophen 10-325 mg Tablet 1 - 2 tab PO Q4-6HP PRN (Reason: Pain) Patient Comments: "has not been taking it for weeks." Was taking after her knee surgery. gabapentin 300 mg capsule 300 mg PO BID torsemide 20 mg tablet 20 mg PO QDAY Qty: 1 0RF Patient Comments: "arthritis pain" lamotrigine 25 mg tablet 25 mg PO QDAY cefazolin 1 gram recon soln 1 g IV Q12H Qty: 28 0RF
[2022-05-27 04:03] LABS: ALT/SGPT 7 U/L (<40); AST/SGOT 20 U/L (<32); Alkaline Phosphatase 109 U/L (39-117); Bilirubin,Total 0.3 mg/dL (0.1-1.0); Blood Urea Nitrogen 40 mg/dL (8-23); Calcium 7.5 mg/dL (8.6-10.4); Carbon Dioxide 23 mmol/L (22-30); Chloride 94 mmol/L (96-108); Glomerular Filtration Rate 19; Glucose 88 mg/dL (70-105)
--- NOTE | 2022-05-27 04:58 | Internal Med History&Physical ---
HPI History of Present Illness Patient information: Note initiated : 05/27/22 at 4:56 am Service Date, if different from initiated Date: [] Patient: Corin Bryant 72 y/o F admitted on for Hypokalemia. Chief Complaint: [] History of present illness: Ms. Bryant is a 72 year old female with a history of hypertension, CKD stage 4, chronic anemia, aortic aneurysm, COPD, obesity, prosthetic right knee infection which she says currently in the first stage of a two-stage revision knee replacement and on prolonged IV antibiotic therapy with cefazolin via a right upper extremity PICC line. The patient presented to the emergency department after a home health nurse lab draw resulted in hypokalemia. In the emergency department, the patient had a potassium level of 1.9. EKG showed a prolonged QT interval, prolonged QRS. The patient received oral and IV potassium in the ED. Hospital medicine asked to admit the patient for hypokalemia. The patient says that she has been feeling okay, she did recently double the dose of torsemide from torsemide 20 mg to torsemide 40 mg once a day however she does not recall when she did that. The patient does have a history of hyperkalemia for which she was hospitalized in April 2022. At that time, the patient's metoprolol was discontinued due to the possibility of it causing high potassium. The patient was started on amlodipine instead for hypertension. The patient was discharged with torsemide 20 mg once a day, sometime between day of discharge which was 04/21/2022 and this hospital admission the dose had been increased to torsemide 40 mg daily. Suspect that reason for hypokalemia is the recent increase in loop diuretic dose. Review of systems Constitutional: no fever, fatigue, or weight loss Eyes: no vision changes or pain Cardiovascular: no chest pain, no palpitations Respiratory: no cough or dyspnea Gastrointestinal: no abdominal pain, no nausea, vomiting, or diarrhea Genitourinary: no dysuria or difficulty voiding Musculoskeletal: Bilateral lower extremity edema, right knee tenderness. Integumentary: Right knee redness. Neurological: no focal weakness or numbness Psychiatric: no anxiety or depression Physical exam Head: Atraumatic, normal inspection. Eyes: normal appearance, no scleral icterus. Neck: full ROM Respiratory: no respiratory distress. Cardiovascular: normal rate and rhythm, S1, S2. GI/Abdominal: soft, nontender, no guarding. Extremities: Bilateral extremity lower edema, left greater than right. Neurological: CN II-XII intact, intact motor, intact sensation. Psychiatric: normal mood. Skin: Surgical incision at right knee present, redness and tenderness over right knee. PFSH PFSH All Active Problems (Updated 05/27/22 @ 04:57 by Chandrakant Parks MD) Acute hypokalemia (Acute) QT prolongation (Acute) CKD (chronic kidney disease) stage 4, GFR 15-29 ml/min (Chronic) Tobacco use (Chronic) Arthritis (Chronic) Osteoarthritis (Chronic) Joint pain (Chronic) Depression (Chronic) Hypertension, essential (Chronic) Hyperlipidemia (Chronic) Recurrent Clostridium difficile diarrhea (Chronic) Stomach ache (Chronic) Ocular migraine (Chronic) Dizziness (Chronic) Aortic aneurysm (Chronic) Abnormal liver function test (Chronic) Paronychia (Acute) COPD (chronic obstructive pulmonary disease) (Chronic) Osteoarthrosis multiple sites, not specified as generalized (Chronic) Anxiety (Chronic) Pyelonephritis (Chronic) Myalgia (Chronic) Dysuria (Chronic) Basal cell carcinoma in situ of skin (Chronic) Knee pain, right (Chronic) Lumbar back pain (Chronic) Carpal tunnel syndrome, right upper limb (Chronic) Vesicular eczema of hands and feet (Chronic) Incontinence of feces with fecal urgency (Chronic) Dyspnea (Chronic) Abdominal pain, epigastric (Chronic) Bilateral thumb pain (Chronic) Nausea (Chronic) Tremor, unspecified (Chronic) Generalized headaches (Chronic) Recurrent acute sinusitis (Chronic) Mixed incontinence urge and stress (Chronic) Leg neuralgia (Chronic) Chronic venous insufficiency (Chronic) Clostridium difficile colitis (Chronic) Obesity (Chronic) Hypersomnia (Chronic) Nocturnal hypoxia (Chronic) Leg pain, right (Acute) Cellulitis of right leg (Acute) History of arthroplasty of right knee (Acute) Acute exacerbation of chronic obstructive airways disease (Acute) Sinusitis, acute (Acute) Headache (Acute) Tinnitus (Acute) COVID-19 (Acute) Hypoxia (Acute) Acute exacerbation of chronic obstructive pulmonary disease (Acute) Acute kidney injury (Acute) Acute hyperkalemia (Acute) Allergic drug rash due to non-narcotic analgesic (Acute) Acute renal failure superimposed on chronic kidney disease (Acute) Infection of total knee replacement (Acute) Acute hyperkalemia (Acute) Leukocytosis (Acute) Medical History Abdominal pain, epigastric Abnormal liver function test Anxiety Aortic aneurysm Arthritis 2006 Basal cell carcinoma in situ of skin Shoulder Bilateral thumb pain Carpal tunnel syndrome, right upper limb Chronic venous insufficiency Clostridium difficile colitis COPD (chronic obstructive pulmonary disease) Depression 2006 Dizziness 2015 Dyspnea Dysuria Generalized headaches Headache Hepatitis HIV antibody positive Hyperlipidemia 2006 Hypersomnia Hypertension, essential 2006 Incontinence of feces with fecal urgency Joint pain 2006 Knee pain, right Leg neuralgia Lumbar back pain Mixed incontinence urge and stress Myalgia Nausea Nocturnal hypoxia Obesity Ocular migraine 2015 Osteoarthritis 2006 Osteoarthrosis multiple sites, not specified as generalized Pyelonephritis Recurrent acute sinusitis Recurrent Clostridium difficile diarrhea 2016 Sinusitis, acute Stomach ache 2016 following c-diff Tinnitus Tobacco use Tremor, unspecified Vesicular eczema of hands and feet Surgical History H/O colonoscopy (01/17/16) History of carpal tunnel surgery (~2012) Left History of total knee arthroplasty (~2012) Left S/P hip replacement (~2014) Left S/P knee replacement 2015 Family History Mother Arthritis Alzheimer's disease Stroke Heart disease Diabetes Father Arthritis Liver cancer Stroke Heart disease Sister Arthritis Alzheimer's disease Hypertension, essential Thyroid disease Social History marital status: occupational status: employed occupation: [place] other: Children-4 smoking status: Current every day smoker tobacco type: cigarettes per day: 5 pack-years: 50 alcohol intake frequency: does not drink substance use type: marijuana MEDS/ALLERGIES Home Medications and Allergies Home Medications Medication Instructions Recorded Confirmed Type citalopram 40 mg tablet 30 mg PO QDAY 11/11/21 05/27/22 History tramadol 50 mg tablet 50 mg PO TIDP PRN Pain 11/11/21 05/27/22 History albuterol sulfate 90 mcg/actuation 2 puff inhalation Q6H PRN 12/11/21 05/27/22 Rx aerosol inhaler shortness of breath or wheezing #8.5 grams cetirizine 10 mg tablet (Zyrtec) 10 mg PO QDAY 04/03/22 05/27/22 History gabapentin 300 mg capsule 300 mg PO BID 04/03/22 05/27/22 History hydrocodone 10 mg-acetaminophen 1 - 2 tab PO Q4-6HP PRN Pain 04/03/22 05/27/22 History 325 mg tablet torsemide 20 mg tablet 20 mg PO QDAY #1 tab 04/04/22 05/27/22 Rx lamotrigine 25 mg tablet 25 mg PO QDAY 04/20/22 05/27/22 History cefazolin 1 gram solution for 1 g IV Q12H #28 ea 04/21/22 05/27/22 Rx injection Allergies Allergy/AdvReac Type Severity Reaction Status Date / Time Sulfa (Sulfonamide Allergy Severe ANAPHALAXIS Verified 04/19/22 10:41 Antibiotics) [SULFA (SULFONAMIDE ANTIBIOTICS)] latex [LATEX] Allergy Mild SWELLING/RE Verified 04/19/22 10:41 DNESS Cortisone Allergy Unknown "SICK" Verified 04/19/22 10:41 imiquimod Allergy Unknown Unknown Verified 04/19/22 10:41 sulfamethoxazole Allergy Unknown Unknown Verified 04/19/22 10:41 [From ] trimethoprim [From ] Allergy Unknown Unknown Verified 04/19/22 10:41 Carbonic Anhydrase Inhibitors AdvReac Unknown advise not Verified 04/19/22 10:41 to take due to r/o cdiff iv contrast Allergy Mild Hives Uncoded 01/17/22 13:55 EXAM Constitutional Vitals: Temp Pulse Resp BP Pulse Ox O2 Del Method 97.3 F 87 17 98/50 93 Room Air 05/27/22 01:26 05/27/22 04:46 05/27/22 04:46 05/27/22 04:46 05/27/22 04:46 05/27/22 01:26 DATA Data Completed and Pending Labs: Labs from last 24 hours 05/27/22 05/27/22 05/27/22 03:33 02:23 02:23 WBC 8.8 RBC 2.75 L Hgb 8.1 L Hct 24.6 L POC Hct MCV 89.5 MCH 29.5 MCHC 32.9 RDW 16.5 H Plt Count 421 MPV 9.7 Immature Gran % (Auto) 0.5 Neut % (Auto) 73.4 Lymph % (Auto) 14.8 L [place] % (Auto) 8.5 Eos % (Auto) 2.2 Baso % (Auto) 0.6 Lymph # (Auto) 1.30 L [place] # (Auto) 0.75 Eos # (Auto) 0.19 Baso # (Auto) 0.05 Immature Gran # 0.04 Absolute Neutrophils 6.46 POC Sodium Sodium 134 POC Potassium Potassium 1.9 L* POC Chloride Chloride 94 L Carbon Dioxide 23 POC Total CO2 Anion Gap 17.0 H POC BUN BUN 40 H Creatinine 2.4 H POC Creatinine GFR Calculation 19 Glucose 88 POC Glucose Calcium 7.5 L POC WB Ioniz Calcium Magnesium 1.6 Total Bilirubin 0.3 AST 20 ALT 7 Alkaline Phosphatase 109 Total Protein 6.0 Albumin 3.0 L Globulin 3.0 Albumin/Globulin Ratio 1.0 05/27/22 01:46 WBC RBC Hgb Hct POC Hct 27.0 L MCV MCH MCHC RDW Plt Count MPV Immature Gran % (Auto) Neut % (Auto) Lymph % (Auto) [place] % (Auto) Eos % (Auto) Baso % (Auto) Lymph # (Auto) [place] # (Auto) Eos # (Auto) Baso # (Auto) Immature Gran # Absolute Neutrophils POC Sodium 137 Sodium POC Potassium < 2.0 L* Potassium POC Chloride 98 Chloride Carbon Dioxide POC Total CO2 25.0 Anion Gap POC BUN 38 H BUN Creatinine POC Creatinine 2.9 H GFR Calculation Glucose POC Glucose 90 Calcium POC WB Ioniz Calcium 0.97 L Magnesium Total Bilirubin AST ALT Alkaline Phosphatase Total Protein Albumin Globulin Albumin/Globulin Ratio A/P Narrative A/P Narrative: Assessment: 72 year old female with a history of hypertension, CKD stage 4, chronic anemia, aortic aneurysm, COPD, obesity, prosthetic right knee infection currently on cefazolin treatment admitted for severe hypokalemia. #Severe hypokalemia #Hypervolemia #CKD stage 4 #Hypertension #COPD #Aortic aneurysm #Chronic prosthetic right knee infection currently undergoing two-stage revision treatment #Chronic right knee pain on opioid #History of C difficile infection #Obesity Plan: -Potassium supplement with caution cautiously as the patient has CKD. -Monitor potassium closely until normal. -Monitor magnesium level. -Transthoracic echocardiogram. -Bilateral lower venous extremity duplex. -Analgesics as needed. -Hold Torsemide for now, will need to be restarted on a diuretic after potassium is normal. -Continue Cefazolin for right prosthetic knee infection. -Home medication reconciliation. -ekg monitor. -Regular diet. -DVT prophylaxis: Heparin SQ -Disposition: Inpatient MedSurg. Time Spent With Patient Time: Total time spent is greater than 50% in coordination of care (as documented) at patient's floor/unit and/or counseling patient: QUALITY Stroke Symptom Onset Unknown: No
--- NOTE | 2022-05-27 05:31 | Emergency Department Note ---
Recheck HPI General Chief Complaint: Recheck/Abnormal Lab/Rx Stated Complaint: Hypokalemia Time Seen by Provider: 05/27/22 01:50 Source: family Mode of arrival: wheelchair History of Present Illness HPI Narrative: Narrative: Related Data Home Medications Medication Instructions Recorded Confirmed citalopram 40 mg tablet 30 mg PO QDAY 11/11/21 05/27/22 tramadol 50 mg tablet 50 mg PO TIDP PRN Pain 11/11/21 05/27/22 cetirizine 10 mg tablet (Zyrtec) 10 mg PO QDAY 04/03/22 05/27/22 gabapentin 300 mg capsule 300 mg PO BID 04/03/22 05/27/22 hydrocodone 10 mg-acetaminophen 1 - 2 tab PO Q4-6HP PRN Pain 04/03/22 05/27/22 325 mg tablet lamotrigine 25 mg tablet 25 mg PO QDAY 04/20/22 05/27/22 Previous Rx's Medication Instructions Recorded albuterol sulfate 90 mcg/actuation 2 puff inhalation Q6H PRN 12/11/21 aerosol inhaler shortness of breath or wheezing #8.5 grams torsemide 20 mg tablet 20 mg PO QDAY #1 tab 04/04/22 cefazolin 1 gram solution for 1 g IV Q12H #28 ea 04/21/22 injection Allergies Allergy/AdvReac Type Severity Reaction Status Date / Time Sulfa (Sulfonamide Allergy Severe ANAPHALAXIS Verified 04/19/22 10:41 Antibiotics) [SULFA (SULFONAMIDE ANTIBIOTICS)] latex [LATEX] Allergy Mild SWELLING/RE Verified 04/19/22 10:41 DNESS Cortisone Allergy Unknown "SICK" Verified 04/19/22 10:41 imiquimod Allergy Unknown Unknown Verified 04/19/22 10:41 sulfamethoxazole Allergy Unknown Unknown Verified 04/19/22 10:41 [From Octra] trimethoprim [From Octra] Allergy Unknown Unknown Verified 04/19/22 10:41 Carbonic Anhydrase Inhibitors AdvReac Unknown advise not Verified 04/19/22 10:41 to take due to r/o cdiff iv contrast Allergy Mild Hives Uncoded 01/17/22 13:55 Review of Systems ROS ROS Narrative: Narrative: PFSH Narrative Patient History Narrative: Narrative: Medical/Surgical/Family History All Active Problems (Updated 05/27/22 @ 04:57 by Chandrakant Parks MD) Acute hypokalemia (Acute) QT prolongation (Acute) CKD (chronic kidney disease) stage 4, GFR 15-29 ml/min (Chronic) Tobacco use (Chronic) Arthritis (Chronic) Osteoarthritis (Chronic) Joint pain (Chronic) Depression (Chronic) Hypertension, essential (Chronic) Hyperlipidemia (Chronic) Recurrent Clostridium difficile diarrhea (Chronic) Stomach ache (Chronic) Ocular migraine (Chronic) Dizziness (Chronic) Aortic aneurysm (Chronic) Abnormal liver function test (Chronic) Paronychia (Acute) COPD (chronic obstructive pulmonary disease) (Chronic) Osteoarthrosis multiple sites, not specified as generalized (Chronic) Anxiety (Chronic) Pyelonephritis (Chronic) Myalgia (Chronic) Dysuria (Chronic) Basal cell carcinoma in situ of skin (Chronic) Knee pain, right (Chronic) Lumbar back pain (Chronic) Carpal tunnel syndrome, right upper limb (Chronic) Vesicular eczema of hands and feet (Chronic) Incontinence of feces with fecal urgency (Chronic) Dyspnea (Chronic) Abdominal pain, epigastric (Chronic) Bilateral thumb pain (Chronic) Nausea (Chronic) Tremor, unspecified (Chronic) Generalized headaches (Chronic) Recurrent acute sinusitis (Chronic) Mixed incontinence urge and stress (Chronic) Leg neuralgia (Chronic) Chronic venous insufficiency (Chronic) Clostridium difficile colitis (Chronic) Obesity (Chronic) Hypersomnia (Chronic) Nocturnal hypoxia (Chronic) Leg pain, right (Acute) Cellulitis of right leg (Acute) History of arthroplasty of right knee (Acute) Acute exacerbation of chronic obstructive airways disease (Acute) Sinusitis, acute (Acute) Headache (Acute) Tinnitus (Acute) COVID-19 (Acute) Hypoxia (Acute) Acute exacerbation of chronic obstructive pulmonary disease (Acute) Acute kidney injury (Acute) Acute hyperkalemia (Acute) Allergic drug rash due to non-narcotic analgesic (Acute) Acute renal failure superimposed on chronic kidney disease (Acute) Infection of total knee replacement (Acute) Acute hyperkalemia (Acute) Leukocytosis (Acute) Medical History Abdominal pain, epigastric Abnormal liver function test Anxiety Aortic aneurysm Arthritis 2006 Basal cell carcinoma in situ of skin Shoulder Bilateral thumb pain Carpal tunnel syndrome, right upper limb Chronic venous insufficiency Clostridium difficile colitis COPD (chronic obstructive pulmonary disease) Depression 2006 Dizziness 2015 Dyspnea Dysuria Generalized headaches Headache Hepatitis HIV antibody positive Hyperlipidemia 2006 Hypersomnia Hypertension, essential 2006 Incontinence of feces with fecal urgency Joint pain 2006 Knee pain, right Leg neuralgia Lumbar back pain Mixed incontinence urge and stress Myalgia Nausea Nocturnal hypoxia Obesity Ocular migraine 2014 Osteoarthritis 2006 Osteoarthrosis multiple sites, not specified as generalized Pyelonephritis Recurrent acute sinusitis Recurrent Clostridium difficile diarrhea 2016 Sinusitis, acute Stomach ache 2016 following c-diff Tinnitus Tobacco use Tremor, unspecified Vesicular eczema of hands and feet Surgical History H/O colonoscopy (01/17/16) History of carpal tunnel surgery (~2012) Left History of total knee arthroplasty (~2012) Left S/P hip replacement (~2014) Left S/P knee replacement 2015 Family History Mother Arthritis Alzheimer's disease Stroke Heart disease Diabetes Father Arthritis Liver cancer Stroke Heart disease Sister Arthritis Alzheimer's disease Hypertension, essential Thyroid disease Social History Smoking Status: Current every day smoker Alcohol Intake Frequency: does not drink Substance Use: marijuana Exam Narrative Narrative: Narrative: Course Vital Signs Vital signs: Vital Signs Temperature 97.3 F 05/27/22 01:26 Pulse Rate 68 05/27/22 01:26 Respiratory Rate 14 05/27/22 01:26 Blood Pressure 93/53 05/27/22 01:26 Pulse Oximetry (%) 95 05/27/22 01:26 Oxygen Delivery Method Room Air 05/27/22 01:26 Temperature 97.2 F 05/27/22 06:15 Pulse Rate 81 05/27/22 06:15 Respiratory Rate 18 05/27/22 06:15 Blood Pressure 94/68 05/27/22 06:15 Pulse Oximetry (%) 94 05/27/22 06:15 Oxygen Delivery Method Room Air 05/27/22 01:26 MDM MDM Narrative Medical decision making narrative: Narrative: Lab Data 05/27/22 02:23 05/27/22 03:33 Labs: Lab Results 05/27/22 05/27/22 05/27/22 Range/Units 01:46 02:23 02:23 WBC 8.8 (4.5-11.0) K/mcL RBC 2.75 L (3.59-5.38) M/mcL Hgb 8.1 L (11.2-15.7) g/dL Hct 24.6 L (34.1-44.9) % POC Hct 27.0 L (36-48) MCV 89.5 (80.0-100.0) fL MCH 29.5 (26.0-34.0) pg MCHC 32.9 (31.0-36.0) g/dL RDW 16.5 H (11.5-14.5) % Plt Count 421 (140-440) K/mcL MPV 9.7 (8.8-12.5) fL Immature Gran % (Auto) 0.5 (0.0-0.5) % Neut % (Auto) 73.4 (38.0-78.0) % Lymph % (Auto) 14.8 L (15.5-49.0) % [place] % (Auto) 8.5 (1.0-12.0) % Eos % (Auto) 2.2 (0.0-7.0) % Baso % (Auto) 0.6 (0.0-2.0) % Lymph # (Auto) 1.30 L (1.50-4.80) K/mcL [place] # (Auto) 0.75 (0.10-0.90) K/mcL Eos # (Auto) 0.19 (0.00-0.70) K/mcL Baso # (Auto) 0.05 (0.00-0.30) K/mcL Immature Gran # 0.04 (0.00-0.05) K/mcl Absolute Neutrophils 6.46 (1.80-8.00) K/mcL POC Sodium 137 (133-145) Sodium (133-145) mmol/L POC Potassium < 2.0 L* (3.3-5.1) Potassium (3.3-5.1) mmol/L POC Chloride 98 (96-108) Chloride (96-108) mmol/L Carbon Dioxide (22-30) mmol/L POC Total CO2 25.0 (22-30) Anion Gap (8.0-16.0) POC BUN 38 H (6-20) BUN (8-23) mg/dL Creatinine (0.6-1.1) mg/dL POC Creatinine 2.9 H (0.6-1.2) GFR Calculation Glucose (70-105) mg/dL POC Glucose 90 (70-105) Calcium (8.6-10.4) mg/dL POC WB Ioniz Calcium 0.97 L (1.16-1.32) Magnesium 1.6 (1.6-2.5) mg/dL Total Bilirubin (0.1-1.0) mg/dL AST (<32) U/L ALT (<40) U/L Alkaline Phosphatase (39-117) U/L Total Protein (5.9-8.4) gm/dL Albumin (3.2-5.2) gm/dL Globulin (2.2-3.7) gm/dL Albumin/Globulin Ratio (1.0-2.3) 05/27/22 Range/Units 03:33 WBC (4.5-11.0) K/mcL RBC (3.59-5.38) M/mcL Hgb (11.2-15.7) g/dL Hct (34.1-44.9) % POC Hct (36-48) MCV (80.0-100.0) fL MCH (26.0-34.0) pg MCHC (31.0-36.0) g/dL RDW (11.5-14.5) % Plt Count (140-440) K/mcL MPV (8.8-12.5) fL Immature Gran % (Auto) (0.0-0.5) % Neut % (Auto) (38.0-78.0) % Lymph % (Auto) (15.5-49.0) % [place] % (Auto) (1.0-12.0) % Eos % (Auto) (0.0-7.0) % Baso % (Auto) (0.0-2.0) % Lymph # (Auto) (1.50-4.80) K/mcL [place] # (Auto) (0.10-0.90) K/mcL Eos # (Auto) (0.00-0.70) K/mcL Baso # (Auto) (0.00-0.30) K/mcL Immature Gran # (0.00-0.05) K/mcl Absolute Neutrophils (1.80-8.00) K/mcL POC Sodium (133-145) Sodium 134 (133-145) mmol/L POC Potassium (3.3-5.1) Potassium 1.9 L* (3.3-5.1) mmol/L POC Chloride (96-108) Chloride 94 L (96-108) mmol/L Carbon Dioxide 23 (22-30) mmol/L POC Total CO2 (22-30) Anion Gap 17.0 H (8.0-16.0) POC BUN (6-20) BUN 40 H (8-23) mg/dL Creatinine 2.4 H (0.6-1.1) mg/dL POC Creatinine (0.6-1.2) GFR Calculation 19 Glucose 88 (70-105) mg/dL POC Glucose (70-105) Calcium 7.5 L (8.6-10.4) mg/dL POC WB Ioniz Calcium (1.16-1.32) Magnesium (1.6-2.5) mg/dL Total Bilirubin 0.3 (0.1-1.0) mg/dL AST 20 (<32) U/L ALT 7 (<40) U/L Alkaline Phosphatase 109 (39-117) U/L Total Protein 6.0 (5.9-8.4) gm/dL Albumin 3.0 L (3.2-5.2) gm/dL Globulin 3.0 (2.2-3.7) gm/dL Albumin/Globulin Ratio 1.0 (1.0-2.3) Discharge Plan Patient/Caregiver Discharge Instructions Pt seen by [employer]/PA only: No Clinical Impression: Acute hypokalemia, QT prolongation Patient Disposition: Xfer As Inpt ([facility]) Condition: Good Discharge Date/Time: 05/27/22 06:15
[2022-05-27] MEDS ORDERED: ONDANSETRON 4 MG/2 ML VIAL IV PRN (06:47)
[2022-05-27] MEDS ORDERED: ACETAMINOPHEN 325 MG TABLET PO PRN (06:47)
[2022-05-27] MEDS ORDERED: ALBUTEROL SULFATE 60 PUFF INHALER INH PRN (07:06)
[2022-05-27] MEDS ORDERED: traMADol 50 MG TABLET PO PRN (07:16)
[2022-05-27] MEDS: HYDROcodone/APAP 10/325MG TABLET PO PRN (08:51)
[2022-05-27] MEDS: GABAPENTIN 300 MG CAPSULE PO SCH ×2 (08:52→21:38)
[2022-05-27] MEDS: CETIRIZINE 10 MG TABLET PO SCH (08:52)
[2022-05-27] MEDS: HEPARIN 5,000 UNIT/ML VIAL SQ SCH ×2 (08:53→21:38)
[2022-05-27] MEDS: lamoTRIgine 25 MG TABLET PO SCH (08:53)
[2022-05-27] MEDS ORDERED: DOCUSATE SODIUM 100 MG CAPSULE PO SCH (09:00)
[2022-05-27] MEDS ORDERED: ceFAZolin 1 GM VIAL IV SCH (09:00)
[2022-05-27] MEDS: CITALOPRAM 20 MG TABLET PO SCH (11:36)
--- NOTE | 2022-05-27 11:40 | Ultrasound Report ---
CLINICAL INFORMATION: Bilateral lower extremity edema-right greater than left COMPARISON: None. FINDINGS: The entire deep venous system both lower extremities including the common femoral, superficial femoral, popliteal and paired trifurcation calf veins are easily compressible and show normal venous blood flow on color and spectral Doppler. No evidence of thrombus IMPRESSION: No evidence of deep vein thrombosis in either lower extremity.. 8 cm fluid collection or Mckeon's cyst seen in the medial right popliteal fossa. Interpreted and Authenticated by: Uriel Gallego 05/27/22
[2022-05-27] MEDS: NAFCILLIN 2 GM in 0.9 % SODIUM CHLORIDE 50 ML IV SCH ×3 (11:54→21:37)
[2022-05-27] MEDS ORDERED: 0.9 % SODIUM CHLORIDE 10 ML SYRINGE IV PRN (13:05)
[2022-05-27] MEDS: 0.9 % SODIUM CHLORIDE 10 ML SYRINGE IV SCH ×4 (16:29→21:41)
[2022-05-27] MEDS ORDERED: POTASSIUM CHLORIDE 20 MEQ TABLET PO SCH (17:59)
[2022-05-27] MEDS ORDERED: POTASSIUM CHLORIDE 20 MEQ in DEXTROSE 5% IN WATER 250 ML IV SCH (17:59)
[2022-05-27 19:32] LABS: Albumin 2.8 gm/dL (3.2-5.2); Calcium 7.5 mg/dL (8.6-10.4)
[2022-05-27] MEDS ORDERED: POTASSIUM CHLORIDE 20 MEQ/10 ML VIAL IV ONE (19:56)
[2022-05-27] MEDS: SENNOSIDES 1 TABLET PO SCH (21:41)
[2022-05-28] MEDS: NAFCILLIN 2 GM in 0.9 % SODIUM CHLORIDE 50 ML IV SCH ×6 (01:33→20:33)
[2022-05-28] MEDS: HYDROcodone/APAP 10/325MG TABLET PO PRN ×3 (05:00→21:52)
[2022-05-28] MEDS: 0.9 % SODIUM CHLORIDE 10 ML SYRINGE IV SCH ×5 (05:00→20:22)
[2022-05-28 06:25] LABS: Basophils # (Auto) 0.04 K/mcL (0.00-0.30); Basophils % (Auto) 0.5 % (0.0-2.0); Eosinophils # (Auto) 0.28 K/mcL (0.00-0.70); Eosinophils % (Auto) 3.4 % (0.0-7.0); Hematocrit 26.2 % (34.1-44.9); Hemoglobin 8.4 g/dL (11.2-15.7); Lymphocytes # (Auto) 1.67 K/mcL (1.50-4.80); Lymphocytes % (Auto) 20.4 % (15.5-49.0); Mean Cell Volume 89.7 fL (80.0-100.0); Mean Corpuscular HGB Conc 32.1 g/dL (31.0-36.0); Mean Platelet Volume 9.6 fL (8.8-12.5); Monocytes # (Auto) 0.57 K/mcL (0.10-0.90); Neutrophils % (Auto) 68.5 % (38.0-78.0); Platelet Count 457 K/mcL (140-440); RBC 2.92 M/mcL (3.59-5.38); WBC 8.2 K/mcL (4.5-11.0)
[2022-05-28 07:08] LABS: Albumin 2.9 gm/dL (3.2-5.2); Blood Urea Nitrogen 35 mg/dL (8-23); Calcium 8.1 mg/dL (8.6-10.4); Carbon Dioxide 21 mmol/L (22-30); Chloride 101 mmol/L (96-108); Glomerular Filtration Rate 29; Glucose 85 mg/dL (70-105); Phosphorous 3.9 mg/dL (2.5-4.5)
[2022-05-28] MEDS ORDERED: POTASSIUM CHLORIDE 20 MEQ TABLET PO ONE ×2 (07:19→12:00)
[2022-05-28] MEDS: HEPARIN 5,000 UNIT/ML VIAL SQ SCH ×2 (08:09→20:23)
[2022-05-28] MEDS: lamoTRIgine 25 MG TABLET PO SCH (08:11)
[2022-05-28] MEDS: GABAPENTIN 300 MG CAPSULE PO SCH ×2 (08:11→20:22)
[2022-05-28] MEDS: POTASSIUM CHLORIDE 20 MEQ TABLET PO SCH ×2 (08:11→16:41)
[2022-05-28] MEDS: CETIRIZINE 10 MG TABLET PO SCH (08:11)
[2022-05-28] MEDS: CITALOPRAM 20 MG TABLET PO SCH (08:11)
--- NOTE | 2022-05-28 10:07 | Internal Med Progress Note ---
SUBJECTIVE Subjective Patient information: Note initiated : 05/28/22 at 10:05 am Service Date, if different from initiated Date: [] Patient: Corin Bryant 72 y/o F admitted on 05/27/22 for Hypokalemia. Chief Complaint: [] Interval history: Ms. Bryant is a 72 year old female with a history of hypertension, CKD stage 4, chronic anemia, aortic aneurysm, COPD, obesity, prosthetic right knee infection which she says currently in the first stage of a two-stage revision knee replacement and on prolonged IV antibiotic therapy with cefazolin via a right upper extremity PICC line. The patient presented to the emergency department after a home health nurse lab draw resulted in hypokalemia. In the emergency department, the patient had a potassium level of 1.9. EKG showed a prolonged QT interval, prolonged QRS. The patient received oral and IV potassium in the ED. Hospital medicine asked to admit the patient for hypokalemia. The patient says that she has been feeling okay, she did recently double the dose of torsemide from torsemide 20 mg to torsemide 40 mg once a day however she does not recall when she did that. The patient does have a history of hyperkalemia for which she was hospitalized in April 2022. At that time, the patient's m etoprolol was discontinued due to the possibility of it causing high potassium. The patient was started on amlodipine instead for hypertension. The patient was discharged with torsemide 20 mg once a day, sometime between day of discharge which was 04/21/2022 and this hospital admission the dose had been increased to torsemide 40 mg daily. Suspect that reason for hypokalemia is the recent increase in loop diuretic dose. 05/28 No significant events overnight, morning lab potassium level was 2.9. We will check potassium again this afternoon. Scheduled potassium replacement at 40 mEq twice daily for now. Holding home torsemide due to hypokalemia, will need to resume diuretic when potassium level has stabilized as the patient is volume overloaded. Transthoracic echocardiogram performed yesterday showed an LVEF of 70 to 75%, normal LV diastolic function, normal RV size and systolic function, no significant valvulopathy. Bilateral lower extremity venous duplex was negative for deep vein thrombosis. Will check urine protein creatinine ratio. Physical exam Head: Atraumatic, normal inspection. Eyes: normal appearance, no scleral icterus. Neck: full ROM Respiratory: no respiratory distress. Cardiovascular: normal rate and rhythm, S1, S2. GI/Abdominal: soft, nontender, no guarding. Extremities: Bilateral extremity lower edema, left greater than right. Neurological: CN II-XII intact, intact motor, intact sensation. Psychiatric: normal mood. Skin: Surgical incision at right knee present, redness and tenderness over right knee. Constitutional Vitals: Vital Signs Temp Pulse Resp BP Pulse Ox O2 Del Method 96.8 F L 91 H 20 109/66 93 Room Air 05/28/22 08:00 05/28/22 08:00 05/28/22 08:00 05/28/22 08:00 05/28/22 08:00 05/28/22 08:00 Period Temp Pulse Resp BP Sys/Mcmahon Pulse Ox O2 Del Method O2 Flow Rate Last 24 Hr 96.8 F-98.8 F 83-99 16-20 104-124/50-112 91-96 Room Air-Room Air Intake and Output 05/27/22 05/28/22 05/28/22 19:59 03:59 11:59 Intake Total 700 680 250 Output Total 900 Balance -200 680 250 Weight 113.58 kg Intake & Output: Intake & Output 05/27/22 05/28/22 05/28/22 19:59 03:59 11:59 Intake Total 700 680 250 Output Total 900 Balance -200 680 250 Weight 113.58 kg Intake: IV 100 360 50 Nafcillin 2 gm In Sodium 100 100 50 Chloride 0.9% 50 ml @ 100 mls/ hr IV Q4H LOU Rx#:[id number] Potassium Chloride 20 Meq In 260 Dextrose 5% in Water 250 ml @ 130 mls/hr IV ONCE LOU Rx#: [id number] Oral 600 320 200 Output: Urine/Stool Mix 900 Other: Meal Dinner Breakfast Percent of Meal Consumed 75% 75% Stool Color Brown Stool Consistency Soft Liquid Loose OBJ DATA Labs 05/28/22 05:15 05/28/22 05:15 Labs: Abnormal Lab Results 05/28/22 05/28/22 05/27/22 05:15 05:15 15:54 RBC 2.92 L Hgb 8.4 L Hct 26.2 L POC Hct RDW 17.0 H Plt Count 457 H Lymph % (Auto) Lymph # (Auto) POC Potassium Potassium 2.9 L* 2.3 L* Chloride Carbon Dioxide 21 L Anion Gap POC BUN BUN 35 H 40 H Creatinine 1.7 H 2.0 H POC Creatinine Calcium 8.1 L 7.5 L POC WB Ioniz Calcium Albumin 2.9 L 2.8 L 05/27/22 05/27/22 05/27/22 15:54 07:58 03:33 RBC Hgb Hct POC Hct RDW Plt Count Lymph % (Auto) Lymph # (Auto) POC Potassium Potassium 2.3 L* 2.4 L* 1.9 L* Chloride 94 L Carbon Dioxide Anion Gap 17.0 H POC BUN BUN 40 H Creatinine 2.4 H POC Creatinine Calcium 7.5 L POC WB Ioniz Calcium Albumin 3.0 L 05/27/22 05/27/22 02:23 01:46 RBC 2.75 L Hgb 8.1 L Hct 24.6 L POC Hct 27.0 L RDW 16.5 H Plt Count Lymph % (Auto) 14.8 L Lymph # (Auto) 1.30 L POC Potassium < 2.0 L* Potassium Chloride Carbon Dioxide Anion Gap POC BUN 38 H BUN Creatinine POC Creatinine 2.9 H Calcium POC WB Ioniz Calcium 0.97 L Albumin Meds: Medications Acetaminophen (Acetaminophen 325 Mg Tablet) 650 mg PO Q6HP PRN; Protocol PRN Reason: Per Pain Protocol/Fever > 101 Hydrocodone Bitart/Acetaminophen (Hydrocodone/Apap 10/325mg Tablet) 1 - 2 tab PO Q4HP PRN; Protocol PRN Reason: Per Pain Protocol Last Admin: 05/28/22 05:00 Dose: 2 tab Albuterol Sulfate (Albuterol Sulfate 60 Puff Inhaler) 2 puff INH Q6H PRN PRN Reason: shortness of breath or wheezing Cetirizine HCl (Cetirizine 10 Mg Tablet) 10 mg PO QDAY [facility] Last Admin: 05/28/22 08:11 Dose: 10 mg Citalopram Hydrobromide (Citalopram 20 Mg Tablet) 20 mg PO DAILY [facility] Last Admin: 05/28/22 08:11 Dose: 20 mg Gabapentin (Gabapentin 300 Mg Capsule) 300 mg PO BID [facility] Last Admin: 05/28/22 08:11 Dose: 300 mg Heparin Sodium (Porcine) (Heparin 5,000 Unit/Ml Vial) 5,000 unit SQ Q12 [facility] Last Admin: 05/28/22 08:09 Dose: 5,000 unit Heparin Sodium (Porcine) (Heparin Flush 10 Units/Ml 5 Ml Syringe) 2 ml IV Q12 [facility] Last Admin: 05/28/22 08:11 Dose: 2 ml Nafcillin Sodium 2 gm/ Sodium (Chloride) 50 mls @ 100 mls/hr IV Q4H [facility] Last Admin: 05/28/22 08:11 Dose: 100 mls/hr Lamotrigine (Lamotrigine 25 Mg Tablet) 25 mg PO QDAY [facility] Last Admin: 05/28/22 08:11 Dose: 25 mg Ondansetron HCl (Ondansetron 4 Mg/2 Ml Vial) 4 mg IV Q6HP PRN PRN Reason: Nausea And Vomiting Potassium Chloride (Potassium Chloride 20 Meq Tablet) 40 meq PO BIDCC [facility] Stop: 05/28/22 17:31 Last Admin: 05/28/22 08:11 Dose: 40 meq Potassium Chloride (Potassium Chloride 20 Meq Tablet) 40 meq PO ONCE ONE Stop: 05/28/22 12:01 Senna (Sennosides 1 Tablet) 2 tab PO HS [facility] Last Admin: 05/27/22 21:41 Dose: Not Given Sodium Chloride (0.9 % Sodium Chloride 10 Ml Syringe) 10 ml IV Q8 [facility] Last Admin: 05/28/22 05:00 Dose: 10 ml Sodium Chloride (0.9 % Sodium Chloride 10 Ml Syringe) 10 ml IV Q12 [facility] Last Admin: 05/28/22 08:12 Dose: 10 ml Sodium Chloride (0.9 % Sodium Chloride 10 Ml Syringe) 10 ml IV UD PRN PRN Reason: FLUSH Tramadol HCl (Tramadol 50 Mg Tablet) 50 mg PO TIDP PRN PRN Reason: Pain A/P Narrative A/P Narrative: Assessment: 72 year old female with a history of CKD stage 4, chronic anemia, aortic aneurysm, COPD, obesity, prosthetic right knee infection currently on prolonged nafcillin treatment via a right upper extremity PICC line admitted for severe hypokalemia likely secondary to a recent increase in torsemide from 20 Marisela grams daily to 40 mg daily. #Severe hypokalemia likely secondary to loop diuretic #Hypervolemia probably secondary to chronic diastolic heart failure #CKD stage 4 #History of hypokalemia #Chronic prosthetic right knee infection currently undergoing two-stage revision treatment and on prolonged IV nafcillin treatment #COPD #Aortic aneurysm #Chronic right knee pain on opioid therapy #History of C difficile infection #Obesity Plan: -Potassium supplement with caution cautiously as the patient has CKD. -Monitor potassium closely until normal. -Monitor magnesium level. -Check urine protein creatinine ratio. -Analgesics as needed. -Hold Torsemide for now, will need to be restarted on a loop diuretic when potassium is normal. -Continue nafcillin IV for right prosthetic knee infection. -Continue home albuterol inhaler, Zyrtec, citalopram, gabapentin, Lamictal. -site monitor. -Regular low-sodium diet. -DVT prophylaxis: Heparin SQ -Disposition: Inpatient MedSurg. Time Spent With Patient Time: Total time spent is greater than 50% in coordination of care (as documented) at patient's floor/unit and/or counseling patient: QUALITY Stroke Symptom Onset Unknown: No VTE Deep Vein Thrombosis/Pulmonary Embolism Present on Admission: No
[2022-05-28] MEDS ORDERED: LOPERAMIDE 2 MG CAPSULE PO PRN (12:58)
[2022-05-28] MEDS: SENNOSIDES 1 TABLET PO SCH (20:22)
[2022-05-29] MEDS: NAFCILLIN 2 GM in 0.9 % SODIUM CHLORIDE 50 ML IV SCH ×3 (00:32→08:02)
[2022-05-29 02:24] LABS: Creatinine, Spot Urine 58.9 mg/dL (28.0-217.0); Pro:Crea Ratio 0.54 (<0.20)
[2022-05-29] MEDS: 0.9 % SODIUM CHLORIDE 10 ML SYRINGE IV SCH ×2 (05:53→08:04)
[2022-05-29 06:45] LABS: Albumin 2.6 gm/dL (3.2-5.2); Calcium 8.1 mg/dL (8.6-10.4); Phosphorous 3.3 mg/dL (2.5-4.5)
[2022-05-29] MEDS: HYDROcodone/APAP 10/325MG TABLET PO PRN ×2 (06:58→11:20)
[2022-05-29] MEDS: CITALOPRAM 20 MG TABLET PO SCH (08:02)
[2022-05-29] MEDS: HEPARIN 5,000 UNIT/ML VIAL SQ SCH (08:02)
[2022-05-29] MEDS: GABAPENTIN 300 MG CAPSULE PO SCH (08:03)
[2022-05-29] MEDS: CETIRIZINE 10 MG TABLET PO SCH (08:03)
[2022-05-29] MEDS: lamoTRIgine 25 MG TABLET PO SCH (08:03)
--- NOTE | 2022-05-29 09:08 | Discharge Summary ---
Discharge Provider Provider IMPORTANT FOLLOW-UP INFORMATION FOR PCP: 1. Repeat labs within 1 week 2. Have david removed 3. F/u with roving or yarn color checker for rash 4. F/u with ID for abx management as well Patient information: Note initiated : 05/29/22 at 9:08 am Service Date, if different from initiated Date: [] Patient: Corin Bryant 72 y/o F admitted on 05/27/22 for Hypokalemia. Chief Complaint: [HypoK] Date of admission: 05/27/22 06:15 Discharge date: 05/29/22 Primary care physician: Destiny Sarabia Consults: 05/27/22 Consult to Physician [CONS] Stat Comment: Consulting Provider: Nasim Rocha Reason For Exam: Physician to Consult COURSE Hospital Course Hospital course: Interval history: Ms. Bryant is a 72 year old female with a history of hypertension, CKD stage 4, chronic anemia, aortic aneurysm, COPD, obesity, prosthetic right knee infection which she says currently in the first stage of a two-stage revision knee replacement and on prolonged IV antibiotic therapy with cefazolin via a right upper extremity PICC line. The patient presented to the emergency department after a home health nurse lab draw resulted in hypokalemia. In the emergency department, the patient had a potassium level of 1.9. EKG showed a prolonged QT interval, prolonged QRS. The patient received oral and IV potassium in the ED. Hospital medicine asked to admit the patient for hypokalemia. The patient says that she has been feeling okay, she did recently double the dose of torsemide from torsemide 20 mg to torsemide 40 mg once a day however she does not recall when she did that. The patient does have a history of hyperkalemia for which she was hospitalized in April 2022. At that time, the patient's metoprolol was discontinued due to the possibility of it causing high potas sium. The patient was started on amlodipine instead for hypertension. The patient was discharged with torsemide 20 mg once a day, sometime between day of discharge which was 04/21/2022 and this hospital admission the dose had been increased to torsemide 40 mg daily. Suspect that reason for hypokalemia is the recent increase in loop diuretic dose. 05/28 No significant events overnight, morning lab potassium level was 2.9. We will check potassium again this afternoon. Scheduled potassium replacement at 40 mEq twice daily for now. Holding home torsemide due to hypokalemia, will need to resume diuretic when potassium level has stabilized as the patient is volume overloaded. Transthoracic echocardiogram performed yesterday showed an LVEF of 70 to 75%, normal LV diastolic function, normal RV size and systolic function, no significant valvulopathy. Bilateral lower extremity venous duplex was negative for deep vein thrombosis. Will check urine protein creatinine ratio. 05/29: I took over the care of this patient today which point she was medically optimized for discharge. The patient is doing much better and her potassium is normalized to 3.7. We will continue her home torsemide at a lower dose 20 mg p.o. daily instead of 40 mg p.o. daily as she does have chronic edema. She will need to have potassium supplementation while she is on loop diuretics. I have added KCl 10 mEq twice daily. She has been instructed to remove her david soon, have labs done within 1 week and also follow-up with infectious disease. Discharge diagnosis: Drug-induced hypokalemia Reason for admission: Hypokalemia, QRS prolongation Time Spent with Patient Time attestation: Total time spent providing and/or coordinating discharge services: Time spent: Greater than 30 minutes EXAM Constitutional Vitals: Temp Pulse Resp BP Pulse Ox O2 Del Method 97.2 F 92 H 20 117/72 94 Room Air 05/29/22 07:41 05/29/22 07:41 05/29/22 07:41 05/29/22 07:41 05/29/22 07:41 05/29/22 07:41 General appearance: average body habitus Head Head exam: Present atraumatic, normal inspection and normocephalic Eye Eye exam: Present EOMI, normal appearance and PERRL; Absent conjunctival injection ENT ENT exam: Present normal exam; Absent mucous membranes dry Neck Neck exam: Present full ROM; Absent lymphadenopathy Respiratory Respiratory exam: Present normal respiratory exam and CTAB; Absent decreased breath sounds, respiratory distress or wheezes Cardiovascular Cardiovascular exam: Present normal rate and rhythm and RRR; Absent JVD GI/Abdominal GI/Abdominal exam: Present normal bowel sounds and soft; Absent diminished bowel sounds, distended, guarding, mass, rebound or tenderness Neurological Exam Neurological exam: Present alert, CN II-XII intact and oriented X3 Psychiatric Psychiatric exam: Present normal affect and normal mood Skin Skin exam: Present intact and warm; Absent erythema, pallor, petechiae or rash Discharge Data Data Completed and Pending Labs on day of discharge: Labs from last 24 hours 05/29/22 05/29/22 05/28/22 05:33 01:36 16:55 Sodium 139 Potassium 3.7 3.3 Chloride 106 Carbon Dioxide 21 L Anion Gap 12.0 BUN 34 H Creatinine 1.5 H GFR Calculation 34 Glucose 83 Calcium 8.1 L Phosphorus 3.3 Albumin 2.6 L Ur Random Creatinine 58.9 U Random Total Protein 32 U [place] Prot/Creat Ratio 0.54 H Discharge Plan Patient/Caregiver Discharge Instructions Activity: as per physical therapy and increase activity as tolerated Prescriptions: New potassium chloride 10 mEq tablet extended release 10 meq PO BID Qty: 30 0RF Continued citalopram 40 mg tablet 30 mg PO QDAY tramadol 50 mg tablet 50 mg PO TIDP PRN (Reason: Pain) [id number] [Trelegy Ellipta] 100-62.5-25 mcg blister with device 1 inh inhalation QDAY 0RF albuterol sulfate 90 mcg/actuation HFA aerosol inhaler 2 puff inhalation Q6H PRN (Reason: shortness of breath or wheezing) Qty: 8.5 0RF cetirizine [Zyrtec] 10 mg Tablet 10 mg PO QDAY hydrocodone-acetaminophen 10-325 mg Tablet 1 - 2 tab PO Q4-6HP PRN (Reason: Pain) Patient Comments: "has not been taking it for weeks." Was taking after her knee surgery. gabapentin 300 mg capsule 300 mg PO BID torsemide 20 mg tablet 20 mg PO QDAY Qty: 1 0RF Patient Comments: "arthritis pain" lamotrigine 25 mg tablet 25 mg PO QDAY cefazolin 1 gram recon soln 1 g IV Q12H Qty: 28 0RF pramipexole 0.25 mg tablet 0.25 mg PO HS ferrous sulfate 325 mg (65 mg iron) Tablet 325 mg PO Q2D Patient Comments: Per Dr. Sarabia Rx Instructions: take every other day Follow Up Plan Follow up with: Destiny Sarabia MD [Primary Care Provider] - Patient Disposition: Home Health Service Prognosis: Good Rehab Potential: Good I certify that the patient requires SNF services: No Overall status at discharge: patient is progressing back to baseline Discharge Orders: Discharge Order (Routine); Ordered 05/29/22 Ordered By: Karli TRIPLETT VTE Deep Vein Thrombosis/Pulmonary Embolism Present on Admission: No
--- NOTE | 2022-05-29 15:07 | EKG ---
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
== END 2022-05-29 11:28 | disposition home health service (06) | DRG 641 ==
LOC: ED 01:24 → MEDSUR 06:15
PROVIDERS: ADMIT Internal Medicine; ATTEND Student in an Organized Health Care Education/Training Program